=== PATIENT | male | born 1925 | race Caucasian/White ===

== ENCOUNTER 2016-10-24 14:55 | Inpatient (IN) ==
--- NOTE | 2016-10-24 15:30 | Pulmonology History & Physical ---
Assessment and Plan (1) COPD (chronic obstructive pulmonary disease) Status: Acute Assessment and plan: He is having a bit of an exacerbation with increased sputum. He is placed on intravenous Levaquin and Solu-Medrol as well as nebulized bronchodilators. (2) Chronic atrial fibrillation Status: Chronic Assessment and plan: He is chronically on anticoagulants with Eliquis. Rate is controlled with digoxin and diltiazem. He is also on flecainide. (3) Esophageal carcinoma Status: Chronic Assessment and plan: With his nausea and vomiting and weight loss we may need to get this evaluated. For now we just need to rehydrate him. (4) Posttraumatic stress disorder Status: Chronic Assessment and plan: He gets quite anxious during exacerbations. This came on following service. (5) Nausea vomiting and diarrhea Status: Resolved Assessment and plan: Need to be sure he does not have theophylline or digoxin toxicity. Plan to rehydrate. May just be viral gastroenteritis. 12 point system: reviewed and no additional remarkable complaints except as stated - Constitutional Constitutional: Present: weakness, weight loss - Cardiovascular Cardiovascular: Present: dyspnea, dyspnea on exertion - Respiratory Respiratory: Present: cough, dyspnea, dyspnea on exertion, change in phlegm color - Gastrointestinal Gastrointestinal: Present: diarrhea, nausea, vomiting - Neurological Neurological: Present: dizziness - Psychiatric Psychiatric: Present: anxiety, other (He has a history of posttraumatic stress disorder) History of Present Illness Chief complaint: Nausea vomiting weight loss History of present illness: Mr. Ambrosio is a 89 year old male who has severe COPD. For the past 2 weeks he has had some nausea and vomiting poor appetite also has had some diarrhea. He has had nightmares and insomnia. He has lost about 10 pounds. He gets dizzy when he raises his head. He is on theophylline and digoxin. On a long list of other medications. Not on any recent antibiotics or steroids. He is also coughing up some very thick sputum. He has vomiting usually after he eats. Needs a 3 or 4 episodes of diarrhea a day. He has not had chills or fever. He has not coughed up any blood. It is pertinent that he has a history of esophageal cancer and has been treated with radiation and chemotherapy and felt to be in remission. Home Medications Medication Instructions Recorded Confirmed Type Digoxin 125 mcg PO DAILY 09/08/14 05/15/16 History Docusate Sodium [Colace] 100 mg PO BEDTIME 09/08/14 05/15/16 History Flecainide [Tambocor] 100 mg PO BID 09/08/14 05/15/16 History Multivitamin [Multivitamins] 1 each PO DAILY 09/08/14 05/15/16 History Omeprazole [Prilosec] 20 mg PO DAILY 09/08/14 05/15/16 History Budesonide/Formoterol 160-4.5 2 puff INH BID 10/21/14 05/15/16 History [Symbicort 160-4.5] Furosemide Tab [Lasix Tab] 20 mg PO DAILY 10/21/14 05/15/16 History Tiotropium Inhalation [Spiriva] 18 mcg INH DAILY 10/21/14 05/15/16 History Albuterol Neb [Proventil Neb] 0.63 mg RESP TX Q6HR 02/18/15 05/15/16 History Apixaban [Eliquis] 2.5 mg PO BID tablet 03/15/15 05/15/16 Rx Cetirizine Tab [ZyrTEC Tab] 10 mg PO DAILY 01/31/16 05/15/16 History HydrOXYzine PAMOATE CAP [Vistaril 25 mg PO BEDTIME PRN 01/31/16 05/15/16 History Cap] Potassium Chloride 10 meq PO DAILY 01/31/16 05/15/16 History dilTIAZem HCl [Tiazac] 120 mg PO DAILY 01/31/16 05/15/16 History Aspirin [Ecotrin] 81 mg PO DAILY 02/01/16 05/15/16 History Simvastatin [Zocor] 10 mg PO DAILY 03/25/16 05/15/16 History Donepezil HCl 10 mg PO DAILY 05/15/16 05/15/16 History HYDROcodone/ACETAMIN 5-325 [[place] 1 tablet PO Q6H 05/15/16 05/15/16 History 5-325] LORazepam TAB [Ativan Tab] 1 mg PO DAILY 05/15/16 05/15/16 History Levofloxacin Tab [Levaquin Tab] 500 mg PO DAILY #5 tablet 05/26/16 Rx predniSONE TAB [PredniSONE] 40 mg PO DAILY #5 tablet 05/26/16 Rx Allergies Allergy/AdvReac Type Severity Reaction Status Date / Time Cephalosporins Allergy Severe SHORTNESS Verified 09/08/14 06:18 OF BREATH meperidine [From Demerol] Allergy Severe SHORTNESS Verified 09/08/14 06:18 OF BREATH latex Allergy Intermediate ITCHING Verified 10/22/14 23:27 Medical,Surgical,& Family Hx - Medical History Cardio: History of: Cardiac Dysrhythmia (a fib), Hypertension No history of: Aneurysm, Cerebrovascular Disease, Congenital Heart Disease, CHF, CAD, CA, Pacemaker, PVD, Valvular Heart Disease, Cardiovascular Problems Psychological: History of: Anxiety Disorders (post traumatic stress disorder) No history of: ADHD, Behavior Problems, Bipolar Disorder, Depression, Previous Suicide Attempt, Psychiatric/Substance Abuse Tx, Schizophrenia, Violent Behavior, Psychiatric Problems Neurology: No history of: Brain Aneurysm, Cerebral Hemorrhage, Cerebrovascular Accident , Cerebral Palsy, Dementia, Migraine, Multiple Sclerosis, Parkinson's Disease, Peripheral Neuropathy, Seizures, TIA, Vertigo, Neurologocal Cancer HEENT: History of: Eye Problem (cataract) No history of: Ear Problem, Dental Problems, Glaucoma, Oral Cancer, HEENT Problems Endocrine: History of: Dyslipidemia No history of: Adrenal Disease, Diabetes Mellitus (IDDM), Diabetes Mellitus ( NIDDM), Thyroid Disorder, Endocrine Cancer, Endocrine Problems Rheumatology: History of;: Rheumatological Problems No history of;: Fibromyalgia, Gout, Myasthenia Gravis, Psoriasis, Rheumatoid Arthritis, Sjogrens, Systemic Lupus Erythematosus Respiratory: History of: Bronchitis (chronic), COPD, Intubation, Pneumonia No history of: Asthma, Obstructive Sleep Apnea, Pulmonary Embolism, Pulmonary Hypertension, Lung Cancer, Respiratory Problems Renal: No history of: Renal (Kidney) Cancer, Dialysis, Renal Failure, Renal Problems Genitourinary: No history of: Bladder Problem, Kidney Stones, Prostate Problems, Recurring Urinary Tract Infections, Genitourinary Cancer, Problems Gastrointestinal: History of: GERD, Polyps, Gastrointestinal Cancer (esophageal) No history of: Bowel Obstruction, Clostridium Difficile, Crohn's Disease, Diverticulitis/ Diverticulosis, Esophageal Varices, Gastrointestinal Bleed, Hemorrhoids, Hematochezia, Hepatitis, Liver Problems, Pancreatitis, Ulcerative Colitis, GI Problems Musculoskeletal: History of: Musculoskeletal Problems (right knee injury in [place] 1950) No history of: Amputation, Back/Neck Problems, Degenerative Disk Disease, Herniated Disk, Osteoporosis, Musculoskeletal Cancer Hematology: No history of: Anemia, Blood Transfusion Reaction, Bleeding Problems, Clotting Problems, Sickle Cell Disease, Hematologic Cancer, Blood Disorders Reproductive: No histroy: Penile Disorder, Sexually Transmitted Disease, Reproductive Cancer, Reproductive Problems Other: History of: Cancer (ESOPHAGEAL) No history of: Anesthesia Reactions, Anaphylaxis, Eczema, HIV, Malignant Hyperthermia, MRSA, Vancomycin-Resistant Enterococci, Skin Problems, Miscellaneous Medical Problems - Surgical History Cardiac Surgeries: Sugical HX of: Femoral-Popliteal Bypass Graft, Vascular Access Devices (mediport) Patient Denies: Cardiac Catheterization, Cardiac Surgery, Carotid Endarterectomy, Internal Defibrillator Thoracic Surgeries: Patient denies;: Kidney (Renal Surgery), Lithotripsy, Nephrectomy, Organ Transplant, Lobectomy Neurologic Surgeries: Patient denies: Brain Aneurysm, Cerebral Hemorrhage, Neurologic Surgery HEENT Surgeries: Surgical HX of: Eye Surgery (cataract), Tonsilectomy & Adenoidectomy Patient denies: Carotid Endarterectomy, Thyroid Surgery Abdominal Surgeries: Surgical HX of: Abdominal Surgery, Appendectomy, Cholecystectomy, Colonoscopy, EGD Patient denies: Gastric Bypass Surgery, Hernia Repair, Splenectomy Reproductive Surgeries: Patient denies;: Breast Surgery, Cystoscopy, Genitourinary Surgery, Prostate Surgery, Vasectomy Orthopedic Surgeries: Surgical HX of;: Implanted Devices (MEDIPORT) Patient denies;: Orthopedic Surgery, Spinal Surgery, Total Hip Replacement, Total Knee Replacement - Family History Family History: Reports;: Family Cancer (SISTER), Family Heart Disease (dad), Family Stroke (mom) Denies;: Family Anesthesia Reaction, Family Diabetes, Family Hypertension, Family Psychiatric Problems - Social History Smoking Status: Never smoker Exam ([place]) H&P - Constitutional Vitals: Oxygen saturation 94% on room air. Temperature 98.1. Pulse 78. Respirations 16. Blood pressure 96/42. Weight is 158.6. BMI 22.12. Exam: Pupils react to light. Skin turgor is poor. Throat clear. Neck is supple no bruits. Chest reveals prolonged expiratory phase but I do not hear any active wheezing and no rales. Heart normal rate rhythm no murmurs. Abdomen soft nontender no masses. Extremities no clubbing cyanosis or edema. Calves nontender.
[2016-10-24] MEDS ORDERED: MAGNESIUM HYDROXIDE SUSP 30 ML UDCUP PO PRN (16:15)
[2016-10-24] MEDS ORDERED: ONDANSETRON 4 MG/2 ML VIAL IV PRN (16:15)
[2016-10-24] MEDS ORDERED: LOPERAMIDE 2 MG CAPSULE PO PRN (16:16)
[2016-10-24] MEDS ORDERED: ALUMINUM/MAGNES/SIMETH MAX STR 30 ML UDCUP PO PRN (16:17)
[2016-10-24] MEDS ORDERED: guaiFENesin 200 MG/10 ML UDCUP PO PRN (16:17)
[2016-10-24] MEDS ORDERED: ALBUTEROL 2.5 MG/3 ML NEB RESP TX PRN (16:23)
[2016-10-24 16:42] LABS: Basophils # 0.1 10*3/uL (0.0-0.2); Basophils % 0.7 % (0.0-0.8); Eosinophils # 0.3 10*3/uL (0.0-0.87); Eosinophils % 2.3 % (0.00-10.9); Hemoglobin 11.7 GM/DL (14.0-18.0); Immature Granulocytes % 0.6 %; Immature Granulocytes Absolute 0.07 #; Lymphocytes # 1.1 10*3/uL (1.4-4.0); Lymphocytes % 9.3 % (21.2-54.2); Mean Corpuscular HGB Conc 33.4 GM/DL (32-36); Mean Corpuscular Hemoglobin 28 PG (27-34); Mean Corpuscular Volume 83.7 FL (87-102); Mean Platelet Volume 8.8 FL (9.6-12.0); Monocytes # 1.2 10*3/uL (0.11-0.8); Monocytes % 9.9 % (1.7-12.7); Neutrophils # 9.1 10*3/uL (1.4-7.4); Neutrophils % 77.2 % (38.7-73.9); Platelet Count 293 T/CUMM (130-400); Red Blood Count 4.18 MC/CUMM (3.8-5.5); Red Cell Distribution Width 15.1 % (9.3-17.3); White Blood Count 11.8 T/CUMM (4-12)
--- NOTE | 2016-10-24 16:53 | XRay Report ---
XR chest 2V Date: 10/24/2016 4:15 PM History: COPD exacerbation Comparison: 05/24/2016 Technique: PA and lateral chest Findings: The heart is small and compressed by the overexpanded lungs. Calcification in the aortic knob. Stable right subclavian venous access catheter. Progressive parenchymal findings at the lung bases. Stable mediastinum with degenerative changes. Impression: Bullous emphysema with chronic scarring. Progressive parenchymal findings especially at the lung bases which can be seen with minimal atelectasis/infiltration. PROCEDURE INTERPRETED AT [facility] DEPARTMENT OF RADIOLOGY Final Report Signed by: Dr. Erin Cronin
[2016-10-24 17:06] LABS: Calcium 8.6 MG/DL (8.5-10.1); Osmolality,Calculated 277.8 MOS/KG (273-304); Potassium 3.9 MMOL/L (3.5-5.1)
[2016-10-24] MEDS: DEXT 5% NACL 0.45% KCL 10 MEQ 10 MEQ/1,000 ML BAG IV SCH (17:50)
[2016-10-24] MEDS: LEVOFLOXACIN INJ 500 MG in PREMIX 1 EACH IV SCH (17:50)
[2016-10-24] MEDS ORDERED: methylPREDNISolone SOD SUC 40 MG/1 ML VIAL IV SCH (21:00)
[2016-10-24] MEDS: ACETAMINOPHEN 325 MG TABLET PO PRN (21:12)
[2016-10-24] MEDS: FLECAINIDE 100 MG TABLET PO SCH (21:13)
[2016-10-24] MEDS: APIXABAN 2.5 MG TABLET PO SCH (21:13)
[2016-10-24] MEDS: DONEPEZIL 10 MG TABLET PO SCH (21:13)
[2016-10-24] MEDS: BUDESONIDE/FORMOTEROL 160-4.5 INHALER 6 GM INH SCH (21:14)
[2016-10-24] MEDS: QUEtiapine 25 MG TABLET PO SCH (21:14)
[2016-10-24] MEDS: SIMVASTATIN 10 MG TABLET PO SCH (21:14)
[2016-10-24] MEDS: IPRATROPIUM 500 MCG/2.5 ML NEB RESP TX SCH (22:34)
[2016-10-24] MEDS: ALBUTEROL/IPRATROPIUM 3 ML NEB RESP TX SCH (22:35)
[2016-10-25] MEDS: ALBUTEROL/IPRATROPIUM 3 ML NEB RESP TX SCH ×4 (00:07→20:55)
[2016-10-25] MEDS: DEXT 5% NACL 0.45% KCL 10 MEQ 10 MEQ/1,000 ML BAG IV SCH ×3 (03:43→18:26)
[2016-10-25] MEDS: IPRATROPIUM 500 MCG/2.5 ML NEB RESP TX SCH ×4 (07:38→20:55)
[2016-10-25 07:42] LABS: Calcium 8.4 MG/DL (8.5-10.1); Potassium 4.2 MMOL/L (3.5-5.1)
--- NOTE | 2016-10-25 08:00 | Pulmonology Progress Note ---
Pulmonary - PN: Subj Interval history: This 89-year-old white male has severe COPD and previous history of pulmonary thromboembolic disease. Also esophageal cancer that in remission. He came in with a one-week history of nausea vomiting diarrhea and about a 10 pound weight loss. He was hypotensive. We admitted him held his Lanoxin and theophylline. The digoxin level was 1.1 which is normal. Theophylline level was ordered but not done. Theophylline was held. This morning his nausea and vomiting is better. He is tolerating clear liquids. We will progress his diet as tolerated. I am concerned that he may have been theophylline toxic. It will be difficult to determine at this point. We will get a theophylline level this morning and see if it is elevated now. His COPD is showing a mild exacerbation. He is on Solu-Medrol antibiotics and bronchodilators. Exam (Progress Note) - Constitutional Vitals: Period Temp Pulse Resp BP Sys/Finney Pulse Ox Last 24 Hr 97.7 F-99.2 F 58-84 18-20 105-141/51-63 92-100 Exam: Patient's alert oriented. Systolic blood pressure 110. Pupils react to light. Throat clear. Neck supple no bruits. Chest reveals some mild expiratory wheezes more on the left side than the right. Heart normal rate rhythm no murmurs. Abdomen soft nontender no masses. Bowel sounds present. Extremities no clubbing cyanosis edema. Calves nontender. Results - Labs CBC & BMP: 10/24/16 16:34 10/25/16 06:36 Lab Results: I have reviewed the past 24 hour labs - Diagnostic Findings Procedure: Chest x-ray: image reviewed by me (Hyperinflation, old vascular scars , no acute infiltrates.) Assessment and Plan (1) COPD (chronic obstructive pulmonary disease) Status: Acute Assessment and plan: He is having a bit of an exacerbation with increased sputum. He is placed on intravenous Levaquin and Solu-Medrol as well as nebulized bronchodilators. 10/25/2016 he has a relatively mild exacerbation of COPD. Will decrease medicines and change to oral as his appetite improved. Current Visit: No (2) Chronic atrial fibrillation Status: Chronic Assessment and plan: He is chronically on anticoagulants with Eliquis. Rate is controlled with digoxin and diltiazem. He is also on flecainide. 10/25/2016 rate is controlled. Current Visit: No (3) Esophageal carcinoma Status: Chronic Assessment and plan: With his nausea and vomiting and weight loss we may need to get this evaluated. For now we just need to rehydrate him. 10/25/2016 if he tolerates solid food we will not evaluate further. If not we will need GI to see him. Current Visit: No (4) Posttraumatic stress disorder Status: Chronic Assessment and plan: He gets quite anxious during exacerbations. This came on following service. 10/25/16 does not appear anxious this morning. Current Visit: No (5) Nausea vomiting and diarrhea Status: Resolved Assessment and plan: Need to be sure he does not have theophylline or digoxin toxicity. Plan to rehydrate. May just be viral gastroenteritis. 10/25/2016 his nausea has subsided. I am concerned still that it may have been theophylline toxicity. Theophylline level was not drawn as ordered yesterday. Hopefully we can get one this morning and it can guide us. We will leave theophylline off. Current Visit: No
[2016-10-25] MEDS: FLECAINIDE 100 MG TABLET PO SCH ×2 (09:50→20:57)
[2016-10-25] MEDS: ASPIRIN CHEW 81 MG TABLET PO SCH (09:51)
[2016-10-25] MEDS: PANTOPRAZOLE 40 MG TABLET PO SCH (09:51)
[2016-10-25] MEDS: APIXABAN 2.5 MG TABLET PO SCH ×2 (09:51→20:54)
[2016-10-25] MEDS: methylPREDNISolone SOD SUC 40 MG/1 ML VIAL IV SCH ×2 (09:52→20:52)
[2016-10-25] MEDS: BUDESONIDE/FORMOTEROL 160-4.5 INHALER 6 GM INH SCH ×2 (09:56→20:51)
[2016-10-25] MEDS: DILTIAZEM CD 120 MG CAPSULE PO SCH (09:56)
[2016-10-25] MEDS: ACETAMINOPHEN 325 MG TABLET PO PRN ×2 (11:00→18:26)
[2016-10-25] MEDS: DIGOXIN 0.125 MG TABLET PO SCH (13:59)
[2016-10-25] MEDS: LEVOFLOXACIN INJ 500 MG in PREMIX 1 EACH IV SCH (20:51)
[2016-10-25] MEDS: QUEtiapine 25 MG TABLET PO SCH (20:54)
[2016-10-25] MEDS: SIMVASTATIN 10 MG TABLET PO SCH (20:57)
[2016-10-25] MEDS: DONEPEZIL 10 MG TABLET PO SCH (20:58)
[2016-10-26] MEDS: DEXT 5% NACL 0.45% KCL 10 MEQ 10 MEQ/1,000 ML BAG IV SCH ×2 (01:08→06:41)
[2016-10-26] MEDS: ALBUTEROL/IPRATROPIUM 3 ML NEB RESP TX SCH ×4 (01:18→19:16)
[2016-10-26] MEDS ORDERED: ZALEPLON 5 MG CAPSULE PO PRN (07:19)
--- NOTE | 2016-10-26 07:23 | Pulmonology Progress Note ---
Pulmonary - PN: Subj Interval history: This 89-year-old white male has severe COPD and previous history of pulmonary thromboembolic disease. Also esophageal cancer that in remission. He came in with a one-week history of nausea vomiting diarrhea and about a 10 pound weight loss. He was hypotensive. We admitted him held his Lanoxin and theophylline. The digoxin level was 1.1 which is normal. Theophylline level was ordered but not done. Theophylline was held. This morning his nausea and vomiting is better. He is tolerating clear liquids. We will progress his diet as tolerated. I am concerned that he may have been theophylline toxic. It will be difficult to determine at this point. We will get a theophylline level this morning and see if it is elevated now. His COPD is showing a mild exacerbation. He is on Solu-Medrol antibiotics and bronchodilators. 10/26/16 patient had difficult time sleeping last night. He is wheezing a little more. We will stop his IV fluids. Hold Sonata for him to sleep tonight. He gets quite anxious. He has both traumatic stress disorder and when he gets anxious at times. Exam (Progress Note) - Constitutional Vitals: Period Temp Pulse Resp BP Sys/Finney Pulse Ox Last 24 Hr 97.4 F-98.5 F 71-90 18-20 107-135/43-59 92-99 Exam: Patient's alert oriented. Systolic blood pressure normal. Pupils react to light. Throat clear. Neck supple no bruits. Chest reveals some mild expiratory wheezes more on the left side than the right. Heart normal rate rhythm no murmurs. Abdomen soft nontender no masses. Bowel sounds present. Extremities no clubbing cyanosis edema. Calves nontender. Results - Labs CBC & BMP: 10/24/16 16:34 10/25/16 06:36 Lab Results: I have reviewed the past 24 hour labs Assessment and Plan (1) COPD (chronic obstructive pulmonary disease) Status: Acute Assessment and plan: He is having a bit of an exacerbation with increased sputum. He is placed on intravenous Levaquin and Solu-Medrol as well as nebulized bronchodilators. 10/25/2016 he has a relatively mild exacerbation of COPD. Will decrease medicines and change to oral as his appetite improved. 10/26/2016 he is having an exacerbation. 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 Current Visit: No (2) Chronic atrial fibrillation Status: Chronic Assessment and plan: He is chronically on anticoagulants with Eliquis. Rate is controlled with digoxin and diltiazem. He is also on flecainide. 10/25/2016 rate is controlled. 10/26/2016 right is controlled. Current Visit: No (3) Esophageal carcinoma Status: Chronic Assessment and plan: With his nausea and vomiting and weight loss we may need to get this evaluated. For now we just need to rehydrate him. 10/25/2016 if he tolerates solid food we will not evaluate further. If not we will need GI to see him. 10/27/2016 no problems with swallowing. Current Visit: No (4) Posttraumatic stress disorder Status: Chronic Assessment and plan: He gets quite anxious during exacerbations. This came on following service. 10/25/16 does not appear anxious this morning. 10/26/2016 more anxious after not sleeping last night. Current Visit: No (5) Nausea vomiting and diarrhea Status: Resolved Assessment and plan: Need to be sure he does not have theophylline or digoxin toxicity. Plan to rehydrate. May just be viral gastroenteritis. 10/25/2016 his nausea has subsided. I am concerned still that it may have been theophylline toxicity. Theophylline level was not drawn as ordered yesterday. Hopefully we can get one this morning and it can guide us. We will leave theophylline off. 09/26/2016 this has resolved and was probably gastroenteritis. Theophylline level was acceptable. Current Visit: No
[2016-10-26] MEDS: IPRATROPIUM 500 MCG/2.5 ML NEB RESP TX SCH (07:58)
[2016-10-26] MEDS: DILTIAZEM CD 120 MG CAPSULE PO SCH (09:45)
[2016-10-26] MEDS: FLECAINIDE 100 MG TABLET PO SCH ×2 (09:45→21:06)
[2016-10-26] MEDS: PANTOPRAZOLE 40 MG TABLET PO SCH (09:45)
[2016-10-26] MEDS: APIXABAN 2.5 MG TABLET PO SCH ×2 (09:46→21:08)
[2016-10-26] MEDS: BUDESONIDE/FORMOTEROL 160-4.5 INHALER 6 GM INH SCH ×2 (09:46→21:10)
[2016-10-26] MEDS: ASPIRIN CHEW 81 MG TABLET PO SCH (09:46)
[2016-10-26] MEDS: DIGOXIN 0.125 MG TABLET PO SCH (13:48)
[2016-10-26] MEDS ORDERED: methylPREDNISolone SOD SUC 40 MG/1 ML VIAL IV SCH (21:00)
[2016-10-26] MEDS: QUEtiapine 25 MG TABLET PO SCH (21:03)
[2016-10-26] MEDS: DONEPEZIL 10 MG TABLET PO SCH (21:06)
[2016-10-26] MEDS: SIMVASTATIN 10 MG TABLET PO SCH (21:06)
[2016-10-26] MEDS: LEVOFLOXACIN INJ 500 MG in PREMIX 1 EACH IV SCH (21:08)
[2016-10-27] MEDS: ALBUTEROL/IPRATROPIUM 3 ML NEB RESP TX SCH ×2 (00:27→08:20)
[2016-10-27] MEDS ORDERED: ALBUTEROL 0.63 MG/3 ML NEB RESP TX SCH (07:00)
[2016-10-27 07:30] VITALS: BP 128/62
--- NOTE | 2016-10-27 08:03 | XRay Report ---
XR chest 2V Date: 10/27/2016 4:00 AM History: COPD exacerbation Comparison: 10/24/2016 Technique: PA and lateral chest Findings: The heart is compressed by the over expanded lungs. Calcification in the wall of the aorta with coronary artery calcifications. Stable right subclavian venous access catheter. Persistent diffuse parenchymal findings especially at the lung bases with stable mediastinum and osseous structures. Impression: Bullous emphysema with chronic scarring. Residual atelectasis/infiltration in the lower lobes with ill-defined densities. Follow-up chest x-ray recommended. Diffuse arterial calcifications including coronary artery calcifications. PROCEDURE INTERPRETED AT [facility] DEPARTMENT OF RADIOLOGY Final Report Signed by: Dr. Erin Cronin
--- NOTE | 2016-10-27 08:15 | Discharge Summary ---
Hospital Course - Hospital Course Hospital Course: This 89-year-old white male has severe COPD and a history of esophageal cancer. Follow-up week prior to admission he had nausea vomiting and diarrhea and had lost about 10 pounds. He was hypotensive with a blood pressure in the 90s systolic. He was having some difficulty swallowing. He was admitted placed on IV fluids and we gave him Levaquin and Solu-Medrol for exacerbation of his COPD. After about a day and a half he started swallowing better. We advanced his diet to a regular diet the last 24 hours and is doing well with it. He had trouble sleeping as she gets quite anxious he has post traumatic stress disorder. He was given a sleeping medicine last night, Sonata. He slept well. This morning he is alert lungs are clear and he should be ready for discharge. I think he had an acute viral gastroenteritis complicated by dehydration as the principal cause of his admission. Patient relates that he had stopped taking Eliquis at home because he also takes baby aspirin. He was advised to resume the Eliquis. He has atrial fibrillation and is at risk for stroke. Diagnosis - Discharge Diagnosis (1) COPD (chronic obstructive pulmonary disease) Status: Acute (2) Chronic atrial fibrillation Status: Chronic (3) Esophageal carcinoma Status: Chronic (4) Posttraumatic stress disorder Status: Chronic (5) Nausea vomiting and diarrhea Status: Resolved Discharge Plan - Discharge Data Disposition: Disch To Home/Self Care Condition at Discharge: Stable Discharge Diet: advance to your usual diet Activity: resume usual activities as tolerated Hygiene: no restrictions Weight Bearing at Discharge: full weight bearing Driving: no restrictions Contact your physician if you experience:: fever over 101, Shortness of breath - Discharge Medications No Action Flecainide [Tambocor] 100 mg PO BID Omeprazole [Prilosec] 20 mg PO DAILY Digoxin 125 mcg PO DAILY Docusate Sodium [Colace] 100 mg PO BEDTIME Multivitamin [Multivitamins] 1 each PO DAILY Tiotropium Inhalation [Spiriva] 18 mcg INH DAILY Budesonide/Formoterol 160-4.5 [Symbicort 160-4.5] 2 puff INH BID Furosemide Tab [Lasix Tab] 20 mg PO DAILY Albuterol Neb [Proventil Neb] 0.63 mg RESP TX Q6HR Apixaban [Eliquis] 2.5 mg PO BID tablet Cetirizine Tab [ZyrTEC Tab] 10 mg PO DAILY dilTIAZem HCl [Tiazac] 120 mg PO DAILY HydrOXYzine PAMOATE CAP [Vistaril Cap] 25 mg PO BEDTIME PRN PRN Reason: Anxiety Potassium Chloride 10 meq PO DAILY Aspirin [Ecotrin] 81 mg PO DAILY Simvastatin [Zocor] 10 mg PO DAILY Donepezil HCl 10 mg PO DAILY HYDROcodone/ACETAMIN 5-325 [[place] 5-325] 1 tablet PO Q6H LORazepam TAB [Ativan Tab] 1 mg PO DAILY Levofloxacin Tab [Levaquin Tab] 500 mg PO DAILY #5 tablet predniSONE TAB [PredniSONE] 40 mg PO DAILY #5 tablet - Follow Up or Referral Follow Up: Rogelio Boudreaux MD [Primary Care Provider] - 2 Weeks (With BMP and chest x-ray) - Forms/Instructions Exam - Constitutional Vitals: Period Temp Pulse Resp BP Sys/Finney Pulse Ox Last 24 Hr 97.4 F-98.9 F 70-100 16-22 109-128/46-63 92-99 Exam: Patient's alert oriented. Systolic blood pressure normal. Pupils react to light. Throat clear. Neck supple no bruits. Chest is clear bilaterally, with prolonged expiratory phase. Heart normal rate rhythm no murmurs. Abdomen soft nontender no masses. Bowel sounds present. Extremities no clubbing cyanosis edema. Calves nontender. Discharge Results Procedures and tests throughout hospitalization: Pending Orders 10/24/16 21:24 Stool Culture Stat Labs on day of discharge: Labs from last 24 hours 10/27/16 07:11 POC Glucose 159 H - Impressions #1 acute gastroenteritis with dehydration and hypotension 2. Severe COPD with mild exacerbation 3. History of atrial fibrillation 4. Esophageal carcinoma in remission 5. History of pulmonary thromboembolic disease - Imaging and Cardiology Procedure: Chest x-ray: image reviewed by me (X-ray this morning show some old atelectatic scarring in both bases. Hyperinflation is noted. He has a Mediport over the right upper chest. No acute infiltrates.) DS: Provider Date of admission: 10/24/16 15:29 Primary care physician: Rogelio Boudreaux MD Attending physician on admission: Rogelio Boudreaux MD Consults: 10/24/16 16:09 Consult to Dietitian [CONS] Routine Reason for Dietitian: Dietary Consult Discharging clinician: Rogelio Boudreaux MD Expected date of discharge: 10/27/16
[2016-10-27] MEDS ORDERED: HydrOXYzine PAMOATE 25 MG CAPSULE PO PRN (08:22)
[2016-10-27] MEDS ORDERED: predniSONE 20 MG TABLET PO SCH ×2 (09:00)
[2016-10-27] MEDS ORDERED: DIGOXIN 0.125 MG TABLET PO SCH (09:00)
[2016-10-27] MEDS ORDERED: LEVOFLOXACIN 500 MG TABLET PO SCH (09:00)
[2016-10-27] MEDS ORDERED: FLECAINIDE 100 MG TABLET PO SCH (09:00)
[2016-10-27] MEDS ORDERED: APIXABAN 2.5 MG TABLET PO SCH (09:00)
[2016-10-27] MEDS ORDERED: NON-FORMULARY MEDICATION (Tiotropium Inhalation 18 MCG) INH SCH (09:00)
[2016-10-27] MEDS ORDERED: POTASSIUM CHLORIDE 10 MEQ TABLET PO SCH (09:00)
[2016-10-27] MEDS ORDERED: SIMVASTATIN 20 MG TABLET PO SCH (09:00)
[2016-10-27] MEDS ORDERED: DONEPEZIL 10 MG TABLET PO SCH (09:00)
[2016-10-27] MEDS ORDERED: CETIRIZINE 10 MG TABLET PO SCH (09:00)
[2016-10-27] MEDS ORDERED: ASPIRIN EC 81 MG TABLET PO SCH (09:00)
[2016-10-27] MEDS ORDERED: OMEPRAZOLE 20 MG CAPSULE PO SCH (09:00)
[2016-10-27] MEDS ORDERED: FUROSEMIDE 20 MG TABLET PO SCH (09:00)
[2016-10-27] MEDS ORDERED: LEVOFLOXACIN 250 MG TABLET PO SCH (09:00)
[2016-10-27] MEDS ORDERED: DILTIAZEM HCL 120 MG PO SCH (09:00)
[2016-10-27] MEDS ORDERED: BUDESONIDE/FORMOTEROL 160-4.5 INHALER 6 GM INH SCH (09:00)
[2016-10-27] MEDS ORDERED: LORazepam 1 MG TABLET PO SCH (09:00)
[2016-10-27] MEDS: PANTOPRAZOLE 40 MG TABLET PO SCH (09:43)
[2016-10-27] MEDS: FLECAINIDE 100 MG TABLET PO SCH (09:44)
[2016-10-27] MEDS: APIXABAN 2.5 MG TABLET PO SCH (09:44)
[2016-10-27] MEDS: DILTIAZEM CD 120 MG CAPSULE PO SCH (09:46)
[2016-10-27] MEDS: ASPIRIN CHEW 81 MG TABLET PO SCH (09:47)
[2016-10-27] MEDS: BUDESONIDE/FORMOTEROL 160-4.5 INHALER 6 GM INH SCH (09:47)
[2016-10-27] MEDS ORDERED: HEPARIN LOCK FLUSH 500 UNIT/5 ML SYRINGE IV PRN (10:52)
[2016-10-27] MEDS ORDERED: DOCUSATE SODIUM 100 MG CAPSULE PO SCH (21:00)
== END 2016-10-27 11:35 | disposition home or self-care (01) | DRG 192 ==
LOC: MERGE 15:29 → N.2E 15:29
PROVIDERS: ADMIT Internal Medicine Pulmonary Disease; ATTEND Internal Medicine Pulmonary Disease

== ENCOUNTER 2017-02-06 14:27 | Inpatient (IN) ==
--- NOTE | 2017-02-06 16:00 | Pulmonology History & Physical ---
Assessment and Plan (1) Diarrhea Status: Acute Assessment and plan: Patient has had diarrhea for a week and has had a poor appetite. He was hypotensive in the office and lethargic and dehydrated. Current Visit: Yes (2) Dehydration Status: Acute Assessment and plan: Patient is dehydrated his poor skin turgor. Little to eat in a week and having diarrhea. Admitted for IV fluids. Current Visit: Yes (3) Hypotension Status: Acute Assessment and plan: Likely due to dehydration. Hold his blood pressure medicines and hydrate. Current Visit: Yes (4) COPD (chronic obstructive pulmonary disease) Status: Acute Assessment and plan: Hypoxemia is probably due to his severe COPD plus the dehydration. Placed on nasal oxygen and sats have come up into the 90s. Continue nebulizer treatments. I am holding his theophylline because of the GI symptoms Current Visit: Yes (5) History of esophageal cancer Status: Acute Assessment and plan: [place] to be in remission. Not having any trouble swallowing at present. Current Visit: Yes 12 point system: reviewed and no additional remarkable complaints except as stated - Constitutional Constitutional: Present: anorexia, lethargy, malaise, weight loss - Cardiovascular Cardiovascular: Present: dyspnea, dyspnea on exertion - Respiratory Respiratory: Present: cough, dyspnea, dyspnea on exertion - Gastrointestinal Gastrointestinal: Present: diarrhea, odynophagia History of Present Illness Chief complaint: Diarrhea, dehydration History of present illness: Mr. Ambrosio is a 89 year old male who I follow for severe COPD. He is on a long list of medications and also has a history of esophageal cancer. He comes in now with diarrhea that has gone on for about a week. He has gotten where he can sit up without getting dizzy. He has not been eating much of anything. He is somewhat lethargic. He has not had a cough congestion or fever. He has not passed any blood. There has been no vomiting. Allergies Allergy/AdvReac Type Severity Reaction Status Date / Time meperidine [From Demerol] Allergy Verified 02/06/17 15:53 Medical,Surgical,& Family Hx - Medical History Gastrointestinal: History of: GI Problems (Esophageal cancer treated with radiation and chemotherapy and in remission) - Surgical History Abdominal Surgeries: Surgical HX of: Cholecystectomy, EGD Additional Surgical History: Had surgery for esophageal cancer - Social History Smoking Status: Former smoker Frequency of Alcohol Use: None Type of Drug Use: None Exam (Pulmonay) H&P - Constitutional Vitals: Period Temp Pulse Resp BP Sys/Finney Pulse Ox Last 24 Hr 97.6 F 79 20 113/57 99 Exam: Blood pressure 80/48 O2 sat 82% on room air came up to 96% with 2 L nasal biprong. Heart rate 76 temperature 98.0. Respiratory rate 16. Patient is responsive but drowsy. Pupils react to light. Throat is clear. Neck supple no bruits. Chest reveals prolonged expiratory phase no active wheezing. Heart normal rate rhythm no murmurs no rubs no gallops. Abdomen soft nontender there is some tenderness in the lower abdomen bowel sounds are present. Extremities no clubbing cyanosis or edema. Calves nontender.
[2017-02-06] MEDS ORDERED: ALBUTEROL 2.5 MG/3 ML NEB RESP TX PRN (16:58)
[2017-02-06] MEDS ORDERED: SODIUM CHLORIDE 0.9% 500 ML IV ONE (17:03)
[2017-02-06] MEDS ORDERED: LEVOFLOXACIN INJ 250 MG in PREMIX 1 EACH IV SCH (18:00)
--- NOTE | 2017-02-06 18:02 | XRay Report ---
XR chest 2V Indication: Shortness of breath. Comparison: Chest x-ray 10/27/2016 Technique: PA and lateral chest x-ray was performed. Findings: Heart size appears within normal limits. Atherosclerotic calcification of the aortic knob is present. Venous access device is stable. There has been interval increase in prominence of the hilar structures. Hilar adenopathy is not excluded. Nodular density is suggested in the mid left lung. This may represent a confluence of shadows emphysematous changes noted on the lateral image appears stable. Stranding in the retrocardiac space may reflect scarring and/or atelectasis.. Impression: 1. Interval increase in prominence of hilar structures may reflect enlargement of pulmonary arteries. Hilar adenopathy is not entirely excluded. 2. 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 Pulmonary nodule mid left lung is not excluded. 02/06/2017 5:58 PM PROCEDURE INTERPRETED AT [facility] DEPARTMENT OF RADIOLOGY Final Report Signed by: Dr. Haresh Sanchez
[2017-02-06 18:29] LABS: Bilirubin,Total 0.4 MG/DL (0.2-1.0); Calcium 8.7 MG/DL (8.5-10.1); Osmolality,Calculated 276.8 MOS/KG (273-304); Potassium 4.3 MMOL/L (3.5-5.1); Thyroid Stimulating Hormone 7.42 uIU/ml (0.358-3.74)
[2017-02-06] MEDS: methylPREDNISolone SOD SUC 40 MG/1 ML VIAL IV SCH (18:34)
[2017-02-06] MEDS: SODIUM CHLORIDE 0.9% 1,000 ML IV SCH (18:35)
[2017-02-06] MEDS ORDERED: ACETAMINOPHEN 325 MG TABLET PO PRN (18:48)
[2017-02-06] MEDS ORDERED: ONDANSETRON 4 MG/2 ML VIAL IV PRN (18:49)
[2017-02-06] MEDS ORDERED: guaiFENesin 200 MG/10 ML UDCUP PO PRN (18:52)
[2017-02-06] MEDS ORDERED: LOPERAMIDE 2 MG CAPSULE PO PRN (18:57)
[2017-02-06] MEDS ORDERED: MAGNESIUM HYDROXIDE SUSP 30 ML UDCUP PO PRN (18:58)
[2017-02-06] MEDS ORDERED: MAGNESIUM HYDROXIDE PO PRN (19:01)
[2017-02-06] MEDS ORDERED: [UNRECOGNIZED DRUG - OTHER] PO PRN (19:01)
[2017-02-06] MEDS ORDERED: SIMETHICONE PO PRN (19:01)
[2017-02-06] MEDS: APIXABAN 2.5 MG TABLET PO SCH (20:33)
[2017-02-06] MEDS: HydrOXYzine PAMOATE 25 MG CAPSULE PO PRN (20:34)
[2017-02-06] MEDS: SIMVASTATIN 10 MG TABLET PO SCH (20:34)
[2017-02-06] MEDS: DIGOXIN 0.125 MG TABLET PO SCH (20:34)
[2017-02-06] MEDS: FLECAINIDE 100 MG TABLET PO SCH (20:34)
[2017-02-06] MEDS: PROCHLORPERAZINE 10 MG TABLET PO SCH (20:34)
[2017-02-06] MEDS: IPRATROPIUM 500 MCG/2.5 ML NEB RESP TX SCH (20:34)
[2017-02-06] MEDS: DONEPEZIL 10 MG TABLET PO SCH (20:34)
[2017-02-06] MEDS: BUDESONIDE/FORMOTEROL 160-4.5 INHALER 6 GM INH SCH (22:19)
[2017-02-07] MEDS: IPRATROPIUM 500 MCG/2.5 ML NEB RESP TX SCH ×4 (02:28→19:42)
[2017-02-07] MEDS: SODIUM CHLORIDE 0.9% 1,000 ML IV SCH ×3 (03:20→18:45)
[2017-02-07] MEDS: methylPREDNISolone SOD SUC 40 MG/1 ML VIAL IV SCH (05:14)
[2017-02-07 07:09] LABS: Albumin 2.6 G/DL (3.4-5.0); Bilirubin,Total 0.7 MG/DL (0.2-1.0); Calcium 8.3 MG/DL (8.5-10.1); Osmolality,Calculated 285.4 MOS/KG (273-304); Total Protein 5.4 G/DL (6.4-8.3)
[2017-02-07] MEDS ORDERED: HEPARIN LOCK FLUSH 500 UNIT/5 ML SYRINGE IV PRN (07:45)
--- NOTE | 2017-02-07 07:45 | EKG Report ---
Stationary ECG Study [facility] Test Date: 02/07/2017 7:21:25 AM Pat Name: JANE ALFARO Department: Room: 236 Gender: M Mag[employer] Developer: MINI : [id number] Requested by: Rogelio Boudreaux Order Number: [id number] Reading MD: RODERICK GASCA Intervals [place] Rate: 85 P: 999 LA: 0 QRS: 55 QRSD: 165 T: 73 QT: 458 QTc: 500 Interpretive Statements NORMAL SINUS RHYTHM RIGHT BUNDLE BRANCH BLOCK Electronically Signed On 02-07-17 16:51:23 CDT by RODERICK GASCA [email or web address]
--- NOTE | 2017-02-07 08:12 | Pulmonology Progress Note ---
Pulmonary - PN: Subj Interval history: This 89-year-old white male whom I follow for severe COPD, came into the office yesterday hypotensive and dehydrated. He been having severe diarrhea for a week and was not eating. He is been in the hospital overnight on IV fluids and he feels better. Still having loose stools. We need to check his stool for C. difficile or any infectious agents. We will give him Imodium. His COPD is quiet at present. Exam (Progress Note) - Constitutional Vitals: Period Temp Pulse Resp BP Sys/Finney Pulse Ox Last 24 Hr 96.8 F-98.0 F 79-103 18-22 75-121/42-60 94-99 Exam: Patient's alert oriented vital signs normal. Pupils react to light. Throat is clear. Neck supple no bruits. Chest is clear equal breath sounds. He has prolonged expiratory phase. Heart normal rate rhythm no murmurs. Abdomen soft nontender no masses. Extremities no clubbing cyanosis or edema. Poor skin turgor. Results - Labs CBC & BMP: 02/07/17 05:35 Lab Results: I have reviewed the past 24 hour labs - Diagnostic Findings Procedure: Chest x-ray: image reviewed by me (Hyperinflation. No acute infiltrate.) Assessment and Plan (1) Diarrhea Status: Acute Assessment and plan: Patient has had diarrhea for a week and has had a poor appetite. He was hypotensive in the office and lethargic and dehydrated. 02/07/2017 still having diarrhea. Check for Clostridium difficile and pathologic bacteria. Current Visit: Yes (2) Dehydration Status: Acute Assessment and plan: Patient is dehydrated his poor skin turgor. Little to eat in a week and having diarrhea. Admitted for IV fluids. 02/07/2017 this appears to be better. Will reduce IV fluids. Progress diet. Current Visit: Yes (3) Hypotension Status: Acute Assessment and plan: Likely due to dehydration. Hold his blood pressure medicines and hydrate. 02/07/2017 blood pressure is better with hydration. Current Visit: Yes (4) COPD (chronic obstructive pulmonary disease) Status: Acute Assessment and plan: Hypoxemia is probably due to his severe COPD plus the dehydration. Placed on nasal oxygen and sats have come up into the 90s. Continue nebulizer treatments. I am holding his theophylline because of the GI symptoms 02/07/2017 continuing nasal oxygen. Theophylline has been held. He is getting some steroids because of possible adrenal suppression. Current Visit: Yes (5) History of esophageal cancer Status: Acute Assessment and plan: [place] to be in remission. Not having any trouble swallowing at present. Current Visit: Yes
[2017-02-07] MEDS: HEPARIN LOCK FLUSH 500 UNIT/5 ML SYRINGE IV SCH ×2 (09:00→21:56)
[2017-02-07] MEDS ORDERED: POTASSIUM CHLORIDE 10 MEQ TABLET PO SCH (09:00)
[2017-02-07] MEDS: MULTIVITAMIN (CENTRUM) TABLET PO SCH (09:15)
[2017-02-07] MEDS: ASPIRIN EC 81 MG TABLET PO SCH (09:15)
[2017-02-07] MEDS: FLECAINIDE 100 MG TABLET PO SCH ×2 (09:16→20:33)
[2017-02-07] MEDS: DIGOXIN 0.125 MG TABLET PO SCH (09:16)
[2017-02-07] MEDS: APIXABAN 2.5 MG TABLET PO SCH ×2 (09:17→20:33)
[2017-02-07] MEDS: PROCHLORPERAZINE 10 MG TABLET PO SCH ×2 (09:17→20:33)
[2017-02-07] MEDS: PANTOPRAZOLE 40 MG TABLET PO SCH (09:18)
[2017-02-07] MEDS: CETIRIZINE 10 MG TABLET PO SCH (09:19)
[2017-02-07] MEDS: BUDESONIDE/FORMOTEROL 160-4.5 INHALER 6 GM INH SCH ×2 (09:24→20:33)
[2017-02-07 09:58] LABS: Apearance,Urine Clear (Clear); Bacteria,Urine Occasional /HPF (Few); Bilirubin,Urine Negative (Negative); Blood, Urine NEGATIVE (Negative); Glucose,Urine (UA) Negative (Negative); Hyaline Casts,Urine 17 /LPF (0-3); Ketones,Urine 25 mg/dL (Negative); Mucus,Urine Many /LPF (Occasional); Nitrite,Urine Negative (Negative); Protein,Urine Negative; RBC,Urine 3 /HPF (0-4); Urine Color Yellow (Yellow); Urine Specific Gravity 1.025 (1.001-1.035); WBC,Urine 1 /HPF (0-6)
[2017-02-07 09:59] LABS: Urine Urobilinogen 0.2 EU/DL (0.2-1.0)
[2017-02-07] MEDS: SIMVASTATIN 10 MG TABLET PO SCH (20:33)
[2017-02-07] MEDS: DONEPEZIL 10 MG TABLET PO SCH (20:33)
[2017-02-07] MEDS: HydrOXYzine PAMOATE 25 MG CAPSULE PO PRN (20:37)
[2017-02-08] MEDS: IPRATROPIUM 500 MCG/2.5 ML NEB RESP TX SCH ×4 (00:17→21:12)
[2017-02-08] MEDS: SODIUM CHLORIDE 0.9% 1,000 ML IV SCH ×3 (02:45→18:12)
[2017-02-08] MEDS: MULTIVITAMIN (CENTRUM) TABLET PO SCH (08:49)
[2017-02-08] MEDS: APIXABAN 2.5 MG TABLET PO SCH ×2 (08:49→21:44)
[2017-02-08] MEDS: DIGOXIN 0.125 MG TABLET PO SCH (08:49)
[2017-02-08] MEDS: PROCHLORPERAZINE 10 MG TABLET PO SCH ×2 (08:49→21:45)
[2017-02-08] MEDS: ASPIRIN EC 81 MG TABLET PO SCH (08:49)
[2017-02-08] MEDS: PANTOPRAZOLE 40 MG TABLET PO SCH (08:50)
[2017-02-08] MEDS: CETIRIZINE 10 MG TABLET PO SCH (08:51)
[2017-02-08] MEDS: BUDESONIDE/FORMOTEROL 160-4.5 INHALER 6 GM INH SCH ×2 (08:53→21:48)
[2017-02-08] MEDS: FLECAINIDE 100 MG TABLET PO SCH ×2 (08:53→21:45)
[2017-02-08] MEDS: HEPARIN LOCK FLUSH 500 UNIT/5 ML SYRINGE IV SCH ×2 (08:54→21:46)
[2017-02-08] MEDS ORDERED: methylPREDNISolone SOD SUC 40 MG/1 ML VIAL IV SCH (09:00)
[2017-02-08] MEDS ORDERED: LEVOFLOXACIN 250 MG TABLET PO SCH (09:00)
[2017-02-08] MEDS: DONEPEZIL 10 MG TABLET PO SCH (21:45)
[2017-02-08] MEDS: SIMVASTATIN 10 MG TABLET PO SCH (21:45)
[2017-02-08] MEDS: HydrOXYzine PAMOATE 25 MG CAPSULE PO PRN (21:45)
[2017-02-09] MEDS: IPRATROPIUM 500 MCG/2.5 ML NEB RESP TX SCH ×3 (00:28→12:04)
[2017-02-09] MEDS: SODIUM CHLORIDE 0.9% 1,000 ML IV SCH (03:05)
--- NOTE | 2017-02-09 08:08 | Pulmonology Progress Note ---
Pulmonary - PN: Subj Interval history: This 89-year-old white male whom I follow for severe COPD, came into the office yesterday hypotensive and dehydrated. He been having severe diarrhea for a week and was not eating. He is been in the hospital overnight on IV fluids and he feels better. Still having loose stools. We need to check his stool for C. difficile or any infectious agents. We will give him Imodium. His COPD is quiet at present. 02/08/2017 patient feeling better. Reduce IV fluids. Eating fairly well. Diarrhea resolved. Exam (Progress Note) - Constitutional Vitals: Period Temp Pulse Resp BP Sys/Fniney Pulse Ox Last 24 Hr 96.2 F-97.9 F 64-84 18-20 107-148/55-73 86-99 Exam: Patient's alert oriented vital signs normal. Pupils react to light. Throat is clear. Neck supple no bruits. Chest is clear equal breath sounds. He has prolonged expiratory phase. Heart normal rate rhythm no murmurs. Abdomen soft nontender no masses. Extremities no clubbing cyanosis or edema. Skin turgor back to normal. Results - Labs CBC & BMP: 02/07/17 05:35 Lab Results: I have reviewed the past 24 hour labs Assessment and Plan (1) Diarrhea Status: Acute Assessment and plan: Patient has had diarrhea for a week and has had a poor appetite. He was hypotensive in the office and lethargic and dehydrated. 02/07/2017 still having diarrhea. Check for Clostridium difficile and pathologic bacteria. 02/08/2017 diarrhea improved. C. difficile pending. Stool for occult blood negative. Current Visit: Yes (2) Dehydration Status: Acute Assessment and plan: Patient is dehydrated his poor skin turgor. Little to eat in a week and having diarrhea. Admitted for IV fluids. 02/07/2017 this appears to be better. Will reduce IV fluids. Progress diet. 02/08/2017 hydration better. Continue IV fluids 1 more day. Current Visit: Yes (3) Hypotension Status: Acute Assessment and plan: Likely due to dehydration. Hold his blood pressure medicines and hydrate. 02/07/2017 blood pressure is better with hydration. 02/08/2017 hypotension resolved with rehydration. Current Visit: Yes (4) COPD (chronic obstructive pulmonary disease) Status: Acute Assessment and plan: Hypoxemia is probably due to his severe COPD plus the dehydration. Placed on nasal oxygen and sats have come up into the 90s. Continue nebulizer treatments. I am holding his theophylline because of the GI symptoms 02/07/2017 continuing nasal oxygen. Theophylline has been held. He is getting some steroids because of possible adrenal suppression. 02/08/2017 COPD stable. Patient on Levaquin for what we thought was a urinary tract infection but cultures have been negative. Current Visit: Yes (5) History of esophageal cancer Status: Acute Assessment and plan: [place] to be in remission. Not having any trouble swallowing at present. Current Visit: Yes
--- NOTE | 2017-02-09 08:12 | Discharge Summary ---
Hospital Course - Hospital Course Hospital Course: This 89-year-old white male came to my clinic on 02/06/2017. He was brought in by his sitter. The patient was lethargic and had a blood pressure of 80/48. He had poor skin turgor. He been having diarrhea for a week and not eating anything. His chemistries did not show any acute kidney injury but he was admitted and placed on IV fluids. We held his diuretics. His diarrhea has resolved. He did have a stool check for occult blood and it was negative. Clostridium difficile was ordered but has not been done because he has not had any more stools. He is eating very well. His blood pressure is up to normal. He has been rehydrated with IV fluids for 2-1/2 days. He is ready for discharge. He was given Solu-Medrol for possible adrenal insufficiency as he has had frequent rounds of prednisone for exacerbations of his COPD. We will stop that at discharge. He was started on Levaquin for having dysuria. However his urine culture is negative and we stopped that as well. Diagnosis - Discharge Diagnosis (1) Diarrhea Status: Resolved (2) Dehydration Status: Resolved (3) Hypotension Status: Resolved (4) COPD (chronic obstructive pulmonary disease) Status: Chronic (5) History of esophageal cancer Status: Chronic Discharge Plan - Discharge Data Disposition: Disch To Home/Self Care Condition at Discharge: Stable Discharge Diet: advance to your usual diet Activity: resume usual activities as tolerated Hygiene: no restrictions Weight Bearing at Discharge: full weight bearing Driving: not until seen by doctor Contact your physician if you experience:: fever over 101, Nausea/Vomiting - Discharge Medications No Action Flecainide [Tambocor] 100 mg PO BID Omeprazole [Prilosec] 20 mg PO DAILY Digoxin 125 mcg PO DAILY Docusate Sodium [Colace] 100 mg PO BEDTIME Multivitamin [Multivitamins] 1 each PO DAILY Tiotropium Inhalation [Spiriva] 18 mcg INH DAILY Budesonide/Formoterol 160-4.5 [Symbicort 160-4.5] 2 puff INH BID Furosemide Tab [Lasix Tab] 20 mg PO DAILY Albuterol Neb [Proventil Neb] 0.63 mg RESP TX Q6HR Apixaban [Eliquis] 2.5 mg PO BID tablet Cetirizine Tab [ZyrTEC Tab] 10 mg PO DAILY dilTIAZem HCl [Tiazac] 120 mg PO DAILY HydrOXYzine PAMOATE CAP [Vistaril Cap] 25 mg PO BEDTIME PRN PRN Reason: Anxiety Potassium Chloride 10 meq PO DAILY Aspirin [Ecotrin] 81 mg PO DAILY Simvastatin [Zocor] 10 mg PO DAILY Donepezil HCl 10 mg PO DAILY HYDROcodone/ACETAMIN 5-325 [[place] 5-325] 1 tablet PO Q6H LORazepam TAB [Ativan Tab] 1 mg PO DAILY Tiotropium Inhalation [Spiriva Handihaler] 18 mcg INH DAILY Simvastatin [Zocor] 10 mg PO DAILY predniSONE TAB [PredniSONE] 40 mg PO DAILY Potassium Chloride 10 meq PO DAILY Omeprazole [Prilosec] 20 mg PO DAILY Multivitamin [One Daily Multivitamin] 1 tablet PO DAILY levoFLOXacin [Levofloxacin] 500 mg PO DAILY HydrOXYzine PAMOATE CAP [Vistaril Cap] 25 mg PO QPM Furosemide 20 mg PO DAILY Flecainide [Tambocor] 100 mg PO BID Donepezil HCl 10 mg PO DAILY Docusate Sodium [Colace] 100 mg PO QPM Digoxin 125 mcg PO DAILY Cetirizine Tab [ZyrTEC Tab] 10 mg PO DAILY Budesonide/Formoterol 160-4.5 [Symbicort 160-4.5] 2 puff INH BID Aspirin [Ecotrin] 81 mg PO DAILY Albuterol Neb [Proventil Neb] 0.63 mg INH Q6HR Levofloxacin Tab [Levaquin Tab] 500 mg PO DAILY #5 tablet predniSONE TAB [PredniSONE] 40 mg PO DAILY #5 tablet Theophylline ER Cap (24 Hr) [Tor-24] 300 mg PO DAILY LORazepam TAB [Ativan Tab] 1 mg PO DAILY HYDROcodone/ACETAMIN 5-325 [[place] 5-325] 1 tablet PO Q6HR PRN PRN Reason: Pain dilTIAZem HCl [Diltiazem HCl] 120 mg PO DAILY Apixaban [Eliquis] 2.5 mg PO BID - Follow Up or Referral Follow Up: Rogelio Boudreaux MD [Primary Care Provider] - 1 Week ([facility] CBC chest x-ray) - Forms/Instructions Exam - Constitutional Vitals: Period Temp Pulse Resp BP Sys/Finney Pulse Ox Last 24 Hr 96.2 F-97.9 F 64-84 18-20 107-148/55-73 86-99 Exam: Patient's alert oriented vital signs normal. Pupils react to light. Throat is clear. Neck supple no bruits. Chest is clear equal breath sounds. He has prolonged expiratory phase. Heart normal rate rhythm no murmurs. Abdomen soft nontender no masses. Extremities no clubbing cyanosis or edema. Skin turgor back to normal. Discharge Results Procedures and tests throughout hospitalization: Pending Orders 02/06/17 Occult Blood, Stool Routine 02/07/17 08:08 C. Diff Toxins A & B Routine Stool Culture Routine 02/07/17 09:10 Urine Culture Routine Labs on day of discharge: Preliminary micro results at discharge 02/07/17 09:10 Urine Culture - Preliminary Urine,Clean Catch No Growth at 24 hours. - Imaging and Cardiology Procedure: Chest x-ray: image reviewed by me (Lungs are hyperinflated but clear) DS: Provider Date of admission: 02/06/17 16:10 Primary care physician: Rogelio Boudreaux MD Attending physician on admission: Rogelio Boudreaux MD Discharging clinician: Rogelio Boudreaux MD Expected date of discharge: 02/09/17
[2017-02-09] MEDS: FLECAINIDE 100 MG TABLET PO SCH (10:04)
[2017-02-09] MEDS: MULTIVITAMIN (CENTRUM) TABLET PO SCH (10:04)
[2017-02-09] MEDS: DIGOXIN 0.125 MG TABLET PO SCH (10:04)
[2017-02-09] MEDS: ASPIRIN EC 81 MG TABLET PO SCH (10:07)
[2017-02-09] MEDS: APIXABAN 2.5 MG TABLET PO SCH (10:08)
[2017-02-09] MEDS: CETIRIZINE 10 MG TABLET PO SCH (10:08)
[2017-02-09] MEDS: PROCHLORPERAZINE 10 MG TABLET PO SCH (10:08)
[2017-02-09] MEDS: PANTOPRAZOLE 40 MG TABLET PO SCH (10:08)
[2017-02-09] MEDS: BUDESONIDE/FORMOTEROL 160-4.5 INHALER 6 GM INH SCH (10:13)
[2017-02-09 12:00] VITALS: BP 137/70
[2017-02-09] MEDS: HEPARIN LOCK FLUSH 500 UNIT/5 ML SYRINGE IV SCH (13:15)
== END 2017-02-09 13:45 | disposition home or self-care (01) | DRG 641 ==
LOC: N.2E 15:29
PROVIDERS: ADMIT Internal Medicine Pulmonary Disease; ATTEND Internal Medicine Pulmonary Disease

== ENCOUNTER 2017-02-10 09:58 | Inpatient (IN) ==
[2017-02-10] MEDS ORDERED: DICYCLOMINE 20 MG/2 ML AMP IM ONE ×2 (10:21→11:54)
[2017-02-10] MEDS ORDERED: METOCLOPRAMIDE 10 MG/2 ML VIAL IV STA (10:21)
[2017-02-10] MEDS ORDERED: PANTOPRAZOLE 40 MG VIAL IV STA (10:21)
[2017-02-10] MEDS ORDERED: ONDANSETRON 4 MG/2 ML VIAL IV STA (10:21)
[2017-02-10] MEDS ORDERED: SODIUM CHLORIDE 0.9% 2,000 ML IV STA (10:21)
[2017-02-10] MEDS ORDERED: ALBUTEROL/IPRATROPIUM 3 ML NEB RESP TX STA (10:21)
[2017-02-10] MEDS ORDERED: LEVOFLOXACIN INJ 750 MG in PREMIX 1 EACH IV STA (10:21)
[2017-02-10] MEDS ORDERED: LOPERAMIDE 2 MG CAPSULE PO STA (10:21)
[2017-02-10] MEDS ORDERED: metroNIDAZOLE INJ 500 MG in PREMIX 1 EACH IV STA (10:21)
--- NOTE | 2017-02-10 10:29 | Emergency Department Note ---
Arrival - Arrival Chief Complaint: Nausea/Vomiting/Diarrhea Stated Complaint: DIARRHEA/VOMITING/CHILLS ED Nursing Triage Note: C/o N/V/D-onset one week ago, was discharged from here yesterday for same c/o, but caregiver states he is no better. Mode of Arrival: Wheelchair Limitations: No Limitations Source: Patient Time Seen by Provider: 02/10/17 10:21 - History of Present Illness HPI Narrative: This 89-year-old white male presents 24 hours after discharge with complaints of nausea, vomiting, diarrhea, and profound weakness. The patient was originally admitted 5 days ago to the hospital for the same symptoms. During the course of his hospitalization he improved with supportive treatment and was discharged yesterday with all symptoms allegedly resolved. However upon entering his house he immediately began to have symptoms again of extreme nausea , vomiting, and diarrhea to the point of fecal incontinence. He denies chills, fever, heartburn, water brash, melena, or bright red blood per rectum. By this morning he felt profoundly weak and presents the emergency room hypotensive. In this regard he denies chest pain or shortness of breath although he has a chronic COPD patient. Currently he has a howard pallor. Onset (ago): week(s) (Patient presents 1 week post onset of symptoms) Allergies/Adverse Reactions: Allergies Allergy/AdvReac Type Severity Reaction Status Date / Time latex Allergy Intermediate ITCHING Verified 10/22/14 23:27 Cephalosporins Allergy Verified 02/06/17 16:22 meperidine [From Demerol] Allergy Verified 02/06/17 15:53 Home Medications: Home Medications Medication Instructions Recorded Confirmed Type Albuterol Neb [Proventil Neb] 0.63 mg INH Q6HR 02/06/17 02/10/17 History Apixaban [Eliquis] 2.5 mg PO BID 02/06/17 02/10/17 History Aspirin [Ecotrin] 81 mg PO DAILY 02/06/17 02/10/17 History Budesonide/Formoterol 160-4.5 2 puff INH BID 02/06/17 02/10/17 History [Symbicort 160-4.5] Cetirizine Tab [ZyrTEC Tab] 10 mg PO DAILY 02/06/17 02/10/17 History Digoxin 125 mcg PO DAILY 02/06/17 02/10/17 History Docusate Sodium [Colace] 100 mg PO QPM 02/06/17 02/10/17 History Donepezil HCl 10 mg PO DAILY 02/06/17 02/10/17 History Flecainide [Tambocor] 100 mg PO BID 02/06/17 02/10/17 History Furosemide 20 mg PO DAILY 02/06/17 02/10/17 History HYDROcodone/ACETAMIN 5-325 [[place] 1 tablet PO Q6HR PRN 02/06/17 02/10/17 History 5-325] HydrOXYzine PAMOATE CAP [Vistaril 25 mg PO QPM 02/06/17 02/10/17 History Cap] LORazepam TAB [Ativan Tab] 1 mg PO DAILY 02/06/17 02/10/17 History Multivitamin [One Daily 1 tablet PO DAILY 02/06/17 02/10/17 History Multivitamin] Omeprazole [Prilosec] 20 mg PO DAILY 02/06/17 02/10/17 History Potassium Chloride 10 meq PO DAILY 02/06/17 02/10/17 History Simvastatin [Zocor] 10 mg PO DAILY 02/06/17 02/10/17 History Theophylline ER Cap (24 Hr) 300 mg PO DAILY 02/06/17 02/10/17 History [Tor-24] Tiotropium Inhalation [Spiriva 18 mcg INH DAILY 02/06/17 02/10/17 History Handihaler] dilTIAZem HCl [Diltiazem HCl] 120 mg PO DAILY 02/06/17 02/10/17 History Prochlorperazine Tab [Compazine 10 mg PO BID PRN tablet 02/09/17 02/10/17 Rx Tab] Review of System - Review of System Constitutional: Present: as per HPI Respiratory: Present: as per HPI Cardiovascular: Present: as per HPI Gastrointestinal: Present: as per HPI Medical,Surgical,& Family Hx - Medical History Cardio: History of: Cardiac Dysrhythmia (a fib), Hypertension No history of: Aneurysm, Cerebrovascular Disease, Congenital Heart Disease, CHF, CAD, VT, Pacemaker, PVD, Valvular Heart Disease, Cardiovascular Problems Psychological: History of: Anxiety Disorders (post traumatic stress disorder) No history of: ADHD, Behavior Problems, Bipolar Disorder, Depression, Previous Suicide Attempt, Psychiatric/Substance Abuse Tx, Schizophrenia, Violent Behavior, Psychiatric Problems Neurology: No history of: Brain Aneurysm, Cerebral Hemorrhage, Cerebrovascular Accident , Cerebral Palsy, Dementia, Migraine, Multiple Sclerosis, Parkinson's Disease, Peripheral Neuropathy, Seizures, TIA, Vertigo, Neurologocal Cancer HEENT: History of: Eye Problem (cataract) No history of: Ear Problem, Dental Problems, Glaucoma, Oral Cancer, HEENT Problems Endocrine: History of: Dyslipidemia No history of: Adrenal Disease, Diabetes Mellitus (IDDM), Diabetes Mellitus ( NIDDM), Thyroid Disorder, Endocrine Cancer, Endocrine Problems Rheumatology: History of;: Rheumatological Problems No history of;: Fibromyalgia, Gout, Myasthenia Gravis, Psoriasis, Rheumatoid Arthritis, Sjogrens, Systemic Lupus Erythematosus Respiratory: History of: Bronchitis (chronic), COPD, Intubation, Pneumonia No history of: Asthma, Obstructive Sleep Apnea, Pulmonary Embolism, Pulmonary Hypertension, Lung Cancer, Respiratory Problems Renal: No history of: Renal (Kidney) Cancer, Dialysis, Renal Failure, Renal Problems Genitourinary: No history of: Bladder Problem, Kidney Stones, Prostate Problems, Recurring Urinary Tract Infections, Genitourinary Cancer, Problems Gastrointestinal: History of: GERD, Polyps, Gastrointestinal Cancer (esophageal) No history of: Bowel Obstruction, Clostridium Difficile, Crohn's Disease, Diverticulitis/ Diverticulosis, Esophageal Varices, Gastrointestinal Bleed, Hemorrhoids, Hematochezia, Hepatitis, Liver Problems, Pancreatitis, Ulcerative Colitis, GI Problems Musculoskeletal: History of: Musculoskeletal Problems (right knee injury in [place] 1950) No history of: Amputation, Back/Neck Problems, Degenerative Disk Disease, Herniated Disk, Osteoporosis, Musculoskeletal Cancer Hematology: No history of: Anemia, Blood Transfusion Reaction, Bleeding Problems, Clotting Problems, Sickle Cell Disease, Hematologic Cancer, Blood Disorders Reproductive: No histroy: Penile Disorder, Sexually Transmitted Disease, Reproductive Cancer, Reproductive Problems Other: History of: Cancer (ESOPHAGEAL) No history of: Anesthesia Reactions, Anaphylaxis, Eczema, HIV, Malignant Hyperthermia, MRSA, Vancomycin-Resistant Enterococci, Skin Problems, Miscellaneous Medical Problems - Surgical History Cardiac Surgeries: Sugical HX of: Femoral-Popliteal Bypass Graft, Vascular Access Devices (mediport) Patient Denies: Cardiac Catheterization, Cardiac Surgery, Carotid Endarterectomy, Internal Defibrillator Thoracic Surgeries: Patient denies;: Kidney (Renal Surgery), Lithotripsy, Nephrectomy, Organ Transplant, Lobectomy Neurologic Surgeries: Patient denies: Brain Aneurysm, Cerebral Hemorrhage, Neurologic Surgery HEENT Surgeries: Surgical HX of: Eye Surgery (cataract), Tonsilectomy & Adenoidectomy Patient denies: Carotid Endarterectomy, Thyroid Surgery Abdominal Surgeries: Surgical HX of: Abdominal Surgery, Appendectomy, Cholecystectomy, Colonoscopy, EGD Patient denies: Gastric Bypass Surgery, Hernia Repair, Splenectomy Reproductive Surgeries: Patient denies;: Breast Surgery, Cystoscopy, Genitourinary Surgery, Prostate Surgery, Vasectomy Orthopedic Surgeries: Surgical HX of;: Implanted Devices (MEDIPORT) Patient denies;: Orthopedic Surgery, Spinal Surgery, Total Hip Replacement, Total Knee Replacement - Family History Family History: Reports;: Family Cancer (SISTER), Family Heart Disease (dad), Family Stroke (mom) Denies;: Family Anesthesia Reaction, Family Diabetes, Family Hypertension, Family Psychiatric Problems - Social History Smoking Status: Former smoker Frequency of Alcohol Use: None Type of Drug Use: None Exam Physical Examination: GENERAL: Chronically ill-appearing white male with howard pallor and mild distress. HEENT: Normocephalic. No trauma. Moist mucous membranes. EOMI. PERRLA. ENT NML NECK: Supple. No adenopathy. CARDIAC: Regular. No murmurs. Heart rate 95 CHEST: Clear to auscultation. No respiratory distress. O2 sat 94% ABDOMEN: Soft. Diffusely tender, hyperactive bowel sounds. EXTREMITIES: No trauma. Normal ROM. No pedal edema. SKIN: No diaphoresis. No rash. Howard pallor NEURO: Alert. Neuro intact no focal deficits. Vital Signs: Vital Signs Temperature 98.2 F 02/10/17 10:10 Pulse Rate 85 02/10/17 10:57 Respiratory Rate 18 02/10/17 10:57 Blood Pressure 74/39 02/10/17 10:10 O2 Sat by Pulse Oximetry 95 02/10/17 10:57 Course - Reevaluation(s) Reevaluation #1: Discussed with patient and perioperative assistant the need for hospitalization to resolve the situation. - Consultations Consultation #1: Discussed with hospitalist service who will admit for further evaluation treatment. Results - Labs CBC & BMP: 02/10/17 11:18 02/10/17 11:18 Labs: I have reviewed the laboratory noted the bump in white blood cell count. - Impressions EKG: Atrial fibrillation with left axis deviation and right bundle branch block diffuse nonspecific ST changes with no acute injury pattern noted. - Diagnostic Findings Procedure: CT Abdomen and Pelvis: image reviewed by me, report reviewed by me ( Scattered diverticula, evidence of prior intervention and ongoing athero- sclerotic disease of the lower extremity arterial tree but no acute pathology) Disposition Clinical Impression: Chronic diarrhea, Hypotension Case discussed with: patient Condition: Guarded Time of Disposition: 13:54
[2017-02-10] MEDS ORDERED: methylPREDNISolone SOD SUC 125 MG/2 ML VIAL IV STA (10:31)
[2017-02-10 11:37] LABS: Basophils # 0.1 10*3/uL (0.0-0.2); Basophils % 0.4 % (0.0-0.8); Eosinophils # 0.2 10*3/uL (0.0-0.87); Eosinophils % 1.4 % (0.00-10.9); Hematocrit 30.1 VOL% (42.0-52.0); Hemoglobin 10.1 GM/DL (14.0-18.0); Immature Granulocytes % 0.6 %; Lymphocytes # 1.7 10*3/uL (1.4-4.0); Lymphocytes % 10.5 % (21.2-54.2); Mean Corpuscular HGB Conc 33.6 GM/DL (32-36); Mean Corpuscular Hemoglobin 28 PG (27-34); Mean Corpuscular Volume 82.9 FL (87-102); Mean Platelet Volume 8.5 FL (9.6-12.0); Monocytes # 1.1 10*3/uL (0.11-0.8); Monocytes % 6.7 % (1.7-12.7); Neutrophils # 12.9 10*3/uL (1.4-7.4); Neutrophils % 80.4 % (38.7-73.9); Platelet Count 320 T/CUMM (130-400); Red Blood Count 3.63 MC/CUMM (3.8-5.5); Red Cell Distribution Width 15.1 % (9.3-17.3)
[2017-02-10] MEDS ORDERED: LOPERAMIDE 2 MG CAPSULE ONE (11:53)
[2017-02-10] MEDS ORDERED: PANTOPRAZOLE 40 MG VIAL IV ONE (11:53)
[2017-02-10] MEDS ORDERED: METOCLOPRAMIDE 10 MG/2 ML VIAL ONE (11:53)
[2017-02-10] MEDS ORDERED: LEVOFLOXACIN INJ 150 ML IV ONE (11:53)
[2017-02-10] MEDS ORDERED: ONDANSETRON 4 MG/2 ML VIAL ONE (11:54)
[2017-02-10] MEDS ORDERED: metroNIDAZOLE 500 MG/100 ML PREMIX IV ONE (11:54)
[2017-02-10] MEDS ORDERED: methylPREDNISolone SOD SUC 125 MG/2 ML VIAL ONE (11:54)
[2017-02-10 12:10] LABS: Alanine Aminotransferase 22 U/L (16-61); Albumin 2.8 G/DL (3.4-5.0); Alkaline Phosphatase 76 U/L (45-117); Amylase 32 U/L (25-115); Aspartate Amino Transferase 27 U/L (0-37); Blood Urea Nitrogen 23 MG/DL (7-18); Calcium 7.8 MG/DL (8.5-10.1); Glucose 99 MG/DL (74-106); Osmolality,Calculated 276.8 MOS/KG (273-304); Potassium 3.7 MMOL/L (3.5-5.1); Sodium 137 MMOL/L (136-145); Total Protein 5.4 G/DL (6.4-8.3); Troponin I Only 0.024 NG/ML (0.00-0.045)
--- NOTE | 2017-02-10 12:53 | CT Report ---
Exam: CT abdomen and pelvis with intravenous contrast Exam date: 02/10/2017 at 1216 hours Clinical History: 89 year old male, pain, with chronic diarrhea Technique: Axial computed tomography images of the abdomen and pelvis with intravenous contrast. All CT scans at this facility use one or more dose reduction techniques. Automated exposure control, MA/KV adjustment per patient size (including targeted exam Square dose is matched to indication) or iterative reconstruction technique Contrast: 100 mL of Omnipaque 350 administered intravenously Comparison: No relevant prior studies Findings: Lower thorax: Small right and trace left pleural effusions Abdomen: Liver: Scattered subcentimeter hypodensities throughout the liver parenchyma likely representing benign cyst, too small to characterize. Gallbladder and bile ducts: Gallbladder is surgically absent. No ductal dilatation. Pancreas: Pancreas is normal. Spleen: Spleen is normal. Adrenals: No adrenal mass. Kidneys and ureters: Punctate left and small right renal cyst.. Kidneys are otherwise normal in morphology, size and enhancement. No hydronephrosis. No ureteral calculus. Stomach and bowel: Mid to distal colonic bowel loops are unopacified with enteric contrast limiting evaluation. Multiple scattered diverticula along the distal transverse, descending and sigmoid colon. No associated wall thickening or inflammatory changes. No evidence of acute gastritis, colitis or enteritis. No bowel obstruction. Appendix: Non visualized. No secondary signs to suggest appendicitis. Pelvis: Bladder: Unremarkable Reproductive: Prostate gland is unremarkable. Abdomen and pelvis: Intraperitoneal space: No pneumoperitoneum. Small amount of free fluid within the upper quadrants and layering within the pelvis Bones/joints: No acute osseous abnormality right hip arthrosis with degenerative changes throughout the pelvis and visualized thoracolumbar spine. Soft tissues: No mass Vasculature: No aortic aneurysm. Iliofemoral bypass appears patent. Extensive plaquing along the aorta and branch vessels with prior occlusion of the proximal left common iliac artery at the bifurcation. Lymph nodes: Nonspecific shotty mesenteric, inguinal and retroperitoneal lymph nodes Impression: 1. Diverticulosis coli 2. Bilateral pleural effusions with small volume ascites 3. 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 Other findings as discussed above PROCEDURE INTERPRETED AT [facility] DEPARTMENT OF RADIOLOGY Final Report Signed by: Haresh Howard
--- NOTE | 2017-02-10 13:12 | EKG Report ---
Stationary ECG Study [facility] ER Test Date: 02/10/2017 1:10:22 PM Pat Name: JANE ALFARO Department: Room: Gender: M Bus Mechanic: : [id number] Requested by: Javad Acosta Order Number: [id number] Reading MD: RODERICK GASCA Intervals [place] Rate: 83 P: 999 SC: 0 QRS: -73 QRSD: 162 T: 64 QT: 426 QTc: 466 Interpretive Statements NORMAL SINUS RHYTHM MARKED LEFT AXIS DEVIATION RIGHT BUNDLE BRANCH BLOCK Electronically Signed On 02-10-17 14:08:56 CDT by RODERICK GASCA [email or web address]
--- NOTE | 2017-02-10 13:28 | XRay Report ---
Portable chest February 10, 2017 Indication: Shortness of breath Comparison images dated February 06, 2017 Findings: Cardiomediastinal contours are within normal limits. Chemotherapy port is unchanged in position. Lungs are clear bilaterally. Plaquing again noted along the arch. No acute osseous abnormalities. Impression: No acute cardiopulmonary findings PROCEDURE INTERPRETED AT [facility] DEPARTMENT OF RADIOLOGY Final Report Signed by: Haresh Howard
--- NOTE | 2017-02-10 15:40 | Hospitalist History & Physical ---
Assessment and Plan - Time spent with patient Time spent with patient: Greater than 30 minutes (1) Nausea vomiting and diarrhea Status: Resolved Assessment and plan: 89-year-old white female who was recently discharged 24 hours ago after hospitalization for similar complaints. Presented to the ED today with persistent nausea, vomiting diarrhea. Patient was found to be hypotensive on admission with generalized weakness. Patient will be admitted for further evaluation and treatment of the hospital medicine services. Will continue IV fluids and empiric antibiotics obtain blood cultures 2. Stool cultures. Current Visit: No (2) COPD (chronic obstructive pulmonary disease) Status: Chronic Current Visit: No (3) History of esophageal cancer Status: Chronic Current Visit: No (4) Chronic atrial fibrillation Status: Chronic Assessment and plan: Patient is under chronic anticoagulation for atrial fibrillation with Eliquis. Current Visit: No History of Present Illness Chief complaint: Nausea/vomiting/diarrhea History of present illness: Mr. Ambrosio is a 89 year old white male with a past medical history significant for hypertension, COPD, chronic bronchitis, atrial fibrillation who presents to the ED today 24 hours after discharge with complaints of nausea, vomiting, diarrhea and profound weakness. The patient was recently admitted to Dr. Boudreaux for similar complaints earlier this week. He was treated with supportive care and thought to have the symptoms resolved at the time of discharge. Patient reports that he almost immediately began having recurrent bouts of nausea, vomiting and diarrhea overnight. Patient denies any abrupt change in diet. At this time, he feels he is simply too weak to be at home and feels ill. Patient was hypotensive with blood pressure of 74/39 on admission however after IV fluid bolus his pressure has normalized and is now 125/51. On exam, the patient is chronically ill-appearing however he is in no acute medical distress. Patient confirms generalized weakness he otherwise denies headache, chills, fever, chest pain, shortness of breath, palpitations, syncope , lower extremity edema. Lab work reveals WBC 16.0, hemoglobin 10.1, hematocrit 30.1, platelets 320, sodium 137, potassium 3.7, BUN 23, creatinine 1.00, serum glucose 99. CT of the abdomen and pelvis is significant for diverticulosis coli, bilateral pleural effusions with small volume ascites. This case has been discussed with Dr. Briceno, ER physician, and Dr. Garcia, admitting physician, and the patient will be admitted to the hospital medicine service for further evaluation and treatment. CODE STATUS was discussed; patient is a full code. Home medications have been reviewed and reconciled. Of note, the patient feels he is to be at home alone and is not opposed to the idea of temporary residential/swing bed facility placement for rehabilitation and assistance with ADLs. Home Medications Medication Instructions Recorded Confirmed Type Albuterol Neb [Proventil Neb] 0.63 mg INH Q6HR 02/06/17 02/10/17 History Apixaban [Eliquis] 2.5 mg PO BID 02/06/17 02/10/17 History Aspirin [Ecotrin] 81 mg PO DAILY 02/06/17 02/10/17 History Budesonide/Formoterol 160-4.5 2 puff INH BID 02/06/17 02/10/17 History [Symbicort 160-4.5] Cetirizine Tab [ZyrTEC Tab] 10 mg PO DAILY 02/06/17 02/10/17 History Digoxin 125 mcg PO DAILY 02/06/17 02/10/17 History Docusate Sodium [Colace] 100 mg PO QPM 02/06/17 02/10/17 History Donepezil HCl 10 mg PO DAILY 02/06/17 02/10/17 History Flecainide [Tambocor] 100 mg PO BID 02/06/17 02/10/17 History Furosemide 20 mg PO DAILY 02/06/17 02/10/17 History HYDROcodone/ACETAMIN 5-325 [[place] 1 tablet PO Q6HR PRN 02/06/17 02/10/17 History 5-325] HydrOXYzine PAMOATE CAP [Vistaril 25 mg PO QPM 02/06/17 02/10/17 History Cap] LORazepam TAB [Ativan Tab] 1 mg PO DAILY 02/06/17 02/10/17 History Multivitamin [One Daily 1 tablet PO DAILY 02/06/17 02/10/17 History Multivitamin] Omeprazole [Prilosec] 20 mg PO DAILY 02/06/17 02/10/17 History Potassium Chloride 10 meq PO DAILY 02/06/17 02/10/17 History Simvastatin [Zocor] 10 mg PO DAILY 02/06/17 02/10/17 History Theophylline ER Cap (24 Hr) 300 mg PO DAILY 02/06/17 02/10/17 History [Tor-24] Tiotropium Inhalation [Spiriva 18 mcg INH DAILY 02/06/17 02/10/17 History Handihaler] dilTIAZem HCl [Diltiazem HCl] 120 mg PO DAILY 02/06/17 02/10/17 History Prochlorperazine Tab [Compazine 10 mg PO BID PRN tablet 02/09/17 02/10/17 Rx Tab] Allergies Allergy/AdvReac Type Severity Reaction Status Date / Time latex Allergy Intermediate ITCHING Verified 10/22/14 23:27 Cephalosporins Allergy Verified 02/06/17 16:22 meperidine [From Demerol] Allergy Verified 02/06/17 15:53 Medical,Surgical,& Family Hx - Medical History Cardio: History of: Cardiac Dysrhythmia (a fib), Hypertension No history of: Aneurysm, Cerebrovascular Disease, Congenital Heart Disease, CHF, CAD, ID, Pacemaker, PVD, Valvular Heart Disease, Cardiovascular Problems Psychological: History of: Anxiety Disorders (post traumatic stress disorder) No history of: ADHD, Behavior Problems, Bipolar Disorder, Depression, Previous Suicide Attempt, Psychiatric/Substance Abuse Tx, Schizophrenia, Violent Behavior, Psychiatric Problems Neurology: No history of: Brain Aneurysm, Cerebral Hemorrhage, Cerebrovascular Accident , Cerebral Palsy, Dementia, Migraine, Multiple Sclerosis, Parkinson's Disease, Peripheral Neuropathy, Seizures, TIA, Vertigo, Neurologocal Cancer HEENT: History of: Eye Problem (cataract) No history of: Ear Problem, Dental Problems, Glaucoma, Oral Cancer, HEENT Problems Endocrine: History of: Dyslipidemia No history of: Adrenal Disease, Diabetes Mellitus (IDDM), Diabetes Mellitus ( NIDDM), Thyroid Disorder, Endocrine Cancer, Endocrine Problems Rheumatology: History of;: Rheumatological Problems No history of;: Fibromyalgia, Gout, Myasthenia Gravis, Psoriasis, Rheumatoid Arthritis, Sjogrens, Systemic Lupus Erythematosus Respiratory: History of: Bronchitis (chronic), COPD, Intubation, Pneumonia No history of: Asthma, Obstructive Sleep Apnea, Pulmonary Embolism, Pulmonary Hypertension, Lung Cancer, Respiratory Problems Renal: No history of: Renal (Kidney) Cancer, Dialysis, Renal Failure, Renal Problems Genitourinary: No history of: Bladder Problem, Kidney Stones, Prostate Problems, Recurring Urinary Tract Infections, Genitourinary Cancer, Problems Gastrointestinal: History of: GERD, Polyps, Gastrointestinal Cancer (esophageal) No history of: Bowel Obstruction, Clostridium Difficile, Crohn's Disease, Diverticulitis/ Diverticulosis, Esophageal Varices, Gastrointestinal Bleed, Hemorrhoids, Hematochezia, Hepatitis, Liver Problems, Pancreatitis, Ulcerative Colitis, GI Problems Musculoskeletal: History of: Musculoskeletal Problems (right knee injury in [place] 1950) No history of: Amputation, Back/Neck Problems, Degenerative Disk Disease, Herniated Disk, Osteoporosis, Musculoskeletal Cancer Hematology: No history of: Anemia, Blood Transfusion Reaction, Bleeding Problems, Clotting Problems, Sickle Cell Disease, Hematologic Cancer, Blood Disorders Reproductive: No histroy: Penile Disorder, Sexually Transmitted Disease, Reproductive Cancer, Reproductive Problems Other: History of: Cancer (ESOPHAGEAL) No history of: Anesthesia Reactions, Anaphylaxis, Eczema, HIV, Malignant Hyperthermia, MRSA, Vancomycin-Resistant Enterococci, Skin Problems, Miscellaneous Medical Problems - Surgical History Cardiac Surgeries: Sugical HX of: Femoral-Popliteal Bypass Graft, Vascular Access Devices (mediport) Patient Denies: Cardiac Catheterization, Cardiac Surgery, Carotid Endarterectomy, Internal Defibrillator Thoracic Surgeries: Patient denies;: Kidney (Renal Surgery), Lithotripsy, Nephrectomy, Organ Transplant, Lobectomy Neurologic Surgeries: Patient denies: Brain Aneurysm, Cerebral Hemorrhage, Neurologic Surgery HEENT Surgeries: Surgical HX of: Eye Surgery (cataract), Tonsilectomy & Adenoidectomy Patient denies: Carotid Endarterectomy, Thyroid Surgery Abdominal Surgeries: Surgical HX of: Abdominal Surgery, Appendectomy, Cholecystectomy, Colonoscopy, EGD Patient denies: Gastric Bypass Surgery, Hernia Repair, Splenectomy Reproductive Surgeries: Patient denies;: Breast Surgery, Cystoscopy, Genitourinary Surgery, Prostate Surgery, Vasectomy Orthopedic Surgeries: Surgical HX of;: Implanted Devices (MEDIPORT) Patient denies;: Orthopedic Surgery, Spinal Surgery, Total Hip Replacement, Total Knee Replacement - Family History Family History: Reports;: Family Cancer (SISTER), Family Heart Disease (dad), Family Stroke (mom) Denies;: Family Anesthesia Reaction, Family Diabetes, Family Hypertension, Family Psychiatric Problems - Social History Smoking Status: Former smoker Frequency of Alcohol Use: None Type of Drug Use: None Marital Status: Lives With:: Alone Functional capacity: uses cane/walker 12 point system: reviewed and no additional remarkable complaints except as stated Exam - Constitutional Vitals: Period Temp Pulse Resp BP Sys/Finney Pulse Ox Last 24 Hr 98.2 F 72-95 17-18 74-180/39-94 94-97 Exam: General appearance: Pale, chronically ill-appearing, normal weight, no acute distress - Head Head exam: Present: normocephalic, atraumatic - Eye Eye exam: Present: EOMI. Absent: conjunctival injection, nystagmus Pupils: Present: AMOR, normal accommodation - ENT ENT exam: Present: normal exam, normal external ear exam - Neck Neck exam: Present: normal inspection. Absent: lymphadenopathy, tenderness, thyromegaly - Respiratory Respiratory exam: Present: clear to auscultation bilaterally. Absent: rales, rhonchi, wheezes - Cardiovascular Cardiovascular exam: Present: regular rate and rhythm. Absent: carotid bruit, gallop, rubs - GI/Abdominal GI/Abdominal exam: Present: normal bowel sounds. Absent: ascites, distended, mass - Extremities Exam Extremities exam: Present: normal inspection, normal capillary refill. Absent: edema - Back Exam Back exam: Absent: CVA tenderness (L), CVA tenderness (R) - Neurological Exam Neurological exam: Present: alert, oriented X3, CN II-XII intact, reflexes normal - Psychiatric Psychiatric exam: Present: normal affect, normal mood - Skin Skin exam: Present: normal color, warm, dry Results - Labs CBC & BMP: 02/10/17 11:18 02/10/17 11:18 Lab Results: I have reviewed the past 24 hour labs - Diagnostic Findings Procedure: Chest x-ray: image reviewed by me, report reviewed by me ( Unremarkable), CT Abdomen and Pelvis: image reviewed by me, report reviewed by me (Diverticulosis)
[2017-02-10] MEDS ORDERED: LEVOFLOXACIN INJ 750 MG in PREMIX 1 EACH IV SCH (16:30)
[2017-02-10] MEDS: SODIUM CHLORIDE 0.9% 1,000 ML IV SCH (17:27)
[2017-02-10] MEDS: metroNIDAZOLE INJ 500 MG in PREMIX 1 EACH IV SCH ×2 (18:50→23:41)
[2017-02-10] MEDS: APIXABAN 2.5 MG TABLET PO SCH (21:24)
[2017-02-11 03:31] LABS: Basophils % 0.1 % (0.0-0.8); Hematocrit 24.9 VOL% (42.0-52.0); Hemoglobin 8.3 GM/DL (14.0-18.0); Immature Granulocytes % 0.3 %; Immature Granulocytes Absolute 0.03 #; Lymphocytes # 0.9 10*3/uL (1.4-4.0); Lymphocytes % 9.8 % (21.2-54.2); Mean Corpuscular HGB Conc 33.3 GM/DL (32-36); Mean Corpuscular Hemoglobin 28 PG (27-34); Mean Corpuscular Volume 84.1 FL (87-102); Mean Platelet Volume 9.2 FL (9.6-12.0); Monocytes # 0.7 10*3/uL (0.11-0.8); Monocytes % 7.9 % (1.7-12.7); Neutrophils # 7.2 10*3/uL (1.4-7.4); Neutrophils % 81.9 % (38.7-73.9); Platelet Count 295 T/CUMM (130-400); Red Blood Count 2.96 MC/CUMM (3.8-5.5); Red Cell Distribution Width 15.5 % (9.3-17.3); White Blood Count 8.9 T/CUMM (4-12)
[2017-02-11 03:58] LABS: Calcium 7.2 MG/DL (8.5-10.1); Osmolality,Calculated 285.1 MOS/KG (273-304); Potassium 4.3 MMOL/L (3.5-5.1)
[2017-02-11] MEDS: metroNIDAZOLE INJ 500 MG in PREMIX 1 EACH IV SCH ×3 (06:10→17:37)
[2017-02-11] MEDS: PANTOPRAZOLE 40 MG TABLET PO SCH (10:13)
--- NOTE | 2017-02-11 13:27 | Hospitalist Progress Note ---
Hospitalist: Subjective Interval history: Pt states no further diarrhea. Tolerating full liquid diet. No cp or SOB. No fever. No abd pain. Exam - Constitutional Vitals: Period Temp Pulse Resp BP Sys/Finney Pulse Ox Last 24 Hr 96.4 F-98.6 F 64-84 18-20 89-125/39-74 93-99 Exam: GEN: Awake, alert and oriented x 3, sitting on bed in NAD. HEENT: No thrush. Clear sclera CV: RRR nl S1/ S2. No M/R/G LUNGS: CTAB nonlabored, diminished ABD: Soft, NT, ND, +BS EXT: Warm. No clubbing, cyanosis or edema. SARAVIA. Results - Labs CBC & BMP: 02/11/17 02:49 02/11/17 02:49 - Impressions 89-year-old white female who was recently discharged 24 hours ago prior to representing to the hospital with similar complaints with hypotension and generalized weakness. (1) Nausea, vomiting, and diarrhea in a patient with known diverticulosis Status: active Assessment and plan: - C diff stool negative - FOBT positive. GI to see. - Nguyen stain is negative - Stool culture pending - Norovirus pending - Monitor output - F/U Blood cultures 2. - On empiric Flagyl. Probably could consider discontinuing based on CT scan - Holding Colace - Cont liquid diet today per pt request. Consider soft diet in am if tolerates diet today. Current Visit: Yes (2) COPD (chronic obstructive pulmonary disease) Status: Chronic Current Visit: No - resume home meds (3) History of esophageal cancer Status: Chronic Current Visit: No - F/U with oncology outpt (4) Chronic atrial fibrillation Status: Chronic Assessment and plan: cont Eliquis. Holding diltiazem, digoxin, Flecainide. Resume when clinically appropriate. Current Visit: No (5) HTN - BP low at this time. DVT prophylaxis- Eliquis I will be away several days. One of my associates will follow in my absence.
[2017-02-11] MEDS: APIXABAN 2.5 MG TABLET PO SCH ×2 (13:31→21:12)
[2017-02-11] MEDS: SODIUM CHLORIDE 0.9% 1,000 ML IV SCH ×2 (14:31→17:36)
[2017-02-11] MEDS ORDERED: IPRATROPIUM 500 MCG/2.5 ML NEB RESP TX SCH (15:00)
[2017-02-11] MEDS ORDERED: ALBUTEROL 0.63 MG/3 ML NEB RESP TX SCH (19:00)
[2017-02-11] MEDS: ALBUTEROL/IPRATROPIUM 3 ML NEB RESP TX SCH (19:35)
[2017-02-11] MEDS: BUDESONIDE/FORMOTEROL 160-4.5 INHALER 6 GM INH SCH (21:12)
[2017-02-12] MEDS: ALBUTEROL/IPRATROPIUM 3 ML NEB RESP TX SCH ×4 (00:10→19:49)
[2017-02-12] MEDS: metroNIDAZOLE INJ 500 MG in PREMIX 1 EACH IV SCH ×4 (00:23→23:24)
[2017-02-12] MEDS: SODIUM CHLORIDE 0.9% 1,000 ML IV SCH ×2 (03:20→17:02)
[2017-02-12 04:31] LABS: Basophils % 0.4 % (0.0-0.8); Eosinophils # 0.3 10*3/uL (0.0-0.87); Eosinophils % 3.8 % (0.00-10.9); Hematocrit 23.3 VOL% (42.0-52.0); Hemoglobin 7.7 GM/DL (14.0-18.0); Immature Granulocytes % 0.3 %; Immature Granulocytes Absolute 0.03 #; Lymphocytes # 1.9 10*3/uL (1.4-4.0); Lymphocytes % 21.7 % (21.2-54.2); Mean Corpuscular Hemoglobin 28 PG (27-34); Mean Corpuscular Volume 84.4 FL (87-102); Mean Platelet Volume 8.8 FL (9.6-12.0); Monocytes # 0.8 10*3/uL (0.11-0.8); Neutrophils # 5.8 10*3/uL (1.4-7.4); Neutrophils % 64.8 % (38.7-73.9); Platelet Count 270 T/CUMM (130-400); Red Blood Count 2.76 MC/CUMM (3.8-5.5); Red Cell Distribution Width 15.4 % (9.3-17.3); White Blood Count 8.9 T/CUMM (4-12)
[2017-02-12 04:58] LABS: Calcium 6.9 MG/DL (8.5-10.1); Osmolality,Calculated 285.8 MOS/KG (273-304); Potassium 3.2 MMOL/L (3.5-5.1)
[2017-02-12] MEDS: APIXABAN 2.5 MG TABLET PO SCH ×2 (08:28→20:39)
[2017-02-12] MEDS: BUDESONIDE/FORMOTEROL 160-4.5 INHALER 6 GM INH SCH (08:28)
[2017-02-12] MEDS: CETIRIZINE 10 MG TABLET PO SCH (08:28)
[2017-02-12] MEDS: ASPIRIN EC 81 MG TABLET PO SCH (08:28)
[2017-02-12] MEDS: PANTOPRAZOLE 40 MG TABLET PO SCH (08:28)
[2017-02-12] MEDS: DONEPEZIL 10 MG TABLET PO SCH (08:28)
[2017-02-12] MEDS ORDERED: NON-FORMULARY MEDICATION (Omeprazole [Prilosec] 20 MG) PO SCH (09:00)
--- NOTE | 2017-02-12 11:16 | Hospitalist Progress Note ---
Assessment and Plan (1) Diarrhea Status: Resolved Assessment and plan: The patient was moved the hospital with watery stools weakness and dehydration. The patient is improving with supportive care. Will recheck electrolytes and CBC tomorrow. The patient is nearing maximum medical benefit from hospitalization. Current Visit: No (2) Hypotension Status: Resolved Current Visit: No (3) COPD (chronic obstructive pulmonary disease) Status: Chronic Current Visit: No (4) Esophageal carcinoma Status: Chronic Current Visit: No Hospitalist: Subjective Interval history: The patient was admitted to hospital with generalized weakness and recurrence of diarrhea. The patient is improving on hydration and supportive care. The patient still feels too weak to care for himself at home. The patient does not complain of shortness of breath or angina today. The patient states that he has had one watery stool since admission to the hospital. He still has colicky abdominal pain but is better than at the time of admission. Exam - Constitutional Vitals: Period Temp Pulse Resp BP Sys/Finney Pulse Ox Last 24 Hr 97.0 F-98.7 F 59-78 16-20 111-129/55-74 94-99 General appearance: no acute distress - Eye Pupils: Present: AMOR - Respiratory Respiratory exam: Present: prolonged expiratory phase - Cardiovascular Cardiovascular exam: Present: regular rate and rhythm - GI/Abdominal GI/Abdominal exam: Present: normal bowel sounds Results - Labs CBC & BMP: 02/12/17 04:00 02/12/17 04:00 Lab Results: I have reviewed the past 24 hour labs
--- NOTE | 2017-02-12 15:27 | Gastrointestinal Consult Note ---
Assessment and Plan - Time spent with patient Time spent with patient: Greater than 30 minutes (1) Anemia Status: Acute Current Visit: Yes (2) Diarrhea Status: Resolved Current Visit: No (3) Dehydration Status: Resolved Current Visit: No (4) Hypotension Status: Resolved Current Visit: No (5) History of esophageal cancer Status: Chronic Assessment and plan: PLEASE NOTE -- automatic citation of patient information is unavoidable in this electronic note. I have made a reasonable effort to review the information cited , but it is not a part of my evaluation, impression, or recommendation unless specifically discussed in the dictated text that follows. As well, voice recognition software was used in the creation of this clinical note. Reasonable effort was made to identify and correct gross errors. Despite proofreading, errors in monument mason may be present, including nonsense verbiage at times. If you encounter such an error, please contact me at [phone] for discussion and correction. -- Dr. Ramírez Chief complaint/Consult Question: acute, severe diarrhea with nausea and vomiting Consult requested by: Radha History of present illness: This is a new patient, Smith Ambrosio, 89-year-old man who lives by himself who has had recurrent admission for non-resolving acute onset nausea vomiting and diarrhea for 11 days. Notes report he was previously treated with supportive care and thought to have had symptom resolution at time of discharge. Patient reports that the morning after returning home, he developed recurrence of severe midepigastric abdominal pain, followed by emesis of gastric fluid, followed by severe bilious, nonbloody, emesis, followed nearly immediately by recurrent onset of diarrhea, associated with stool incontinence. Denies melena, hematochezia, but states 6-7 months ago he was in the hospital and put on Eliquis, which he states he was not taking at home, and had significant black tarry stool until he stopped the Eliquis. He was convinced "that he was bleeding". Diarrhea associated with stool incontinence, extreme weakness, lightheadedness, fatigue. Denies fevers. Nothing has made this better or worse, but symptoms improved with hydration during last hospitalization. Patient was hypotensive with blood pressure 74/39 on admission, with normalization after IV fluid bolus. Flagyl was initiated. Patient was diagnosed with esophageal cancer approximately 4 years ago per report, with symptoms of dysphagia. Underwent significant chemo and radiation for curative treatment, but has not had an EGD in the last 2 years he states. States during his workup at [facility], they also told him he had "a small colon cancer, that they did not need to remove, and would not likely cause him any problems due to his old age." Records are being requested. Patient lives alone, has a house helper who comes in every day to cook his meals. Never eats leftovers. Otherwise does not get out of the house. No pets. Drinks city water at home. Onset of abdominal pain happened before emesis and diarrhea. Prior abdominal surgeries include PEG tube placement and removal, as well as lower abdominal vascular femoral bypass. States he is only on baby aspirin at home, not on Eliquis, although they restarted again during his hospitalization. Otherwise does not take any NSAIDs at home. States he has not had a repeat colonoscopy since his diagnosis of "colon cancer" about 4 years ago. States overall he is feeling better today, complete resolution of abdominal pain , no nausea or emesis,, only 2 small bowel movements in the last 24 hours, but still feels very weak. Stool was overtly Hemoccult positive on testing, but otherwise brown. GI review of systems included: heartburn, regurgitation, early satiety, dysphagia, odynophagia, abdominal pain, nausea, vomiting, hematemesis, weight loss, weight gain, fever, chills, fatigue, decreased appetite, diarrhea, constipation, hematochezia, melena, bloating, malodorous flatus, anal pain, or NSAID use, and was negative except as noted above. REVIEW OF SYSTEMS: Complete other review of systems negative except as noted in the HPI. Outpatient medications: Personally reviewed Colace 100 mg p.o. every afternoon-did not take upon returning home Aspirin 81 mg daily Eliquis 2.5 mg p.o. twice daily-NOT TAKING AT HOME, REPORTS NOT BEEN TAKING THIS FOR 5-6 MO Digoxin 125 mcg p.o. daily Zyrtec 10 mg p.o. daily Symbicort twice daily Albuterol as needed Diltiazem 120 mg p.o. daily Spiriva daily Theophylline 300 mg p.o. daily Zocor 10 mg p.o. daily next line Compazine 10 mg p.o. twice daily as needed Potassium 10 mEq daily Prilosec 20 mg p.o. daily Multivitamin daily Ativan 1 mg p.o. daily Vistaril 25 mg p.o. every afternoon [place] 5/325 every 6 hours as needed Lasix 20 mg p.o. daily Flecainide 100 mg p.o. daily Donepezil 10 mg p.o. daily Inpatient medications: Personally reviewed Metronidazole 500 mg every 6 hours Eliquis 2.5 mg p.o. twice daily Aspirin 81 mg p.o. daily Protonix 40 mg p.o. daily Normal saline at 100 mls/ hour Symbicort, Zyrtec, Aricept, [place], Zofran Past Medical History: Reviewed with patient Esophageal cancer, patient unclear of stage, s/p chemo and radiation, patient states for curative intent, and told he was cured. Last EGD at least 2 years ago per patient report. Question of colon canceruntreated, unresected? From approximately 2012, or same time esophageal cancer was found. COPD PE? PTSD Chronic A. fib Hypertension Social history: neg tobacco. neg Alcohol Family history: Mother with stroke age 97 Father with CHF and at 75 Sister with eye cancer No known GI related disease or malignancies Ins and outs: 4 documented urinations yesterday, one bowel movement. Vital signs: T-max 97.5, blood pressure 120s over 60s-70s, heart rate 59-60, satting 97% on room air on 2 L oxygen last night and this morning. PHYSICAL EXAMINATION: CONSTITUTIONAL: Vital signs reviewed as documented above. In no acute distress. Nontoxic-appearing. EYES: Anicteric conjunctiva. Extra-ocular movements are intact and symmetric. EARS: Able to hear speech at conversational volume level, no external trauma/ masses. MOUTH: No oral/mouth lesions or ulcers. NECK: No masses or crepitus. Thyroid is of normal size and symmetric. HEART: Regular rate, regular rhythm LUNGS: No increased work of breathing or accessory muscle use. GI/ABDOMEN: Nonobese abdomen, soft, nontender to palpation, no rebound tenderness, nondistended, no rigidity. No palpable mass. No appreciable hepatosplenomegaly. SKIN: No rash on face, arms, or hands. No palpable lesions MUSCULOSKELETAL: Normal gait. Muscle tone appears normal without any abnormal movements. PSYCH: Normal affect. Alert and oriented to person, place, and time. Laboratory: Personally reviewed White blood cell count 16 at admission, 8.9 today, hemoglobin 10.1 at admission , 7.7 today, platelets 320 at admission, 270 today. Most consistent with hemoconcentration upon admission which be consistent with hypotension. MCV 84 ESR elevated at 30 Chemistrysodium 144, potassium 3.2, chloride 112, carbon dioxide 26, BUN 15, creatinine 0.9, anion gap 9.2, glucose 88 Osmolality 285.8 Calcium 6.9, albumin 2.8, corrected calcium still 7.9 Lipase 110 Liver associated enzymesAST 27, ALT 22, alk phos 76, total bilirubin 0.5 Stool studiesno WBCs, 3+ for occult blood, negative C. difficile, negative stool culture at 48 hours Blood cultures from 02/10/17no growth to date at 24 hours Radiology: Personally reviewed reports and images CT abdomen and pelvis with IV contrast 02/10/17 wall thickening or inflammatory changes noted throughout the intestinal tract. No evidence of acute gastritis, colitis or enteritis. No bowel obstruction. Diverticulosis without associated inflammatory changes in the distal transverse, descending and sigmoid colon.. Mid to distal colonic loops are on opacified with enteric contrast limiting evaluation. Normal pancreas. Liver with multiple subcentimeter lesions consistent with simple cysts. Gallbladder is surgically absent, no duct dilation. Nonspecific shotty mesenteric, inguinal and retroperitoneal lymph nodes. Bilateral pleural effusions with small volume ascites. CXR 02/10/17-report without acute cardiopulmonary findings. No noting of pleural effusions. Chemotherapy port is unchanged in position. Assessments: #Acute nausea, bilious emesis, diarrhea. Most consistent with acute gastroenteritis versus ischemic enteritis. CT scan without any significant findings outside of significant vascular disease. However, patient does not seem to have had an inciting event to lead to significant ischemia, no evidence of complete obstruction or embolus in the setting of lack of Eliquis use, or complete vascular obstruction. Has maintained low-dose daily aspirin. Significantly improved clinical condition as well as vital signs with persistent hydration and clear liquid diet. Stool studies negative for C. difficile, stool culture negative, ESR is elevated, which can be elevated in any acute condition. Differential diagnosis may have to be broadened if symptoms persist greater than 2 weeks. Patient not on NSAIDs other than low- dose aspirin, which are otherwise commonly associated with microscopic colitis as well as ulcerative disease. Patient is not on a PPI at home. #Normocytic anemia, MCV 84: In the setting of a patient with known esophageal cancer possible colon cancer that may never have been treated, from 4 years ago , with patient's report of significant tarry stools when he was put on his Eliquis 6 or 7 months ago while an inpatient, is very concerning for occult GI bleeding. This would also be consistent with positive Hemoccult stool studies. #Other specified counseling -- The patient was seen for greater than 30 minutes. The patient was counseled for greater than 50% of this time regarding differential diagnosis, likely diagnosis, diagnostic and therapeutic alternatives, risks/benefits/alternatives of medications and procedures, and plan of care generally. The patient expressed understanding and wishes to proceed. Recommendations: - Primary team to replace calcium, replace potassium - Check magnesium (ordered) and replace to goal of 2 - With negative stool culture is reasonable to institute antidiarrheal treatment if needed - Change dosing interval of Flagyl to every 8 hours in the setting of negative C. difficile. - Check iron studies, B12, folate (ordered) -Nursing agrees to request outside records from [facility] today as urgent, to assess prior records, and existence of colon cancer -EGD and Colonoscopy minimum as an outpatient, both for cancer assessment, melena assessment, positive Hemoccult card, and possible iron deficiency test pending. No current indication for acute endoscopy, but may be considered if symptoms do not completely resolve. -continue fluid resuscitation, clear liquid diet, and advance as tolerated Farnaz Ramírez MD, M[facility] STAFF N[employer]ITION AND [employer]ETETICS INSTRUCTOR Current Visit: No History of Present Illness History of present illness: Mr. Ambrosio is a 89 year old male Home Medications Medication Instructions Recorded Confirmed Type Albuterol Neb [Proventil Neb] 0.63 mg INH Q6HR 02/06/17 02/10/17 History Apixaban [Eliquis] 2.5 mg PO BID 02/06/17 02/10/17 History Aspirin [Ecotrin] 81 mg PO DAILY 02/06/17 02/10/17 History Budesonide/Formoterol 160-4.5 2 puff INH BID 02/06/17 02/10/17 History [Symbicort 160-4.5] Cetirizine Tab [ZyrTEC Tab] 10 mg PO DAILY 02/06/17 02/10/17 History Digoxin 125 mcg PO DAILY 02/06/17 02/10/17 History Docusate Sodium [Colace] 100 mg PO QPM 02/06/17 02/10/17 History Donepezil HCl 10 mg PO DAILY 02/06/17 02/10/17 History Flecainide [Tambocor] 100 mg PO BID 02/06/17 02/10/17 History Furosemide 20 mg PO DAILY 02/06/17 02/10/17 History HYDROcodone/ACETAMIN 5-325 [[place] 1 tablet PO Q6HR PRN 02/06/17 02/10/17 History 5-325] HydrOXYzine PAMOATE CAP [Vistaril 25 mg PO QPM 02/06/17 02/10/17 History Cap] LORazepam TAB [Ativan Tab] 1 mg PO DAILY 02/06/17 02/10/17 History Multivitamin [One Daily 1 tablet PO DAILY 02/06/17 02/10/17 History Multivitamin] Omeprazole [Prilosec] 20 mg PO DAILY 02/06/17 02/10/17 History Potassium Chloride 10 meq PO DAILY 02/06/17 02/10/17 History Simvastatin [Zocor] 10 mg PO DAILY 02/06/17 02/10/17 History Theophylline ER Cap (24 Hr) 300 mg PO DAILY 02/06/17 02/10/17 History [Tor-24] Tiotropium Inhalation [Spiriva 18 mcg INH DAILY 02/06/17 02/10/17 History Handihaler] dilTIAZem HCl [Diltiazem HCl] 120 mg PO DAILY 02/06/17 02/10/17 History Prochlorperazine Tab [Compazine 10 mg PO BID PRN tablet 02/09/17 02/10/17 Rx Tab] Allergies Allergy/AdvReac Type Severity Reaction Status Date / Time latex Allergy Intermediate ITCHING Verified 10/22/14 23:27 Cephalosporins Allergy Verified 02/06/17 16:22 meperidine [From Demerol] Allergy Verified 02/06/17 15:53 Medical,Surgical,& Family Hx - Medical History Cardio: History of: Cardiac Dysrhythmia (a fib), Hypertension No history of: Aneurysm, Cerebrovascular Disease, Congenital Heart Disease, CHF, CAD, [place], Pacemaker, PVD, Valvular Heart Disease, Cardiovascular Problems Psychological: History of: Anxiety Disorders (post traumatic stress disorder) No history of: ADHD, Behavior Problems, Bipolar Disorder, Depression, Previous Suicide Attempt, Psychiatric/Substance Abuse Tx, Schizophrenia, Violent Behavior, Psychiatric Problems Neurology: No history of: Brain Aneurysm, Cerebral Hemorrhage, Cerebrovascular Accident , Cerebral Palsy, Dementia, Migraine, Multiple Sclerosis, Parkinson's Disease, Peripheral Neuropathy, Seizures, TIA, Vertigo, Neurologocal Cancer HEENT: History of: Eye Problem (cataract) No history of: Ear Problem, Dental Problems, Glaucoma, Oral Cancer, HEENT Problems Endocrine: History of: Dyslipidemia No history of: Adrenal Disease, Diabetes Mellitus (IDDM), Diabetes Mellitus ( NIDDM), Thyroid Disorder, Endocrine Cancer, Endocrine Problems Rheumatology: History of;: Rheumatological Problems No history of;: Fibromyalgia, Gout, Myasthenia Gravis, Psoriasis, Rheumatoid Arthritis, Sjogrens, Systemic Lupus Erythematosus Respiratory: History of: Bronchitis (chronic), COPD, Intubation, Pneumonia No history of: Asthma, Obstructive Sleep Apnea, Pulmonary Embolism, Pulmonary Hypertension, Lung Cancer, Respiratory Problems Renal: No history of: Renal (Kidney) Cancer, Dialysis, Renal Failure, Renal Problems Genitourinary: No history of: Bladder Problem, Kidney Stones, Prostate Problems, Recurring Urinary Tract Infections, Genitourinary Cancer, Problems Gastrointestinal: History of: GERD, Polyps, Gastrointestinal Cancer (esophageal) No history of: Bowel Obstruction, Clostridium Difficile, Crohn's Disease, Diverticulitis/ Diverticulosis, Esophageal Varices, Gastrointestinal Bleed, Hemorrhoids, Hematochezia, Hepatitis, Liver Problems, Pancreatitis, Ulcerative Colitis, GI Problems Musculoskeletal: History of: Musculoskeletal Problems (right knee injury in [place] 1950) No history of: Amputation, Back/Neck Problems, Degenerative Disk Disease, Herniated Disk, Osteoporosis, Musculoskeletal Cancer Hematology: No history of: Anemia, Blood Transfusion Reaction, Bleeding Problems, Clotting Problems, Sickle Cell Disease, Hematologic Cancer, Blood Disorders Reproductive: No histroy: Penile Disorder, Sexually Transmitted Disease, Reproductive Cancer, Reproductive Problems Other: History of: Cancer (ESOPHAGEAL) No history of: Anesthesia Reactions, Anaphylaxis, Eczema, HIV, Malignant Hyperthermia, MRSA, Vancomycin-Resistant Enterococci, Skin Problems, Miscellaneous Medical Problems - Surgical History Cardiac Surgeries: Sugical HX of: Femoral-Popliteal Bypass Graft, Vascular Access Devices (mediport) Patient Denies: Cardiac Catheterization, Cardiac Surgery, Carotid Endarterectomy, Internal Defibrillator Thoracic Surgeries: Patient denies;: Kidney (Renal Surgery), Lithotripsy, Nephrectomy, Organ Transplant, Lobectomy Neurologic Surgeries: Patient denies: Brain Aneurysm, Cerebral Hemorrhage, Neurologic Surgery HEENT Surgeries: Surgical HX of: Eye Surgery (cataract), Tonsilectomy & Adenoidectomy Patient denies: Carotid Endarterectomy, Thyroid Surgery Abdominal Surgeries: Surgical HX of: Abdominal Surgery, Appendectomy, Cholecystectomy, Colonoscopy, EGD Patient denies: Gastric Bypass Surgery, Hernia Repair, Splenectomy Reproductive Surgeries: Patient denies;: Breast Surgery, Cystoscopy, Genitourinary Surgery, Prostate Surgery, Vasectomy Orthopedic Surgeries: Surgical HX of;: Implanted Devices (MEDIPORT) Patient denies;: Orthopedic Surgery, Spinal Surgery, Total Hip Replacement, Total Knee Replacement - Family History Family History: Reports;: Family Cancer (SISTER), Family Heart Disease (dad), Family Stroke (mom) Denies;: Family Anesthesia Reaction, Family Diabetes, Family Hypertension, Family Psychiatric Problems - Social History Smoking Status: Former smoker Frequency of Alcohol Use: None Type of Drug Use: None Exam - Constitutional Vitals: Period Temp Pulse Resp BP Sys/Finney Pulse Ox Last 24 Hr 97.0 F-98.7 F 59-78 16-20 111-129/55-74 94-98 Results - Labs CBC & BMP: 02/12/17 04:00 02/12/17 04:00
[2017-02-12 15:45] LABS: Ferritin 27.3 ng/ml (26-388); Magnesium 1.6 MG/DL (1.8-2.4)
[2017-02-12 15:59] LABS: Folate 22.2 NG/ML (5.4-24.0)
[2017-02-12] MEDS: POTASSIUM CHLORIDE 20 MEQ TABLET PO SCH ×3 (16:23→23:18)
[2017-02-12] MEDS ORDERED: PROCHLORPERAZINE 10 MG TABLET PO PRN (16:32)
[2017-02-12] MEDS: FUROSEMIDE 20 MG TABLET PO SCH (17:00)
[2017-02-12] MEDS: DOCUSATE SODIUM 100 MG CAPSULE PO SCH (20:39)
[2017-02-12] MEDS: FLECAINIDE 100 MG TABLET PO SCH (20:39)
[2017-02-12] MEDS: SIMVASTATIN 10 MG TABLET PO SCH (20:39)
[2017-02-12] MEDS: HydrOXYzine PAMOATE 25 MG CAPSULE PO SCH (20:39)
[2017-02-13] MEDS: ALBUTEROL/IPRATROPIUM 3 ML NEB RESP TX SCH ×4 (01:00→18:56)
[2017-02-13 03:19] LABS: Basophils # 0.1 10*3/uL (0.0-0.2); Basophils % 0.5 % (0.0-0.8); Eosinophils # 0.6 10*3/uL (0.0-0.87); Eosinophils % 6.4 % (0.00-10.9); Hematocrit 24.9 VOL% (42.0-52.0); Hemoglobin 8.3 GM/DL (14.0-18.0); Immature Granulocytes % 0.5 %; Immature Granulocytes Absolute 0.05 #; Lymphocytes # 1.6 10*3/uL (1.4-4.0); Lymphocytes % 16.5 % (21.2-54.2); Mean Corpuscular HGB Conc 33.3 GM/DL (32-36); Mean Corpuscular Hemoglobin 28 PG (27-34); Mean Platelet Volume 8.8 FL (9.6-12.0); Monocytes # 0.8 10*3/uL (0.11-0.8); Monocytes % 8.6 % (1.7-12.7); Neutrophils # 6.5 10*3/uL (1.4-7.4); Neutrophils % 67.5 % (38.7-73.9); Platelet Count 309 T/CUMM (130-400); Red Cell Distribution Width 15.7 % (9.3-17.3); White Blood Count 9.7 T/CUMM (4-12)
[2017-02-13 03:52] LABS: Calcium 7.2 MG/DL (8.5-10.1); Osmolality,Calculated 284.8 MOS/KG (273-304); Potassium 3.4 MMOL/L (3.5-5.1)
[2017-02-13] MEDS: SODIUM CHLORIDE 0.9% 1,000 ML IV SCH ×2 (04:00→16:44)
[2017-02-13] MEDS: MULTIVITAMIN (CENTRUM) TABLET PO SCH (08:18)
[2017-02-13] MEDS: DONEPEZIL 10 MG TABLET PO SCH (08:18)
[2017-02-13] MEDS: FLECAINIDE 100 MG TABLET PO SCH ×2 (08:18→21:12)
[2017-02-13] MEDS: BUDESONIDE/FORMOTEROL 160-4.5 INHALER 6 GM INH SCH ×3 (08:18→21:22)
[2017-02-13] MEDS: THEOPHYLLINE ER (24 HR) 300 MG CAPSULE PO SCH (08:18)
[2017-02-13] MEDS: LORazepam 1 MG TABLET PO SCH (08:18)
[2017-02-13] MEDS: APIXABAN 2.5 MG TABLET PO SCH (08:18)
[2017-02-13] MEDS: FUROSEMIDE 20 MG TABLET PO SCH (08:18)
[2017-02-13] MEDS: ASPIRIN EC 81 MG TABLET PO SCH (08:18)
[2017-02-13] MEDS: CETIRIZINE 10 MG TABLET PO SCH (08:19)
[2017-02-13] MEDS: PANTOPRAZOLE 40 MG TABLET PO SCH (08:19)
[2017-02-13] MEDS: metroNIDAZOLE INJ 500 MG in PREMIX 1 EACH IV SCH ×2 (08:19→21:13)
[2017-02-13] MEDS: DILTIAZEM CD 120 MG CAPSULE PO SCH (08:27)
[2017-02-13] MEDS ORDERED: POTASSIUM CHLORIDE 10 MEQ TABLET PO SCH (09:00)
[2017-02-13] MEDS ORDERED: CALCIUM CHLORIDE 1,000 MG/10 ML SYRINGE IV ONE (09:12)
--- NOTE | 2017-02-13 09:26 | Hospitalist Progress Note ---
Assessment and Plan (1) Hypokalemia Status: Acute Assessment and plan: His potassium is 3.4 today. I have begun him on potassium chloride 40 mEq p.o. daily. Current Visit: Yes (2) Dehydration Status: Resolved Assessment and plan: His BUN and creatinine were 23 and 1.0 respectively on admission. They are 9 and 0.8 respectively today. Current Visit: No (3) History of esophageal cancer Status: Chronic Current Visit: No (4) COPD (chronic obstructive pulmonary disease) Status: Acute Assessment and plan: He appears stable. He is not experiencing any respiratory difficulties. Current Visit: No (5) Nausea vomiting and diarrhea Status: Resolved Assessment and plan: He is significantly better today. He is not experiencing nausea, vomiting, or diarrhea. He is requesting solid food. It was the impression of gastroenterology that he was most probably experiencing acute gastroenteritis, which appears to be resolving. Current Visit: No (6) Hypocalcemia Status: Acute Assessment and plan: His calcium today is 7.8. He will receive calcium gluconate 1000 mg intravenous today. Current Visit: Yes Hospitalist: Subjective Interval history: Patient feels somewhat better today. He has not had any diarrhea today. His appetite has improved and he is requesting solid food. He was seen in consultation yesterday by gastroenterology. I will follow their recommendations. Exam - Constitutional Vitals: Period Temp Pulse Resp BP Sys/Finney Pulse Ox Last 24 Hr 97.1 F-98.0 F 60-88 16-20 116-144/52-67 90-97 General appearance: no acute distress - Head Head exam: Present: normal inspection - Neck Neck exam: Present: normal inspection - Respiratory Respiratory exam: Present: clear to auscultation bilaterally - Cardiovascular Cardiovascular exam: Present: regular rate and rhythm - GI/Abdominal GI/Abdominal exam: Present: normal bowel sounds, soft, other (Nontender with no palpable masses or hepatosplenomegaly.) - Extremities Exam Extremities exam: Present: normal inspection - Neurological Exam Neurological exam: Present: alert, oriented X3 - Skin Skin exam: Present: normal color, warm, intact Results - Labs CBC & BMP: 02/13/17 02:58 02/13/17 02:58
[2017-02-13] MEDS ORDERED: CALCIUM GLUCONATE 1,000 MG in SODIUM CHLORIDE 0.9% 100 ML IV ONE (10:00)
[2017-02-13] MEDS: POTASSIUM CHLORIDE 20 MEQ TABLET PO SCH (10:36)
--- NOTE | 2017-02-13 11:25 | Gastrointestinal Progress Note ---
Assessment and Plan (1) Nausea vomiting and diarrhea Status: Resolved Assessment and plan: 02/13-nausea, vomiting and diarrhea now resolved. Epigastric pain resolved at present. Prior history of esophageal cancer as well as "colon cancer" seen on colonoscopy 4 years ago. Negative stool studies with 3+ positive occult blood stools. Consider EGD to further evaluate with history of esophageal cancer. Plan an addendum to followed by Dr. Mitchell. Current Visit: No Gastroenterology - PN: Subj Interval history: CC: Nausea, vomiting, diarrhea Pt is awake and alert, lying in bed with sitter at bedside. Patient states that he is feeling much better today with no complaints at this time of nausea, vomiting or diarrhea. He also states his epigastric pain is currently resolved at this time. Patient has been tolerating his clear liquid diet and this is being advanced today. We are still awaiting records from [facility] to verify findings of his last endoscopy including a history of his esophageal cancer. His stool studies have been negative however he is 3+ positive for occult blood. Verified with patient that he is not taking his Eliquis and has not been taking this. Also CT findings were reviewed. Abdomen is soft, nontender. Patient does state that his biggest concern at this time is regarding that questionable colon cancer that he was told he had on and endoscopy 4 years ago. Patient has not had repeat endoscopy since that time. His H&H is stable at 8.3/24.9. ROS: Denies shortness of breath or chest pain Exam (Progress Note) - Constitutional Vitals: Period Temp Pulse Resp BP Sys/Finney Pulse Ox Last 24 Hr 97.1 F-98.0 F 60-88 16-20 116-144/52-67 90-97 General appearance: normal weight, no acute distress - Head Head exam: Present: normal inspection, normocephalic - Eye Eye exam: Present: other (Lids and conjunctivae are unremarkable). Absent: scleral icterus - ENT ENT exam: Present: normal exam, normal oropharynx - Neck Neck exam: Present: normal inspection - Respiratory Respiratory exam: Present: clear to auscultation bilaterally. Absent: rales, rhonchi, wheezes - Cardiovascular Cardiovascular exam: Present: regular rate and rhythm. Absent: diastolic murmur , JVD, systolic murmur - GI/Abdominal GI/Abdominal exam: Present: normal bowel sounds, soft. Absent: ascites, distended, mass, organomegaly, tenderness - Extremities Exam Extremities exam: Present: normal inspection, full ROM - Back Exam Back exam: Present: normal inspection - Neurological Exam Neurological exam: Present: alert, oriented X3 - Psychiatric Psychiatric exam: Present: normal affect, normal mood - Skin Skin exam: Present: normal color, warm, dry Results - Labs CBC & BMP: 02/13/17 02:58 02/13/17 02:58 Lab Results: I have reviewed the past 24 hour labs
[2017-02-13] MEDS: DIGOXIN 0.125 MG TABLET PO SCH (13:27)
[2017-02-13] MEDS: DOCUSATE SODIUM 100 MG CAPSULE PO SCH (21:12)
[2017-02-13] MEDS: HydrOXYzine PAMOATE 25 MG CAPSULE PO SCH (21:12)
[2017-02-13] MEDS: SIMVASTATIN 10 MG TABLET PO SCH (21:14)
[2017-02-14 04:21] LABS: Basophils % 0.5 % (0.0-0.8); Eosinophils # 0.9 10*3/uL (0.0-0.87); Eosinophils % 9.7 % (0.00-10.9); Hemoglobin 8.1 GM/DL (14.0-18.0); Immature Granulocytes % 0.2 %; Immature Granulocytes Absolute 0.02 #; Lymphocytes # 1.4 10*3/uL (1.4-4.0); Lymphocytes % 15.8 % (21.2-54.2); Mean Corpuscular HGB Conc 33.8 GM/DL (32-36); Mean Corpuscular Hemoglobin 28 PG (27-34); Mean Corpuscular Volume 82.8 FL (87-102); Mean Platelet Volume 9.1 FL (9.6-12.0); Monocytes # 0.8 10*3/uL (0.11-0.8); Monocytes % 9.6 % (1.7-12.7); Neutrophils # 5.6 10*3/uL (1.4-7.4); Neutrophils % 64.2 % (38.7-73.9); Platelet Count 314 T/CUMM (130-400); Red Cell Distribution Width 15.7 % (9.3-17.3); White Blood Count 8.7 T/CUMM (4-12)
[2017-02-14 04:49] LABS: Albumin 2.2 G/DL (3.4-5.0); Bilirubin,Total 0.6 MG/DL (0.2-1.0); Calcium 7.2 MG/DL (8.5-10.1); Potassium 3.1 MMOL/L (3.5-5.1); Total Protein 4.2 G/DL (6.4-8.3)
[2017-02-14] MEDS: ALBUTEROL/IPRATROPIUM 3 ML NEB RESP TX SCH ×4 (07:35→19:05)
[2017-02-14] MEDS: SODIUM CHLORIDE 0.9% 1,000 ML IV SCH ×2 (08:50→19:45)
[2017-02-14] MEDS: POTASSIUM CHLORIDE RIDER 10 MEQ in PREMIX 1 EACH IV SCH ×3 (08:50→10:59)
[2017-02-14] MEDS: DONEPEZIL 10 MG TABLET PO SCH (09:57)
[2017-02-14] MEDS: FUROSEMIDE 20 MG TABLET PO SCH (09:58)
[2017-02-14] MEDS: LORazepam 1 MG TABLET PO SCH ×2 (09:58→14:15)
[2017-02-14] MEDS: PANTOPRAZOLE 40 MG TABLET PO SCH ×2 (09:58→14:14)
[2017-02-14] MEDS: CETIRIZINE 10 MG TABLET PO SCH ×2 (09:58→14:14)
[2017-02-14] MEDS: POTASSIUM CHLORIDE 20 MEQ TABLET PO SCH ×2 (09:58→14:14)
[2017-02-14] MEDS: FLECAINIDE 100 MG TABLET PO SCH (09:58)
[2017-02-14] MEDS: THEOPHYLLINE ER (24 HR) 300 MG CAPSULE PO SCH ×2 (09:58→14:14)
[2017-02-14] MEDS: MULTIVITAMIN (CENTRUM) TABLET PO SCH ×2 (09:58→14:14)
[2017-02-14] MEDS: ASPIRIN EC 81 MG TABLET PO SCH ×2 (09:58→14:15)
[2017-02-14] MEDS: DILTIAZEM CD 120 MG CAPSULE PO SCH ×2 (09:58→14:14)
[2017-02-14] MEDS: BUDESONIDE/FORMOTEROL 160-4.5 INHALER 6 GM INH SCH ×2 (11:00→21:27)
--- NOTE | 2017-02-14 11:13 | Hospitalist Progress Note ---
Assessment and Plan (1) Hypokalemia Status: Acute Assessment and plan: His potassium is 3.1 today. He is receiving IV KCl replacement. Current Visit: Yes (2) History of esophageal cancer Status: Chronic Assessment and plan: He is to undergo EGD today. Current Visit: No (3) COPD (chronic obstructive pulmonary disease) Status: Acute Assessment and plan: He appears stable. He is not experiencing any respiratory difficulties. Current Visit: No (4) Hypocalcemia Status: Acute Assessment and plan: His calcium today is 7.2. He will receive calcium gluconate 1000 mg intravenous today. Current Visit: Yes Hospitalist: Subjective Interval history: Patient has no new complaints. He is to undergo EGD today. Exam - Constitutional Vitals: Period Temp Pulse Resp BP Sys/Finney Pulse Ox Last 24 Hr 96.5 F-97.9 F 61-94 18-61 111-146/49-66 90-99 General appearance: no acute distress - Head Head exam: Present: normal inspection - Neck Neck exam: Present: normal inspection - Respiratory Respiratory exam: Present: clear to auscultation bilaterally - Cardiovascular Cardiovascular exam: Present: regular rate and rhythm - GI/Abdominal GI/Abdominal exam: Present: normal bowel sounds, soft, other (Nontender.) - Extremities Exam Extremities exam: Present: normal inspection - Skin Skin exam: Present: normal color, warm, intact Results - Labs CBC & BMP: 02/14/17 02:58 02/14/17 02:58
[2017-02-14] MEDS ORDERED: CALCIUM GLUCONATE 1,000 MG in SODIUM CHLORIDE 0.9% 100 ML IV ONE (12:00)
[2017-02-14] MEDS ORDERED: PROPOFOL 200 MG/20 ML VIAL IV ONE (12:58)
[2017-02-14] MEDS ORDERED: LIDOCAINE 1% 5 ML VIAL ONE (12:58)
--- NOTE | 2017-02-14 12:58 | History and Physical Update ---
History and Physical Update - History and Physical H&P was reviewed, the patient examined and there: are no changes in the patients condition since last H&P was completed. - Physical Exam Mental Status: alert and oriented Heart: regular rate and rhythm Lung: clear to auscultation Abdomen: within normal limits Vitals: within normal limits
--- NOTE | 2017-02-14 13:12 | Operative Note ---
Date of procedure: 02/14/17 Pre-op diagnosis: Blood in stool, history of esophageal cancer Procedure: Procedure: Esophagogastroduodenoscopy with heater probe coagulation bleeding esophageal AVMs Brief clinical abstract: Patient is an 89-year-old male with history of esophageal cancer treated with chemotherapy and radiation and no residual disease a couple of years ago. He is admitted with weakness and found to have blood in stool. Indication for procedure: Blood in stool, history of esophageal cancer Endoscopic findings:[After informed consent was obtained, the patient was placed in the left lateral decubitus position. The gastroscope was inserted in the upper esophagus under direct vision with no resistance encountered. Esophageal mucosa appeared normal down the level just above the squamocolumnar junction. There were several areas which appeared to be vascular malformations noted with a couple of these oozing a small amount of bright red blood. These areas were coagulated with heater probe on a setting of 15 W. No mass or ulceration was seen. Patient had a small hiatal hernia. The endoscope was advanced in the stomach which was carefully examined including retroflexed view of the cardia and fundus with no other abnormalities noted. The pyloric channel , duodenal bulb, second and third portion of the duodenum appeared normal. The endoscope was removed and patient appeared to tolerate the procedure well. 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 given location #2 hiatal hernia Recommendations: Colonoscopy tomorrow if stable Anesthesia: MAC Surgeon / Physician: Jamal Mitchell Estimated blood loss: minimal Specimens: none sent Condition: stable Disposition: post procedure unit Results - Labs CBC & BMP: 02/14/17 02:58 02/14/17 11:07 Discharge Plan - Discharge Medications No Action Tiotropium Inhalation [Spiriva Handihaler] 18 mcg INH DAILY Simvastatin [Zocor] 10 mg PO DAILY Potassium Chloride 10 meq PO DAILY Omeprazole [Prilosec] 20 mg PO DAILY Multivitamin [One Daily Multivitamin] 1 tablet PO DAILY HydrOXYzine PAMOATE CAP [Vistaril Cap] 25 mg PO QPM Furosemide 20 mg PO DAILY Flecainide [Tambocor] 100 mg PO BID Donepezil HCl 10 mg PO DAILY Docusate Sodium [Colace] 100 mg PO QPM Digoxin 125 mcg PO DAILY Cetirizine Tab [ZyrTEC Tab] 10 mg PO DAILY Budesonide/Formoterol 160-4.5 [Symbicort 160-4.5] 2 puff INH BID Aspirin [Ecotrin] 81 mg PO DAILY Albuterol Neb [Proventil Neb] 0.63 mg INH Q6HR Theophylline ER Cap (24 Hr) [Tor-24] 300 mg PO DAILY LORazepam TAB [Ativan Tab] 1 mg PO DAILY HYDROcodone/ACETAMIN 5-325 [[place] 5-325] 1 tablet PO Q6HR PRN PRN Reason: Pain dilTIAZem HCl [Diltiazem HCl] 120 mg PO DAILY Apixaban [Eliquis] 2.5 mg PO BID Prochlorperazine Tab [Compazine Tab] 10 mg PO BID PRN tablet PRN Reason: Nausea/Vomiting - Follow Up or Referral - Forms/Instructions
--- NOTE | 2017-02-14 13:35 | Anesthesia Post-Op ---
Anesthesia Post OP - Post Ansesthetic Evaluation Patient seen in post op: Yes Resp: within normal limits CV: within normal limits Mental: within normal limits Temp: within normal limits Qidc-[id number]: within normal limits Nausea and Vomiting: within normal limits Pain: within normal limits
[2017-02-14] MEDS: DIGOXIN 0.125 MG TABLET PO SCH (14:13)
[2017-02-14] MEDS: metroNIDAZOLE INJ 500 MG in PREMIX 1 EACH IV SCH ×2 (14:13→21:26)
[2017-02-14] MEDS: FLUCONAZOLE 100 MG TABLET PO SCH (15:12)
[2017-02-14] MEDS ORDERED: POLYETHYLENE GLYCOL POWDER 255 GM BOTTLE PO ONE (18:00)
[2017-02-14] MEDS: DOCUSATE SODIUM 100 MG CAPSULE PO SCH (21:26)
[2017-02-14] MEDS: SIMVASTATIN 10 MG TABLET PO SCH (21:27)
[2017-02-15] MEDS: SODIUM CHLORIDE 0.9% 1,000 ML IV SCH ×4 (02:24→23:37)
[2017-02-15] MEDS: ALBUTEROL/IPRATROPIUM 3 ML NEB RESP TX SCH ×4 (05:17→19:56)
[2017-02-15 05:50] LABS: Basophils # 0.1 10*3/uL (0.0-0.2); Basophils % 0.5 % (0.0-0.8); Eosinophils # 0.6 10*3/uL (0.0-0.87); Eosinophils % 6.7 % (0.00-10.9); Hematocrit 24.5 VOL% (42.0-52.0); Hemoglobin 8.4 GM/DL (14.0-18.0); Immature Granulocytes % 0.4 %; Immature Granulocytes Absolute 0.04 #; Lymphocytes # 1.3 10*3/uL (1.4-4.0); Mean Corpuscular HGB Conc 34.3 GM/DL (32-36); Mean Corpuscular Hemoglobin 28 PG (27-34); Mean Corpuscular Volume 82.2 FL (87-102); Mean Platelet Volume 9.3 FL (9.6-12.0); Neutrophils # 6.2 10*3/uL (1.4-7.4); Neutrophils % 67.4 % (38.7-73.9); Platelet Count 308 T/CUMM (130-400); Red Blood Count 2.98 MC/CUMM (3.8-5.5); Red Cell Distribution Width 15.7 % (9.3-17.3); White Blood Count 9.2 T/CUMM (4-12)
[2017-02-15] MEDS ORDERED: MAGNESIUM CITRATE 300 ML BOTTLE PO ONE (06:00)
[2017-02-15 06:21] LABS: Alanine Aminotransferase 10 U/L (16-61); Alkaline Phosphatase 55 U/L (45-117); Aspartate Amino Transferase 13 U/L (0-37); Calcium 7.5 MG/DL (8.5-10.1)
[2017-02-15 06:22] LABS: Albumin 2.3 G/DL (3.4-5.0); Bilirubin,Total < 0.39 MG/DL (0.2-1.0); Blood Urea Nitrogen 4 MG/DL (7-18); Glucose 91 MG/DL (74-106); Potassium 3.5 MMOL/L (3.5-5.1); Sodium 143 MMOL/L (136-145); Total Protein 4.4 G/DL (6.4-8.3)
[2017-02-15] MEDS: ASPIRIN EC 81 MG TABLET PO SCH ×2 (09:36→14:13)
[2017-02-15] MEDS: POTASSIUM CHLORIDE 20 MEQ TABLET PO SCH ×2 (09:37→14:14)
[2017-02-15] MEDS: LORazepam 1 MG TABLET PO SCH ×2 (09:37→14:13)
[2017-02-15] MEDS: MULTIVITAMIN (CENTRUM) TABLET PO SCH ×2 (09:37→14:13)
[2017-02-15] MEDS: THEOPHYLLINE ER (24 HR) 300 MG CAPSULE PO SCH ×2 (09:37→14:12)
[2017-02-15] MEDS: DILTIAZEM CD 120 MG CAPSULE PO SCH ×2 (09:37→14:13)
[2017-02-15] MEDS: PANTOPRAZOLE 40 MG TABLET PO SCH ×2 (09:37→14:12)
[2017-02-15] MEDS: FLUCONAZOLE 100 MG TABLET PO SCH (09:37)
[2017-02-15] MEDS: FUROSEMIDE 20 MG TABLET PO SCH (09:37)
[2017-02-15] MEDS: BUDESONIDE/FORMOTEROL 160-4.5 INHALER 6 GM INH SCH ×2 (09:37→20:44)
[2017-02-15] MEDS: CETIRIZINE 10 MG TABLET PO SCH ×2 (09:37→14:12)
--- NOTE | 2017-02-15 11:28 | Hospitalist Progress Note ---
Assessment and Plan (1) Hypokalemia Status: Acute Assessment and plan: His potassium is 3.5 today. Current Visit: Yes (2) History of esophageal cancer Status: Chronic Assessment and plan: There was no evidence of recurrent esophageal cancer by EGD. Current Visit: No (3) COPD (chronic obstructive pulmonary disease) Status: Acute Assessment and plan: He appears stable. He is not experiencing any respiratory difficulties. Current Visit: No (4) Hypocalcemia Status: Acute Assessment and plan: His calcium today is 7.5. Current Visit: Yes (5) AVM (arteriovenous malformation) Status: Acute Assessment and plan: Patient underwent successful heater probe coagulation of bleeding esophageal AVMs. Current Visit: Yes (6) GI bleed Status: Acute Assessment and plan: Patient is status post GI bleed due to bleeding AVMs of the esophagus. He underwent successful heater probe coagulation yesterday. Current Visit: Yes (7) Anemia Status: Acute Assessment and plan: His hematocrit and hemoglobin today are 24.5 and 8.4 respectively. They were 23.3 and 7.7 respectively at the time of admission on February 12, 2017. Current Visit: Yes Qualifiers: Iron deficiency anemia type: chronic blood loss Hospitalist: Subjective Interval history: Patient underwent a heater probe coagulation of bleeding esophageal AVM's yesterday. He is to undergo a colonoscopy today. He is comfortable with no specific complaints. Exam - Constitutional Vitals: Period Temp Pulse Resp BP Sys/Finney Pulse Ox Last 24 Hr 97.2 F-99.5 F 68-107 11-22 98-155/47-86 92-99 General appearance: no acute distress - Head Head exam: Present: normal inspection - Neck Neck exam: Present: normal inspection - Respiratory Respiratory exam: Present: clear to auscultation bilaterally - Cardiovascular Cardiovascular exam: Present: regular rate and rhythm - GI/Abdominal GI/Abdominal exam: Present: normal bowel sounds, soft, other (Nontender with no palpable masses or hepatosplenomegaly.) - Extremities Exam Extremities exam: Present: normal inspection - Neurological Exam Neurological exam: Present: alert, oriented X3 - Skin Skin exam: Present: normal color, warm, intact Results - Labs CBC & BMP: 02/15/17 05:23 02/15/17 05:23
[2017-02-15] MEDS ORDERED: PROPOFOL 200 MG/20 ML VIAL IV ONE (12:30)
[2017-02-15] MEDS ORDERED: LIDOCAINE 1% 5 ML VIAL ONE (12:30)
--- NOTE | 2017-02-15 12:59 | Operative Note ---
Date of procedure: 02/15/17 Pre-op diagnosis: Iron deficiency anemia, blood in stool Procedure: Procedure note: Colonoscopy with snare polypectomy and biopsies Physician: Dr. Marcus Mitchell Brief clinical abstract: Patient is an 89-year-old male admitted with nausea/ vomiting and diarrhea which have improved. He was noted to have iron deficiency anemia with occult blood in stool. Patient had colon polyp noted colonoscopy around [address] Deal with carcinoma in situ noted then with patient not electing to have any surgical intervention. Endoscopic findings: After informed consent was obtained, the patient was placed in the left lateral decubitus position. Digital rectal exam was performed with no palpable abnormalities felt. Pediatric videocolonoscope was inserted into the rectum and advanced to the cecum with some difficulty due to suboptimal bowel prep and redundant colon. At the ileocecal valve there was a large friable exophytic mass consistent with carcinoma. Photos were taken and multiple biopsies obtained for pathologic examination. Withdrawal time was over 6 minutes duration. Bowel prep was of poor quality with scattered solid stool in the colon. 2 polyps were noted in the proximal transverse colon, each around 8 mm diameter, and removed with snare using coagulation current. Distal to this no other polyps are seen. A large number of diverticuli were noted in the left colon. The endoscope was withdrawn in the rectum with retroflex view showing no abnormalities. The endoscope was removed and patient appeared to tolerate the procedure well. 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 He may be having obstructive symptoms with location of this at ileocecal valve. Would probably do CT abdomen/pelvis to evaluate for metastatic disease. Anesthesia: MAC Surgeon / Physician: Jamal Mitchell Estimated blood loss: minimal Specimens: other (Ascending colon mass, transverse colon polyps) Condition: stable Disposition: post procedure unit Results - Labs CBC & BMP: 02/15/17 05:23 02/15/17 05:23 Discharge Plan - Discharge Medications No Action Tiotropium Inhalation [Spiriva Handihaler] 18 mcg INH DAILY Simvastatin [Zocor] 10 mg PO DAILY Potassium Chloride 10 meq PO DAILY Omeprazole [Prilosec] 20 mg PO DAILY Multivitamin [One Daily Multivitamin] 1 tablet PO DAILY HydrOXYzine PAMOATE CAP [Vistaril Cap] 25 mg PO QPM Furosemide 20 mg PO DAILY Flecainide [Tambocor] 100 mg PO BID Donepezil HCl 10 mg PO DAILY Docusate Sodium [Colace] 100 mg PO QPM Digoxin 125 mcg PO DAILY Cetirizine Tab [ZyrTEC Tab] 10 mg PO DAILY Budesonide/Formoterol 160-4.5 [Symbicort 160-4.5] 2 puff INH BID Aspirin [Ecotrin] 81 mg PO DAILY Albuterol Neb [Proventil Neb] 0.63 mg INH Q6HR Theophylline ER Cap (24 Hr) [Tor-24] 300 mg PO DAILY LORazepam TAB [Ativan Tab] 1 mg PO DAILY HYDROcodone/ACETAMIN 5-325 [[place] 5-325] 1 tablet PO Q6HR PRN PRN Reason: Pain dilTIAZem HCl [Diltiazem HCl] 120 mg PO DAILY Apixaban [Eliquis] 2.5 mg PO BID Prochlorperazine Tab [Compazine Tab] 10 mg PO BID PRN tablet PRN Reason: Nausea/Vomiting - Follow Up or Referral - Forms/Instructions
--- NOTE | 2017-02-15 13:08 | Anesthesia Post-Op ---
Anesthesia Post OP - Post Ansesthetic Evaluation Patient seen in post op: Yes Resp: within normal limits CV: within normal limits Mental: within normal limits Temp: within normal limits Eecx-Rk-Konqzlyhx: within normal limits Nausea and Vomiting: within normal limits Pain: within normal limits
[2017-02-15] MEDS: DIGOXIN 0.125 MG TABLET PO SCH (14:12)
[2017-02-15] MEDS: metroNIDAZOLE INJ 500 MG in PREMIX 1 EACH IV SCH ×2 (14:18→20:41)
[2017-02-15] MEDS: SIMVASTATIN 10 MG TABLET PO SCH (20:42)
[2017-02-15] MEDS: DOCUSATE SODIUM 100 MG CAPSULE PO SCH (20:42)
[2017-02-16] MEDS: ALBUTEROL/IPRATROPIUM 3 ML NEB RESP TX SCH ×4 (01:34→19:37)
[2017-02-16 06:32] LABS: Basophils # 0.1 10*3/uL (0.0-0.2); Basophils % 0.6 % (0.0-0.8); Eosinophils # 0.7 10*3/uL (0.0-0.87); Eosinophils % 6.1 % (0.00-10.9); Hemoglobin 8.1 GM/DL (14.0-18.0); Immature Granulocytes % 0.4 %; Immature Granulocytes Absolute 0.04 #; Lymphocytes # 1.2 10*3/uL (1.4-4.0); Lymphocytes % 11.4 % (21.2-54.2); Mean Corpuscular HGB Conc 33.8 GM/DL (32-36); Mean Corpuscular Hemoglobin 28 PG (27-34); Mean Platelet Volume 9.5 FL (9.6-12.0); Monocytes # 1.1 10*3/uL (0.11-0.8); Monocytes % 10.3 % (1.7-12.7); Neutrophils # 7.7 10*3/uL (1.4-7.4); Neutrophils % 71.2 % (38.7-73.9); Platelet Count 288 T/CUMM (130-400); Red Blood Count 2.89 MC/CUMM (3.8-5.5); Red Cell Distribution Width 15.9 % (9.3-17.3); White Blood Count 10.7 T/CUMM (4-12)
[2017-02-16 06:55] LABS: Calcium 7.1 MG/DL (8.5-10.1); Osmolality,Calculated 276.3 MOS/KG (273-304); Potassium 3.6 MMOL/L (3.5-5.1)
--- NOTE | 2017-02-16 07:48 | CT Report ---
Exam: CT abdomen pelvis w con Date: 02/16/2017 716 AM Comparison: 02/10/2017 Indication: Colon mass Total DLP: 849.2 mGy*cm Technical: Oral contrast was administered. Images were obtained from the lung bases to the iliac crest continuation through the pelvis with 100 cc of Omnipaque 350 with axial sagittal coronal imaging available for review. Dose reduction was performed with decreasing kv and mA and automated exposure Findings: Lung bases: Low volume effusions and bibasilar atelectatic changes are present. Component of underlying mild COPD some pleural thickening is also present particularly on the left base. Liver and Spleen: Multiple low densities are present within the liver. These appear to represent cyst. Hepatic and portal veins are patent. The spleen is unremarkable. Gallbladder and Pancreas: Gallbladder is surgically absent. Minimal fatty infiltration of the pancreas present. Adrenals: Unremarkable Kidneys: Cystic change present in the right kidney measuring up to 2.3 cm. Normal excretion otherwise noted. The ureters are demonstrated to the bladder. Stomach: Incompletely distended with air fluid contrast and debris Retroperitoneum: No enlarged lymph nodes. Aorta and IVC: Vascular plaque in aorta iliac vessels. 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 The external iliac artery reconstituted from the internal iliac artery on the left. The right common external and internal iliac arteries are patent. There is a femoral-femoral crossover graft present along the pelvis. The IVC is patent. Bowel and Mesentery: There is a lesion in the right colon at just above the cecum area. Some diverticular changes are present extensively within the rectosigmoid and descending colon. Small bowel is otherwise unremarkable. Pelvis: Bladder: Incompletely distended with fluid Fluid: No free fluid identified. Lymph nodes: No enlarged lymph nodes. Pelvic organs: Unremarkable Osseous structures: Degenerative changes of the lumbosacral spine and facet arthropathy present. Impression: 1. Bilateral basal pleural effusions atelectatic change and infiltrates right greater than left with pleural thickening in the left base. 2. Multiple hypodensities within the liver that suggest small cyst 3. Findings suspicious for possible apple core type lesion in the right colon just above the cecum cerebellum measures approximately 3.6 x 4.2 cm with soft tissue density present. Some thickening of the bowel wall extends to the hepatic flexure as well.. This area was nonopacified with contrast on the previous examination and this area was not otherwise delineated on the most recent study. 4. Extensive diverticular changes in the rectosigmoid colon and descending colonic segment. 5. 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 PROCEDURE INTERPRETED AT [facility] Final Report Signed by: Dr. Jamal Varela
[2017-02-16] MEDS: ASPIRIN EC 81 MG TABLET PO SCH (08:52)
[2017-02-16] MEDS: LORazepam 1 MG TABLET PO SCH (08:52)
[2017-02-16] MEDS: FLUCONAZOLE 100 MG TABLET PO SCH (08:53)
[2017-02-16] MEDS: DILTIAZEM CD 120 MG CAPSULE PO SCH (08:53)
[2017-02-16] MEDS: MULTIVITAMIN (CENTRUM) TABLET PO SCH (08:53)
[2017-02-16] MEDS: FUROSEMIDE 20 MG TABLET PO SCH (08:54)
[2017-02-16] MEDS: POTASSIUM CHLORIDE 20 MEQ TABLET PO SCH (08:54)
[2017-02-16] MEDS: THEOPHYLLINE ER (24 HR) 300 MG CAPSULE PO SCH (08:55)
[2017-02-16] MEDS: PANTOPRAZOLE 40 MG TABLET PO SCH (08:55)
[2017-02-16] MEDS: CETIRIZINE 10 MG TABLET PO SCH (08:55)
[2017-02-16] MEDS: BUDESONIDE/FORMOTEROL 160-4.5 INHALER 6 GM INH SCH ×2 (08:56→20:34)
[2017-02-16] MEDS: SODIUM CHLORIDE 0.9% 1,000 ML IV SCH ×2 (09:38→19:38)
--- NOTE | 2017-02-16 09:40 | Gastrointestinal Progress Note ---
Assessment and Plan (1) Anemia Status: Acute Assessment and plan: 02/16-H&H is stable without overt bleeding. Findings of colonoscopy on yesterday of right colon lesion as well as CT findings noted as below. CEA level noted. Plan an addendum to followed by Dr. Mitchell. Current Visit: Yes Gastroenterology - PN: Subj Interval history: CC: Anemia Patient is seen awake and alert lying in bed. States he is not feeling well today however nonspecific with his complaints other than just generally not feeling well. C scope on yesterday noted to find the proximal ascending colon mass consistent with carcinoma. He had a CT scan of the abdomen this morning with contrast which showed possible apple core type lesion in the right colon above the cecum measuring 3.6 x 4.2 cm with soft tissue density present as well as thickening of bowel wall extending into the hepatic flexure. Abdomen is soft , nontender. His CEA level is noted at 4.2. H&H is at 8.1/24 today without overt bleeding reported. ROS: Denies shortness breath or chest pain Exam (Progress Note) - Constitutional Vitals: Period Temp Pulse Resp BP Sys/Finney Pulse Ox Last 24 Hr 97.0 F-98.8 F 67-114 13-20 95-156/40-86 18-99 - Other Additional findings: General appearance: normal weight, no acute distress - Head Head exam: Present: normal inspection, normocephalic - Eye Eye exam: Present: other (Lids and conjunctivae are unremarkable). Absent: scleral icterus - ENT ENT exam: Present: normal exam, normal oropharynx - Neck Neck exam: Present: normal inspection - Respiratory Respiratory exam: Present: clear to auscultation bilaterally. Absent: rales, rhonchi, wheezes - Cardiovascular Cardiovascular exam: Present: regular rate and rhythm. Absent: diastolic murmur , JVD, systolic murmur - GI/Abdominal GI/Abdominal exam: Present: normal bowel sounds, soft. Absent: ascites, distended, mass, organomegaly, tenderness - Extremities Exam Extremities exam: Present: normal inspection, full ROM - Back Exam Back exam: Present: normal inspection - Neurological Exam Neurological exam: Present: alert, oriented X3 - Psychiatric Psychiatric exam: Present: normal affect, normal mood - Skin Skin exam: Present: normal color, warm, dry Results - Labs CBC & BMP: 02/16/17 06:06 02/16/17 06:06 Lab Results: I have reviewed the past 24 hour labs - Diagnostic Findings Procedure: CT Abdomen and Pelvis: report reviewed by me
--- NOTE | 2017-02-16 10:27 | Hospitalist Progress Note ---
Assessment and Plan (1) Hypokalemia Status: Acute Assessment and plan: His potassium is 3.6 today. Current Visit: Yes (2) History of esophageal cancer Status: Chronic Assessment and plan: There was no evidence of recurrent esophageal cancer by EGD. Current Visit: No (3) COPD (chronic obstructive pulmonary disease) Status: Acute Assessment and plan: He appears stable. He is not experiencing any respiratory difficulties. Current Visit: No (4) Hypocalcemia Status: Acute Assessment and plan: His calcium today is 7.1. Current Visit: Yes (5) AVM (arteriovenous malformation) Status: Acute Assessment and plan: Patient underwent successful heater probe coagulation of bleeding esophageal AVMs. Current Visit: Yes (6) GI bleed Status: Acute Assessment and plan: Patient is status post GI bleed due to bleeding AVMs of the esophagus. He underwent successful heater probe coagulation. Colonoscopy demonstrated a right -sided colon cancer with no evidence of active bleeding. He does not report any evidence of overt bleeding at the present time. His hematocrit and hemoglobin are stable at 24.0 and 8.1 respectively. Current Visit: Yes (7) Anemia Status: Acute Assessment and plan: His hematocrit and hemoglobin today are 24.0 and 8.1 respectively. They were 24.5 and 8.4 respectively yesterday. 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 He is presently still being evaluated by gastroenterology. I will consult oncology. 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 Colonoscopy and a CT scan of the abdomen demonstrated a possible apple core type lesion in the right colon above the cecum measuring 3.6 x 4.2 cm with soft tissue density present and thickening of the bowel wall extending into the hepatic flexure. His CEA A level is elevated to 4.2. His hematocrit and hemoglobin today are 24.0 and 8.1 respectively without evidence of overt bleeding. I await further recommendations from gastroenterology. I will consult oncology. Exam - Constitutional Vitals: Period Temp Pulse Resp BP Sys/Finney Pulse Ox Last 24 Hr 97.0 F-98.8 F 67-114 13-20 95-156/40-86 18-99 General appearance: no acute distress - Head Head exam: Present: normal inspection - Neck Neck exam: Present: normal inspection - Respiratory Respiratory exam: Present: clear to auscultation bilaterally - Cardiovascular Cardiovascular exam: Present: regular rate and rhythm - GI/Abdominal GI/Abdominal exam: Present: normal bowel sounds, soft, other (Nontender with no palpable masses or hepatosplenomegaly.) - Extremities Exam Extremities exam: Present: normal inspection - Neurological Exam Neurological exam: Present: alert, oriented X3 - Psychiatric Psychiatric exam: Present: normal affect - Skin Skin exam: Present: normal color, warm, intact Results - Labs CBC & BMP: 02/16/17 06:06 02/16/17 06:06
[2017-02-16] MEDS: metroNIDAZOLE INJ 500 MG in PREMIX 1 EACH IV SCH ×2 (10:47→20:33)
--- NOTE | 2017-02-16 11:24 | Pathology Report from [facility] ---
[facility] ACCESSION # : [id number] PATIENT NAME : Jane Alfaro ORDERING DR : MOJGAN MONTAÑO MD CLINICAL HX: Diarrhea POST-OP DX: Same SPECIMEN INFO: #1 Colon polyp #2 BX ileocecal valve GROSS DESCRIPTION: #1 Received in formalin labeled with the patients name JANE ALFARO and #1 consists of a 0.7 x 0.3 cm aggregate of tissue and colonic debris. Submitted in cassette #1.#2 Received in formalin labeled with the patients name JANE ALFARO and #2 consists of a 0.5 x 0.5 cm aggregate of bowie tissue. Submitted in cassette #2. DIAGNOSIS FOR JANE ALFARO: #1 TRANSVERSE COLON, BIOPSIES: Tubular adenoma.# 2 COLON AT ILEOCECAL VALVE, BIOPSIES: Invasive adenocarcinoma, moderately- differentiated. COLLECTED DATE: 02/15/2017 [facility] REPORT DATE: 02/16/2017 ELECTRONICALLY SIGNED BY: Tera Diaz M.D. 02/16/2017 - 10:31:55 [facility]
[2017-02-16] MEDS: DIGOXIN 0.125 MG TABLET PO SCH (13:28)
--- NOTE | 2017-02-16 14:17 | Oncology Progress Note ---
Oncology Subjective PN Interval history: Patient seen and examined briefly today. He has not been seen by me in approximately 2 years. He was successfully treated for esophageal cancer several years ago. It is my understanding there is no evidence of local recurrence on recent EGD. He was admitted with colon obstruction and has an invasive adenocarcinoma within the right colon from recent colonoscopy. His past medical history is pertinent primarily for COPD. He has seen Dr. Boudreaux in the past. His CT scan shows no obvious hepatic metastatic disease. I believe we should proceed with surgical evaluation Exam - Constitutional Vitals: Period Temp Pulse Resp BP Sys/Finney Pulse Ox Last 24 Hr 97.0 F-98.8 F 67-114 16-20 95-156/40-86 18-99 Results - Labs CBC & BMP: 02/16/17 06:06 02/16/17 06:06
--- NOTE | 2017-02-16 14:46 | General Surgery Consult Note ---
Assessment and Plan - Time spent with patient Time spent with patient: Less than 30 minutes (1) Colon cancer Status: Acute Assessment and plan: He has a large colon cancer which is becoming symptomatic. I had a long discussion with the patient regarding surgical resection of this which will be a major procedure. Obviously he is not a great surgical candidate and has significant comorbidities including COPD which is followed by Dr. Boudreaux and also peripheral vascular disease. He has had a previous femoral to femoral bypass years ago. He is functional and ambulates around the house cannot walk a city block before a flight of stairs without having to stop because of shortness of breath. Obviously all of these factors will increase his risk of perioperative I can discuss this with Dr. Boudreaux to see what he feels like his perioperative risk would be unfortunately we do not have good options for treatment of his colon cancer. He is probably starting to develop some symptoms at this point and is near obstructive. Current Visit: Yes Qualifiers: Colon location: ascending Qualified Code(s): C18.2 - Malignant neoplasm of ascending colon History of Present Illness Chief complaint: Colon cancer History of present illness: Mr. Ambrosio is a 89 year old male Who is admitted with near obstructing colon cancer symptoms in his right colon. He actually had a known small cancer in this location but was being treated for esophageal cancer he did not have operative therapy at that time and was treated with chemotherapy and radiation. He has done surprisingly well following this and now has had problems with local progression of his cancer. He has had some vague discomfort and cramping in his right side of his abdomen. He denies passage of blood. He says that he has had some weight loss. He had colonoscopy showing a large tumor in his ascending colon near the ileocecal valve and this is confirmed on CT scan. It does not show obvious metastatic disease. Home Medications Medication Instructions Recorded Confirmed Type Albuterol Neb [Proventil Neb] 0.63 mg INH Q6HR 02/06/17 02/10/17 History Apixaban [Eliquis] 2.5 mg PO BID 02/06/17 02/10/17 History Aspirin [Ecotrin] 81 mg PO DAILY 02/06/17 02/10/17 History Budesonide/Formoterol 160-4.5 2 puff INH BID 02/06/17 02/10/17 History [Symbicort 160-4.5] Cetirizine Tab [ZyrTEC Tab] 10 mg PO DAILY 02/06/17 02/10/17 History Digoxin 125 mcg PO DAILY 02/06/17 02/10/17 History Docusate Sodium [Colace] 100 mg PO QPM 02/06/17 02/10/17 History Donepezil HCl 10 mg PO DAILY 02/06/17 02/10/17 History Flecainide [Tambocor] 100 mg PO BID 02/06/17 02/10/17 History Furosemide 20 mg PO DAILY 02/06/17 02/10/17 History HYDROcodone/ACETAMIN 5-325 [[place] 1 tablet PO Q6HR PRN 02/06/17 02/10/17 History 5-325] HydrOXYzine PAMOATE CAP [Vistaril 25 mg PO QPM 02/06/17 02/10/17 History Cap] LORazepam TAB [Ativan Tab] 1 mg PO DAILY 02/06/17 02/10/17 History Multivitamin [One Daily 1 tablet PO DAILY 02/06/17 02/10/17 History Multivitamin] Omeprazole [Prilosec] 20 mg PO DAILY 02/06/17 02/10/17 History Potassium Chloride 10 meq PO DAILY 02/06/17 02/10/17 History Simvastatin [Zocor] 10 mg PO DAILY 02/06/17 02/10/17 History Theophylline ER Cap (24 Hr) 300 mg PO DAILY 02/06/17 02/10/17 History [Tor-24] Tiotropium Inhalation [Spiriva 18 mcg INH DAILY 02/06/17 02/10/17 History Handihaler] dilTIAZem HCl [Diltiazem HCl] 120 mg PO DAILY 02/06/17 02/10/17 History Prochlorperazine Tab [Compazine 10 mg PO BID PRN tablet 02/09/17 02/10/17 Rx Tab] Allergies Allergy/AdvReac Type Severity Reaction Status Date / Time latex Allergy Intermediate ITCHING Verified 10/22/14 23:27 Cephalosporins Allergy Verified 02/06/17 16:22 meperidine [From Demerol] Allergy Verified 02/06/17 15:53 Medical,Surgical,& Family Hx - Medical History Cardio: History of: Cardiac Dysrhythmia (a fib), Hypertension No history of: Aneurysm, Cerebrovascular Disease, Congenital Heart Disease, CHF, CAD, HI, Pacemaker, PVD, Valvular Heart Disease, Cardiovascular Problems Psychological: History of: Anxiety Disorders (post traumatic stress disorder) No history of: ADHD, Behavior Problems, Bipolar Disorder, Depression, Previous Suicide Attempt, Psychiatric/Substance Abuse Tx, Schizophrenia, Violent Behavior, Psychiatric Problems Neurology: No history of: Brain Aneurysm, Cerebral Hemorrhage, Cerebrovascular Accident , Cerebral Palsy, Dementia, Migraine, Multiple Sclerosis, Parkinson's Disease, Peripheral Neuropathy, Seizures, TIA, Vertigo, Neurologocal Cancer HEENT: History of: Eye Problem (cataract) No history of: Ear Problem, Dental Problems, Glaucoma, Oral Cancer, HEENT Problems Endocrine: History of: Dyslipidemia No history of: Adrenal Disease, Diabetes Mellitus (IDDM), Diabetes Mellitus ( NIDDM), Thyroid Disorder, Endocrine Cancer, Endocrine Problems Rheumatology: History of;: Rheumatological Problems No history of;: Fibromyalgia, Gout, Myasthenia Gravis, Psoriasis, Rheumatoid Arthritis, Sjogrens, Systemic Lupus Erythematosus Respiratory: History of: Bronchitis (chronic), COPD, Intubation, Pneumonia No history of: Asthma, Obstructive Sleep Apnea, Pulmonary Embolism, Pulmonary Hypertension, Lung Cancer, Respiratory Problems Renal: No history of: Renal (Kidney) Cancer, Dialysis, Renal Failure, Renal Problems Genitourinary: No history of: Bladder Problem, Kidney Stones, Prostate Problems, Recurring Urinary Tract Infections, Genitourinary Cancer, Problems Gastrointestinal: History of: GERD, Polyps, Gastrointestinal Cancer (esophageal) No history of: Bowel Obstruction, Clostridium Difficile, Crohn's Disease, Diverticulitis/ Diverticulosis, Esophageal Varices, Gastrointestinal Bleed, Hemorrhoids, Hematochezia, Hepatitis, Liver Problems, Pancreatitis, Ulcerative Colitis, GI Problems Musculoskeletal: History of: Musculoskeletal Problems (right knee injury in [place] 1950) No history of: Amputation, Back/Neck Problems, Degenerative Disk Disease, Herniated Disk, Osteoporosis, Musculoskeletal Cancer Hematology: No history of: Anemia, Blood Transfusion Reaction, Bleeding Problems, Clotting Problems, Sickle Cell Disease, Hematologic Cancer, Blood Disorders Reproductive: No histroy: Penile Disorder, Sexually Transmitted Disease, Reproductive Cancer, Reproductive Problems Other: History of: Cancer (ESOPHAGEAL) No history of: Anesthesia Reactions, Anaphylaxis, Eczema, HIV, Malignant Hyperthermia, MRSA, Vancomycin-Resistant Enterococci, Skin Problems, Miscellaneous Medical Problems - Surgical History Cardiac Surgeries: Sugical HX of: Femoral-Popliteal Bypass Graft, Vascular Access Devices (mediport) Patient Denies: Cardiac Catheterization, Cardiac Surgery, Carotid Endarterectomy, Internal Defibrillator Thoracic Surgeries: Patient denies;: Kidney (Renal Surgery), Lithotripsy, Nephrectomy, Organ Transplant, Lobectomy Neurologic Surgeries: Patient denies: Brain Aneurysm, Cerebral Hemorrhage, Neurologic Surgery HEENT Surgeries: Surgical HX of: Eye Surgery (cataract), Tonsilectomy & Adenoidectomy Patient denies: Carotid Endarterectomy, Thyroid Surgery Abdominal Surgeries: Surgical HX of: Abdominal Surgery, Appendectomy, Cholecystectomy, Colonoscopy, EGD Patient denies: Gastric Bypass Surgery, Hernia Repair, Splenectomy Reproductive Surgeries: Patient denies;: Breast Surgery, Cystoscopy, Genitourinary Surgery, Prostate Surgery, Vasectomy Orthopedic Surgeries: Surgical HX of;: Implanted Devices (MEDIPORT) Patient denies;: Orthopedic Surgery, Spinal Surgery, Total Hip Replacement, Total Knee Replacement - Family History Family History: Reports;: Family Cancer (SISTER), Family Heart Disease (dad), Family Stroke (mom) Denies;: Family Anesthesia Reaction, Family Diabetes, Family Hypertension, Family Psychiatric Problems - Social History Smoking Status: Former smoker Frequency of Alcohol Use: None Type of Drug Use: None - Constitutional Constitutional: Present: weakness, weight loss. Absent: anorexia, chills, fever (s) - Cardiovascular Cardiovascular: Present: dyspnea on exertion. Absent: chest pain at rest, chest pain with activity, dyspnea, syncope - Respiratory Respiratory: Present: dyspnea on exertion. Absent: cough, dyspnea, hemoptysis, wheezing - Gastrointestinal Gastrointestinal: Present: bloating, change in bowel habits. Absent: abdominal pain, hematemesis, hematochezia, melena, nausea, vomiting, jaundice - Genitourinary Genitourinary: Absent: hematuria - Musculoskeletal Musculoskeletal: Absent: back pain - Neurological Neurological: Absent: focal weakness, syncope - Endocrine Endocrine: Absent: polyuria Hematologic/Lymphatic: Absent: easy bleeding, easy bruising Exam - Constitutional Vitals: Period Temp Pulse Resp BP Sys/Finney Pulse Ox Last 24 Hr 97.0 F-98.8 F 67-114 16-20 95-156/40-86 18-99 General appearance: no acute distress - Head Head exam: Present: normocephalic - Eye Eye exam: Absent: scleral icterus - ENT Mouth exam: Present: normal voice - Neck Neck exam: Present: trachea midline - Respiratory Respiratory exam: Present: clear to auscultation bilaterally. Absent: accessory muscle use - Cardiovascular Cardiovascular exam: Present: RRR - GI/Abdominal GI/Abdominal exam: Present: normal bowel sounds, soft. Absent: distended, guarding, mass, tenderness, rebound - Extremities Exam Extremities exam: Absent: edema - Back Exam Back exam: Present: normal inspection - Neurological Exam Neurological exam: Present: alert, oriented X3. Absent: motor sensory deficit Speech: Present: normal - Skin Skin exam: Present: normal color Results - Labs CBC & BMP: 02/16/17 06:06 02/16/17 06:06 Lab Results: I have reviewed the past 24 hour labs - Diagnostic Findings Procedure: CT Abdomen and Pelvis: report reviewed by me
[2017-02-16] MEDS: DOCUSATE SODIUM 100 MG CAPSULE PO SCH (20:33)
[2017-02-16] MEDS: SIMVASTATIN 10 MG TABLET PO SCH (20:33)
[2017-02-17] MEDS: ALBUTEROL/IPRATROPIUM 3 ML NEB RESP TX SCH ×4 (01:06→19:34)
[2017-02-17 05:26] LABS: Basophils % 0.3 % (0.0-0.8); Eosinophils # 0.2 10*3/uL (0.0-0.87); Eosinophils % 1.8 % (0.00-10.9); Hemoglobin 7.8 GM/DL (14.0-18.0); Immature Granulocytes % 0.5 %; Immature Granulocytes Absolute 0.05 #; Lymphocytes # 1.1 10*3/uL (1.4-4.0); Lymphocytes % 11.2 % (21.2-54.2); Mean Corpuscular HGB Conc 33.9 GM/DL (32-36); Mean Corpuscular Hemoglobin 28 PG (27-34); Mean Corpuscular Volume 82.4 FL (87-102); Mean Platelet Volume 9.2 FL (9.6-12.0); Monocytes # 1.1 10*3/uL (0.11-0.8); Monocytes % 11.2 % (1.7-12.7); Neutrophils # 7.2 10*3/uL (1.4-7.4); Platelet Count 277 T/CUMM (130-400); Red Blood Count 2.79 MC/CUMM (3.8-5.5); Red Cell Distribution Width 16.1 % (9.3-17.3); White Blood Count 9.5 T/CUMM (4-12)
[2017-02-17 06:04] LABS: Calcium 7.1 MG/DL (8.5-10.1); Osmolality,Calculated 281.1 MOS/KG (273-304); Potassium 3.5 MMOL/L (3.5-5.1)
[2017-02-17] MEDS: SODIUM CHLORIDE 0.9% 1,000 ML IV SCH ×2 (07:23→22:47)
[2017-02-17] MEDS: FLUCONAZOLE 100 MG TABLET PO SCH (09:51)
[2017-02-17] MEDS: DILTIAZEM CD 120 MG CAPSULE PO SCH (09:51)
[2017-02-17] MEDS: POTASSIUM CHLORIDE 20 MEQ TABLET PO SCH (09:51)
[2017-02-17] MEDS: THEOPHYLLINE ER (24 HR) 300 MG CAPSULE PO SCH (09:52)
[2017-02-17] MEDS: CETIRIZINE 10 MG TABLET PO SCH (09:52)
[2017-02-17] MEDS: MULTIVITAMIN (CENTRUM) TABLET PO SCH (09:52)
[2017-02-17] MEDS: FUROSEMIDE 20 MG TABLET PO SCH (09:53)
[2017-02-17] MEDS: ASPIRIN EC 81 MG TABLET PO SCH (09:53)
[2017-02-17] MEDS: LORazepam 1 MG TABLET PO SCH (09:53)
[2017-02-17] MEDS: metroNIDAZOLE INJ 500 MG in PREMIX 1 EACH IV SCH ×2 (09:57→22:46)
[2017-02-17] MEDS: BUDESONIDE/FORMOTEROL 160-4.5 INHALER 6 GM INH SCH ×2 (09:57→20:44)
--- NOTE | 2017-02-17 10:20 | Hospitalist Progress Note ---
Assessment and Plan (1) Hypokalemia Status: Acute Assessment and plan: His potassium is 3.5 today. Current Visit: Yes (2) History of esophageal cancer Status: Chronic Assessment and plan: There was no evidence of recurrent esophageal cancer by EGD. Current Visit: No (3) COPD (chronic obstructive pulmonary disease) Status: Acute Assessment and plan: He appears stable. He is not experiencing any respiratory difficulties. Current Visit: No (4) Hypocalcemia Status: Acute Assessment and plan: His calcium today is 7.1. Current Visit: Yes (5) AVM (arteriovenous malformation) Status: Acute Assessment and plan: Patient underwent successful heater probe coagulation of bleeding esophageal AVMs. Current Visit: Yes (6) GI bleed Status: Acute Assessment and plan: Patient is status post GI bleed due to bleeding AVMs of the esophagus. He underwent successful heater probe coagulation. Colonoscopy demonstrated a right -sided colon cancer with no evidence of active bleeding. He does not report any evidence of overt bleeding at the present time. His hematocrit and hemoglobin are stable at 24.0 and 8.1 respectively. Current Visit: Yes (7) Anemia Status: Acute Assessment and plan: His hematocrit and hemoglobin today are 23.0 and 7.8 respectively. They were 24.5 and 8.4 respectively yesterday. We will transfuse him 2 units of packed red blood cells today. Current Visit: Yes Qualifiers: Iron deficiency anemia type: chronic blood loss (8) Colon cancer Status: Acute Assessment and plan: As noted above, he has been seen in consultation by surgery and oncology. Patient recognizes that he would be an extremely high surgical risk, but wishes to proceed in any event. Current Visit: Yes Qualifiers: Colon location: ascending Qualified Code(s): C18.2 - Malignant neoplasm of ascending colon Hospitalist: Subjective Interval history: Patient has no new complaints. He was seen yesterday in consultation by oncology and surgery. He wishes to proceed with colon resection. Exam - Constitutional Vitals: Period Temp Pulse Resp BP Sys/Finney Pulse Ox Last 24 Hr 97.3 F-98.3 F 73-114 18-24 102-118/57-81 91-100 General appearance: no acute distress - Head Head exam: Present: normal inspection - Neck Neck exam: Present: normal inspection - Respiratory Respiratory exam: Present: clear to auscultation bilaterally - Cardiovascular Cardiovascular exam: Present: regular rate and rhythm - GI/Abdominal GI/Abdominal exam: Present: normal bowel sounds, soft, other - Extremities Exam Extremities exam: Present: normal inspection - Neurological Exam Neurological exam: Present: alert, oriented X3 - Skin Skin exam: Present: normal color, warm, intact Results - Labs CBC & BMP: 02/17/17 05:04 02/17/17 05:04
[2017-02-17] MEDS ORDERED: SODIUM CHLORIDE 0.9% 250 ML IV PRN ×2 (10:31→14:37)
--- NOTE | 2017-02-17 10:52 | General Surgery Progress Note ---
Assessment and Plan (1) Colon cancer Status: Acute Assessment and plan: He has a large colon cancer which is becoming symptomatic. I had a long discussion with the patient regarding surgical resection of this which will be a major procedure. Obviously he is not a great surgical candidate and has significant comorbidities including COPD which is followed by Dr. Boudreaux and also peripheral vascular disease. He has had a previous femoral to femoral bypass years ago. He is functional and ambulates around the house cannot walk a city block before a flight of stairs without having to stop because of shortness of breath. Obviously all of these factors will increase his risk of perioperative I can discuss this with Dr. Boudreaux to see what he feels like his perioperative risk would be unfortunately we do not have good options for treatment of his colon cancer. He is probably starting to develop some symptoms at this point and is near obstructive. 02/17: Patient feels well this morning. He seems like he is doing better than yesterday. He wants to see Dr. Boudreaux on Sunday prior to surgery. He understands that he really has no good option other than surgery. I think that he will fully obstruct his small bowel soon. He understands that the risk of surgery in his case will be extremely high. Current Visit: Yes Qualifiers: Colon location: ascending Qualified Code(s): C18.2 - Malignant neoplasm of ascending colon Subjective Patient reports: Present: feels better. Absent: still having pain, nausea, vomiting Exam - Constitutional Vitals: Period Temp Pulse Resp BP Sys/Finney Pulse Ox Last 24 Hr 97.3 F-98.3 F 73-114 18-24 102-120/56-81 91-100 General appearance: no acute distress - Respiratory Respiratory exam: Absent: accessory muscle use - GI/Abdominal GI/Abdominal exam: Present: soft. Absent: distended, tenderness Results - Labs CBC & BMP: 02/17/17 05:04 02/17/17 05:04 Lab Results: I have reviewed the past 24 hour labs
[2017-02-17] MEDS: PANTOPRAZOLE 40 MG TABLET PO SCH (14:26)
[2017-02-17] MEDS: DIGOXIN 0.125 MG TABLET PO SCH (14:26)
[2017-02-17] MEDS: DOCUSATE SODIUM 100 MG CAPSULE PO SCH (20:44)
[2017-02-17] MEDS: SIMVASTATIN 10 MG TABLET PO SCH (20:44)
[2017-02-18 00:29] LABS: Hematocrit 28.3 VOL% (42.0-52.0); Hemoglobin 9.6 GM/DL (14.0-18.0)
[2017-02-18] MEDS: ALBUTEROL/IPRATROPIUM 3 ML NEB RESP TX SCH ×5 (05:12→23:30)
[2017-02-18 05:53] LABS: Basophils # 0.1 10*3/uL (0.0-0.2); Basophils % 0.7 % (0.0-0.8); Eosinophils # 0.4 10*3/uL (0.0-0.87); Hematocrit 29.4 VOL% (42.0-52.0); Immature Granulocytes % 0.5 %; Immature Granulocytes Absolute 0.05 #; Lymphocytes # 1.3 10*3/uL (1.4-4.0); Mean Corpuscular Hemoglobin 28 PG (27-34); Mean Corpuscular Volume 82.4 FL (87-102); Mean Platelet Volume 9.6 FL (9.6-12.0); Monocytes # 0.9 10*3/uL (0.11-0.8); Monocytes % 10.1 % (1.7-12.7); Neutrophils # 6.5 10*3/uL (1.4-7.4); Neutrophils % 70.7 % (38.7-73.9); Platelet Count 280 T/CUMM (130-400); Red Blood Count 3.57 MC/CUMM (3.8-5.5); Red Cell Distribution Width 15.9 % (9.3-17.3); White Blood Count 9.2 T/CUMM (4-12)
[2017-02-18 06:27] LABS: Calcium 7.4 MG/DL (8.5-10.1); Potassium 3.6 MMOL/L (3.5-5.1)
[2017-02-18] MEDS: PANTOPRAZOLE 40 MG TABLET PO SCH (09:33)
[2017-02-18] MEDS: ASPIRIN EC 81 MG TABLET PO SCH (09:33)
[2017-02-18] MEDS: FUROSEMIDE 20 MG TABLET PO SCH (09:33)
[2017-02-18] MEDS: LORazepam 1 MG TABLET PO SCH (09:33)
[2017-02-18] MEDS: FLUCONAZOLE 100 MG TABLET PO SCH (09:34)
[2017-02-18] MEDS: MULTIVITAMIN (CENTRUM) TABLET PO SCH (09:34)
[2017-02-18] MEDS: DILTIAZEM CD 120 MG CAPSULE PO SCH (09:34)
[2017-02-18] MEDS: THEOPHYLLINE ER (24 HR) 300 MG CAPSULE PO SCH (09:34)
[2017-02-18] MEDS: POTASSIUM CHLORIDE 20 MEQ TABLET PO SCH (09:35)
[2017-02-18] MEDS: CETIRIZINE 10 MG TABLET PO SCH (09:35)
[2017-02-18] MEDS: SODIUM CHLORIDE 0.9% 1,000 ML IV SCH ×2 (09:39→20:56)
[2017-02-18] MEDS: metroNIDAZOLE INJ 500 MG in PREMIX 1 EACH IV SCH ×2 (09:41→20:55)
[2017-02-18] MEDS: BUDESONIDE/FORMOTEROL 160-4.5 INHALER 6 GM INH SCH ×2 (09:43→20:57)
--- NOTE | 2017-02-18 10:02 | Hospitalist Progress Note ---
Assessment and Plan (1) Hypokalemia Status: Acute Assessment and plan: His potassium is 3.5 today. Current Visit: Yes (2) History of esophageal cancer Status: Chronic Assessment and plan: There was no evidence of recurrent esophageal cancer by EGD. Current Visit: No (3) COPD (chronic obstructive pulmonary disease) Status: Acute Assessment and plan: He appears stable. He is not experiencing any respiratory difficulties. Current Visit: No (4) Hypocalcemia Status: Acute Assessment and plan: His calcium today is 7.1. Current Visit: Yes (5) AVM (arteriovenous malformation) Status: Acute Assessment and plan: Patient underwent successful heater probe coagulation of bleeding esophageal AVMs. Current Visit: Yes (6) GI bleed Status: Acute Assessment and plan: Patient is status post GI bleed due to bleeding AVMs of the esophagus. He underwent successful heater probe coagulation. Colonoscopy demonstrated a right -sided colon cancer with no evidence of active bleeding. He does not report any evidence of overt bleeding at the present time. His hematocrit and hemoglobin are stable at 24.0 and 8.1 respectively. Current Visit: Yes (7) Anemia Status: Acute Assessment and plan: His hematocrit and hemoglobin today are 23.0 and 7.8 respectively. They were 24.5 and 8.4 respectively yesterday. We will transfuse him 2 units of packed red blood cells today. Current Visit: Yes Qualifiers: Iron deficiency anemia type: chronic blood loss (8) Colon cancer Status: Acute Assessment and plan: As noted above, he has been seen in consultation by surgery and oncology. Patient recognizes that he would be an extremely high surgical risk, but wishes to proceed in any event. Current Visit: Yes Qualifiers: Colon location: ascending Qualified Code(s): C18.2 - Malignant neoplasm of ascending colon Hospitalist: Subjective Interval history: Patient has no new complaints yesterday and he has been seen in consultation by oncology and surgery. He wishes to proceed with colon resection. Exam - Constitutional Vitals: Period Temp Pulse Resp BP Sys/Finney Pulse Ox Last 24 Hr 97.5 F-98.6 F 62-124 16-20 94-142/44-101 92-99 General appearance: no acute distress - Head Head exam: Present: normal inspection - Neck Neck exam: Present: normal inspection - Respiratory Respiratory exam: Present: clear to auscultation bilaterally - Cardiovascular Cardiovascular exam: Present: regular rate and rhythm - GI/Abdominal GI/Abdominal exam: Present: normal bowel sounds, soft, other (Nontender with no palpable masses or hepatosplenomegaly.) - Extremities Exam Extremities exam: Present: normal inspection - Skin Skin exam: Present: normal color, warm, intact Results - Labs CBC & BMP: 02/18/17 04:20 02/18/17 04:20
[2017-02-18] MEDS ORDERED: CLINDAMYCIN INJ 900 MG in PREMIX 1 EACH IV ONE (11:56)
--- NOTE | 2017-02-18 11:56 | General Surgery Progress Note ---
Assessment and Plan (1) Colon cancer Status: Acute Assessment and plan: He has a large colon cancer which is becoming symptomatic. I had a long discussion with the patient regarding surgical resection of this which will be a major procedure. Obviously he is not a great surgical candidate and has significant comorbidities including COPD which is followed by Dr. Boudreaux and also peripheral vascular disease. He has had a previous femoral to femoral bypass years ago. He is functional and ambulates around the house cannot walk a city block before a flight of stairs without having to stop because of shortness of breath. Obviously all of these factors will increase his risk of perioperative I can discuss this with Dr. Boudreaux to see what he feels like his perioperative risk would be unfortunately we do not have good options for treatment of his colon cancer. He is probably starting to develop some symptoms at this point and is near obstructive. 02/17: Patient feels well this morning. He seems like he is doing better than yesterday. He wants to see Dr. Boudreaux on Sunday prior to surgery. He understands that he really has no good option other than surgery. I think that he will fully obstruct his small bowel soon. He understands that the risk of surgery in his case will be extremely high. 02/18: He has had some cramping and a feeling of a mass in his right lower quadrant. He has a near obstructing colon cancer. Obviously he is a very poor risk for surgery. He would locked like to talk to Dr. Boudreaux prior to having surgery. I discussed going ahead and putting him on the schedule for tomorrow and if Dr. Boudreaux feels that we need to delay the surgery we can. He understands that he is extremely high risk for morbidity and mortality considering his advanced age and comorbidities and debilitated state. He understands the risks of infection, bleeding, anastomotic leakage, abscesses, sepsis, injury to bowel or bladder, ostomy, etc. he also understands that he may not survive the surgery or postoperative. Current Visit: Yes Qualifiers: Colon location: ascending Qualified Code(s): C18.2 - Malignant neoplasm of ascending colon Subjective Patient reports: Present: no new complaints, nausea. Absent: vomiting, shortness of breath Exam - Constitutional Vitals: Period Temp Pulse Resp BP Sys/Finney Pulse Ox Last 24 Hr 97.5 F-98.6 F 62-124 16-20 94-142/44-101 92-99 General appearance: no acute distress - Respiratory Respiratory exam: Absent: accessory muscle use - GI/Abdominal GI/Abdominal exam: Present: mass, soft. Absent: distended, tenderness, rebound Results - Labs CBC & BMP: 02/18/17 04:20 02/18/17 04:20 Lab Results: I have reviewed the past 24 hour labs
[2017-02-18] MEDS ORDERED: MAGNESIUM HYDROXIDE SUSP 30 ML UDCUP PO PRN (12:29)
[2017-02-18] MEDS: DIGOXIN 0.125 MG TABLET PO SCH (12:50)
[2017-02-18] MEDS: SIMVASTATIN 10 MG TABLET PO SCH (20:55)
[2017-02-18] MEDS: DOCUSATE SODIUM 100 MG CAPSULE PO SCH (20:55)
[2017-02-19] MEDS ORDERED: SIMETHICONE CHEW 125 MG TABLET PO PRN (02:06)
[2017-02-19] MEDS: ONDANSETRON 4 MG/2 ML VIAL IV PRN ×2 (02:30→05:57)
[2017-02-19] MEDS: SODIUM CHLORIDE 0.9% 1,000 ML IV SCH (08:02)
[2017-02-19] MEDS: metroNIDAZOLE INJ 500 MG in PREMIX 1 EACH IV SCH ×2 (08:03→15:28)
[2017-02-19] MEDS: ALBUTEROL/IPRATROPIUM 3 ML NEB RESP TX SCH ×3 (08:16→19:48)
[2017-02-19] MEDS ORDERED: FUROSEMIDE 40 MG/4 ML VIAL IV ONE (08:18)
[2017-02-19] MEDS ORDERED: methylPREDNISolone SOD SUC 40 MG/1 ML VIAL IV ONE (08:18)
--- NOTE | 2017-02-19 08:22 | Pulmonology Consult Note ---
Assessment and Plan (1) Colon cancer Status: Acute Assessment and plan: He has near total obstruction with right colon cancer. Although he is at increased risk due to his underlying medical problems, agree with proceeding with surgery today. Patient has been a DO NOT RESUSCITATE in the past. I have had several discussions with him about this. This will need to be rescinded for his surgery but he does not want to be on prolonged life support. 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 Current Visit: No (4) Chronic atrial fibrillation Status: Chronic Assessment and plan: Continues on anticoagulant for atrial fibrillation. These will need to be held for surgery and started back postoperatively. Current Visit: No (5) COPD (chronic obstructive pulmonary disease) Status: Chronic Assessment and plan: Is not having any active exacerbation at present. Does have small pleural effusions probably from getting IV fluids while he is been n.p.o. Will bump with IV Lasix. Bump with Solu-Medrol preop. Current Visit: No History of Present Illness Chief complaint: Nausea vomiting abdominal pain History of present illness: Mr. Ambrosio is a 89 year old male who was found to have a right colon lesion. This was previously noted and observed due to multiple other medical problems including esophageal cancer. Esophageal cancer is felt to be in remission now. Patient has severe COPD. He was here recently with diarrhea and dehydration and hypotension. Rehydration improved his symptoms and he was eating well. Apparently went home and came back in 3 days later with vomiting and was found to have progression of the right colon lesion. He is set up for surgery this morning. At the present time he is not having any active flareup of his COPD. Home Medications Medication Instructions Recorded Confirmed Type Albuterol Neb [Proventil Neb] 0.63 mg INH Q6HR 02/06/17 02/10/17 History Apixaban [Eliquis] 2.5 mg PO BID 02/06/17 02/10/17 History Aspirin [Ecotrin] 81 mg PO DAILY 02/06/17 02/10/17 History Budesonide/Formoterol 160-4.5 2 puff INH BID 02/06/17 02/10/17 History [Symbicort 160-4.5] Cetirizine Tab [ZyrTEC Tab] 10 mg PO DAILY 02/06/17 02/10/17 History Digoxin 125 mcg PO DAILY 02/06/17 02/10/17 History Docusate Sodium [Colace] 100 mg PO QPM 02/06/17 02/10/17 History Donepezil HCl 10 mg PO DAILY 02/06/17 02/10/17 History Flecainide [Tambocor] 100 mg PO BID 02/06/17 02/10/17 History Furosemide 20 mg PO DAILY 02/06/17 02/10/17 History HYDROcodone/ACETAMIN 5-325 [Nicholson 1 tablet PO Q6HR PRN 02/06/17 02/10/17 History 5-325] HydrOXYzine PAMOATE CAP [Vistaril 25 mg PO QPM 02/06/17 02/10/17 History Cap] LORazepam TAB [Ativan Tab] 1 mg PO DAILY 02/06/17 02/10/17 History Multivitamin [One Daily 1 tablet PO DAILY 02/06/17 02/10/17 History Multivitamin] Omeprazole [Prilosec] 20 mg PO DAILY 02/06/17 02/10/17 History Potassium Chloride 10 meq PO DAILY 02/06/17 02/10/17 History Simvastatin [Zocor] 10 mg PO DAILY 02/06/17 02/10/17 History Theophylline ER Cap (24 Hr) 300 mg PO DAILY 02/06/17 02/10/17 History [Tor-24] Tiotropium Inhalation [Spiriva 18 mcg INH DAILY 02/06/17 02/10/17 History Handihaler] dilTIAZem HCl [Diltiazem HCl] 120 mg PO DAILY 02/06/17 02/10/17 History Prochlorperazine Tab [Compazine 10 mg PO BID PRN tablet 02/09/17 02/10/17 Rx Tab] Allergies Allergy/AdvReac Type Severity Reaction Status Date / Time latex Allergy Intermediate ITCHING Verified 10/22/14 23:27 Cephalosporins Allergy Verified 02/06/17 16:22 meperidine [From Demerol] Allergy Verified 02/06/17 15:53 12 point system: reviewed and no additional remarkable complaints except as stated - Constitutional Constitutional: Present: anorexia, malaise, weight loss - Cardiovascular Cardiovascular: Present: dyspnea, dyspnea on exertion - Respiratory Respiratory: Present: dyspnea, dyspnea on exertion - Gastrointestinal Gastrointestinal: Present: abdominal pain, nausea, vomiting Exam (Pulmonay) H&P - Constitutional Vitals: Period Temp Pulse Resp BP Sys/Finney Pulse Ox Last 24 Hr 97.4 F-98.1 F 81-136 16-20 94-142/58-92 91-99 Exam: Vital signs normal blood pressure 120/90. Pupils react to light. Throat is clear. Neck supple no bruits. Chest reveals a few basilar crackles. I do not hear any expiratory wheezes. Heart normal rate rhythm no murmurs. Abdomen is distended. Bowel sounds present. There is some mild direct tenderness. Extremities no clubbing cyanosis or edema. Calves nontender. Medical,Surgical,& Family Hx - Medical History Cardio: History of: Cardiac Dysrhythmia (a fib), Hypertension No history of: Aneurysm, Cerebrovascular Disease, Congenital Heart Disease, CHF, CAD, SC, Pacemaker, PVD, Valvular Heart Disease, Cardiovascular Problems Psychological: History of: Anxiety Disorders (post traumatic stress disorder) No history of: ADHD, Behavior Problems, Bipolar Disorder, Depression, Previous Suicide Attempt, Psychiatric/Substance Abuse Tx, Schizophrenia, Violent Behavior, Psychiatric Problems Neurology: No history of: Brain Aneurysm, Cerebral Hemorrhage, Cerebrovascular Accident , Cerebral Palsy, Dementia, Migraine, Multiple Sclerosis, Parkinson's Disease, Peripheral Neuropathy, Seizures, TIA, Vertigo, Neurologocal Cancer HEENT: History of: Eye Problem (cataract) No history of: Ear Problem, Dental Problems, Glaucoma, Oral Cancer, HEENT Problems Endocrine: History of: Dyslipidemia No history of: Adrenal Disease, Diabetes Mellitus (IDDM), Diabetes Mellitus ( NIDDM), Thyroid Disorder, Endocrine Cancer, Endocrine Problems Rheumatology: History of;: Rheumatological Problems No history of;: Fibromyalgia, Gout, Myasthenia Gravis, Psoriasis, Rheumatoid Arthritis, Sjogrens, Systemic Lupus Erythematosus Respiratory: History of: Bronchitis (chronic), COPD, Intubation, Pneumonia No history of: Asthma, Obstructive Sleep Apnea, Pulmonary Embolism, Pulmonary Hypertension, Lung Cancer, Respiratory Problems Renal: No history of: Renal (Kidney) Cancer, Dialysis, Renal Failure, Renal Problems Genitourinary: No history of: Bladder Problem, Kidney Stones, Prostate Problems, Recurring Urinary Tract Infections, Genitourinary Cancer, Problems Gastrointestinal: History of: GERD, Polyps, Gastrointestinal Cancer (esophageal) No history of: Bowel Obstruction, Clostridium Difficile, Crohn's Disease, Diverticulitis/ Diverticulosis, Esophageal Varices, Gastrointestinal Bleed, Hemorrhoids, Hematochezia, Hepatitis, Liver Problems, Pancreatitis, Ulcerative Colitis, GI Problems Musculoskeletal: History of: Musculoskeletal Problems (right knee injury in [place] 1950) No history of: Amputation, Back/Neck Problems, Degenerative Disk Disease, Herniated Disk, Osteoporosis, Musculoskeletal Cancer Hematology: No history of: Anemia, Blood Transfusion Reaction, Bleeding Problems, Clotting Problems, Sickle Cell Disease, Hematologic Cancer, Blood Disorders Reproductive: No histroy: Penile Disorder, Sexually Transmitted Disease, Reproductive Cancer, Reproductive Problems Other: History of: Cancer (ESOPHAGEAL) No history of: Anesthesia Reactions, Anaphylaxis, Eczema, HIV, Malignant Hyperthermia, MRSA, Vancomycin-Resistant Enterococci, Skin Problems, Miscellaneous Medical Problems - Surgical History Cardiac Surgeries: Sugical HX of: Femoral-Popliteal Bypass Graft, Vascular Access Devices (mediport) Patient Denies: Cardiac Catheterization, Cardiac Surgery, Carotid Endarterectomy, Internal Defibrillator Thoracic Surgeries: Patient denies;: Kidney (Renal Surgery), Lithotripsy, Nephrectomy, Organ Transplant, Lobectomy Neurologic Surgeries: Patient denies: Brain Aneurysm, Cerebral Hemorrhage, Neurologic Surgery HEENT Surgeries: Surgical HX of: Eye Surgery (cataract), Tonsilectomy & Adenoidectomy Patient denies: Carotid Endarterectomy, Thyroid Surgery Abdominal Surgeries: Surgical HX of: Abdominal Surgery, Appendectomy, Cholecystectomy, Colonoscopy, EGD Patient denies: Gastric Bypass Surgery, Hernia Repair, Splenectomy Reproductive Surgeries: Patient denies;: Breast Surgery, Cystoscopy, Genitourinary Surgery, Prostate Surgery, Vasectomy Orthopedic Surgeries: Surgical HX of;: Implanted Devices (MEDIPORT) Patient denies;: Orthopedic Surgery, Spinal Surgery, Total Hip Replacement, Total Knee Replacement - Family History Family History: Reports;: Family Cancer (SISTER), Family Heart Disease (dad), Family Stroke (mom) Denies;: Family Anesthesia Reaction, Family Diabetes, Family Hypertension, Family Psychiatric Problems - Social History Smoking Status: Former smoker Frequency of Alcohol Use: None Type of Drug Use: None Results - Labs CBC & BMP: 02/18/17 04:20 02/18/17 04:20 Lab Results: I have reviewed the past 24 hour labs - Diagnostic Findings Procedure: CT - chest: image reviewed by me (Small pleural effusions were noted on the abdominal CT.) Quality Measures - VTE Contraindication to Pharmacological VTE Prophylaxis: High Risk of Bleeding
[2017-02-19] MEDS ORDERED: TISSUE ADHESIVE 1 EACH APPLICATOR TOP ONE (08:38)
[2017-02-19] MEDS ORDERED: BUPIVACAINE 0.5% /EPI 10 ML VIAL ONE (08:38)
[2017-02-19] MEDS ORDERED: LIDOCAINE 1%/EPI INJ 20 ML VIAL ONE (08:39)
[2017-02-19] MEDS ORDERED: ONDANSETRON 4 MG/2 ML VIAL ONE ×2 (09:24→12:41)
[2017-02-19] MEDS ORDERED: ONDANSETRON 4 MG/2 ML VIAL IV ONE (09:29)
[2017-02-19] MEDS ORDERED: ROCURONIUM 100 MG/10 ML VIAL IV ONE (10:07)
[2017-02-19] MEDS ORDERED: ESMOLOL 100 MG/10 ML VIAL IV ONE (10:07)
[2017-02-19] MEDS ORDERED: PROPOFOL 200 MG/20 ML VIAL IV ONE (10:07)
[2017-02-19] MEDS ORDERED: PHENYLEPHRINE 1 MG/10 ML SYRINGE IV ONE (10:07)
[2017-02-19] MEDS ORDERED: LIDOCAINE 2% 5 ML VIAL ONE (10:07)
[2017-02-19] MEDS ORDERED: MICROFIBRILLAR COLLAGEN POWDER 1 GM CAN TOP ONE (11:14)
--- NOTE | 2017-02-19 11:26 | Hospitalist Progress Note ---
Assessment and Plan (1) Hypokalemia Status: Acute Assessment and plan: His potassium is 3.5 today. Current Visit: Yes (2) History of esophageal cancer Status: Chronic Assessment and plan: There was no evidence of recurrent esophageal cancer by EGD. Current Visit: No (3) COPD (chronic obstructive pulmonary disease) Status: Acute Assessment and plan: He appears stable. He is not experiencing any respiratory difficulties. Current Visit: No (4) Hypocalcemia Status: Acute Assessment and plan: His calcium today is 7.1. Current Visit: Yes (5) AVM (arteriovenous malformation) Status: Acute Assessment and plan: Patient underwent successful heater probe coagulation of bleeding esophageal AVMs. Current Visit: Yes (6) GI bleed Status: Acute Assessment and plan: Patient is status post GI bleed due to bleeding AVMs of the esophagus. He underwent successful heater probe coagulation. Colonoscopy demonstrated a right -sided colon cancer with no evidence of active bleeding. He does not report any evidence of overt bleeding at the present time. His hematocrit and hemoglobin are stable at 24.0 and 8.1 respectively. Current Visit: Yes (7) Anemia Status: Acute Assessment and plan: His hematocrit and hemoglobin today are 23.0 and 7.8 respectively. They were 24.5 and 8.4 respectively yesterday. We will transfuse him 2 units of packed red blood cells today. Current Visit: Yes Qualifiers: Iron deficiency anemia type: chronic blood loss (8) Colon cancer Status: Acute Assessment and plan: Patient is to undergo colon resection today.. Current Visit: Yes Qualifiers: Colon location: ascending Qualified Code(s): C18.2 - Malignant neoplasm of ascending colon Hospitalist: Subjective Interval history: Patient is stable today with no new complaints. He has been seen in consultation by Dr. Boudreaux of pulmonary. It is his opinion that the patient's pulmonary status is stable. Exam - Constitutional Vitals: Period Temp Pulse Resp BP Sys/Finney Pulse Ox Last 24 Hr 97.4 F-98.1 F 81-136 16-20 94-142/58-92 91-99 General appearance: no acute distress - Head Head exam: Present: normal inspection - Neck Neck exam: Present: normal inspection - Respiratory Respiratory exam: Present: clear to auscultation bilaterally - Cardiovascular Cardiovascular exam: Present: regular rate and rhythm - GI/Abdominal GI/Abdominal exam: Present: normal bowel sounds, soft, other (Nontender with no palpable masses or hepatosplenomegaly.) - Extremities Exam Extremities exam: Present: normal inspection - Skin Skin exam: Present: normal color, warm, intact Results - Labs CBC & BMP: 02/18/17 04:20 02/18/17 04:20 Quality Measures - VTE Contraindication to Pharmacological VTE Prophylaxis: High Risk of Bleeding
[2017-02-19] MEDS: ASPIRIN EC 81 MG TABLET PO SCH (11:32)
[2017-02-19] MEDS: DILTIAZEM CD 120 MG CAPSULE PO SCH (11:32)
[2017-02-19] MEDS: LORazepam 1 MG TABLET PO SCH (11:32)
[2017-02-19] MEDS: MULTIVITAMIN (CENTRUM) TABLET PO SCH (11:33)
[2017-02-19] MEDS: PANTOPRAZOLE 40 MG TABLET PO SCH (11:34)
[2017-02-19] MEDS: POTASSIUM CHLORIDE 20 MEQ TABLET PO SCH (11:34)
[2017-02-19] MEDS: FUROSEMIDE 20 MG TABLET PO SCH (11:34)
[2017-02-19] MEDS: FLUCONAZOLE 100 MG TABLET PO SCH (11:34)
[2017-02-19] MEDS: BUDESONIDE/FORMOTEROL 160-4.5 INHALER 6 GM INH SCH ×2 (11:35→21:55)
[2017-02-19] MEDS: THEOPHYLLINE ER (24 HR) 300 MG CAPSULE PO SCH (11:35)
[2017-02-19] MEDS: CETIRIZINE 10 MG TABLET PO SCH (11:35)
[2017-02-19] MEDS ORDERED: PROPOFOL 1,000 MG/100 ML BOTTLE IV ONE (11:57)
--- NOTE | 2017-02-19 12:02 | Operative Note ---
Date of procedure: 02/19/17 Pre-op diagnosis: Malignant large and small bowel obstruction Post-op diagnosis: same Procedure: Palliative laparoscopic hand-assisted right hemicolectomy with stapled ileocolic anastomosis Findings and technique: After informed consent was obtained patient was brought the operating room and placed in supine position. After successful induction with general anesthesia the patient's abdomen was prepped and draped in usual sterile fashion. With induction of anesthesia the patient had an initial blood pressure drop which was treated by anesthesia and I delayed about 10-15 minutes before starting the procedure. Once the patient appeared to have a more stable hemodynamics situation I elected to proceed. Local anesthesia was infiltrated around the umbilicus where a small vertical incision was made in a GelPort inserted. Pneumoperitoneum was established and the camera was inserted. An additional 11 mm port was placed through an old scar in his upper midline. With my hand in place I have visualized the right upper quadrant with the patient had a massively dilated cecum which appeared to be almost like a volvulus in the right upper quadrant. All of his colon was in the right upper quadrant. There were extensive adhesions to the undersurface of the liver. Using the harmonic dissector I took down these adhesions and mobilized the peritoneal reflection laterally. There appear to be extension of tumor into the right lateral sidewall and this was included in the resection laparoscopically. I mobilized the colon medially. I was having a difficult time getting the colon mobilized medially and it was clear that I would not be able to deliver it out through the small incision. Abdomen large the incision several centimeters to deliver this large cecum out through the incision. I had to be careful with retraction of the cecum was always worried about rupture of the dilated attenuated bowel. I then transected the terminal ileum with a CHINYERE stapling device. The mesocolon was divided between clamps and ties and the proximal transverse colon divided with a CHINYERE stapling device. The specimen was removed. An ileocolic anastomosis was performed. I used the Doppler to ascertain whether there was good flow in the mesentery adjacent to the bowel and this appeared to be well perfused. The anastomosis was done with a CHINYERE stapling device and a TA stapler to close the openings in the ends of the bowel. There was no tension on the anastomosis. The anastomosis was reinforced with several interrupted 3-0 silk sutures. This was then coated with Tisseel and appeared to be well perfused. The bowel was returned to its normal position after the abdomen was irrigated. There was no spillage of enteric contents. The NG tube was well positioned in the stomach. Sponge and instrument counts were correct at the time of closure of the fascia with running #1 PDS suture. The skin was closed with skin clips. Anesthesia: GETA, local Surgeon / Physician: Arvind Lloyd III. Estimated blood loss: other (50 mL) Specimens: other (Right colon) Condition: stable Disposition: PACU Results - Labs CBC & BMP: 02/18/17 04:20 02/18/17 04:20 Discharge Plan - Discharge Medications No Action Tiotropium Inhalation [Spiriva Handihaler] 18 mcg INH DAILY Simvastatin [Zocor] 10 mg PO DAILY Potassium Chloride 10 meq PO DAILY Omeprazole [Prilosec] 20 mg PO DAILY Multivitamin [One Daily Multivitamin] 1 tablet PO DAILY HydrOXYzine PAMOATE CAP [Vistaril Cap] 25 mg PO QPM Furosemide 20 mg PO DAILY Flecainide [Tambocor] 100 mg PO BID Donepezil HCl 10 mg PO DAILY Docusate Sodium [Colace] 100 mg PO QPM Digoxin 125 mcg PO DAILY Cetirizine Tab [ZyrTEC Tab] 10 mg PO DAILY Budesonide/Formoterol 160-4.5 [Symbicort 160-4.5] 2 puff INH BID Aspirin [Ecotrin] 81 mg PO DAILY Albuterol Neb [Proventil Neb] 0.63 mg INH Q6HR Theophylline ER Cap (24 Hr) [Tor-24] 300 mg PO DAILY LORazepam TAB [Ativan Tab] 1 mg PO DAILY HYDROcodone/ACETAMIN 5-325 [[place] 5-325] 1 tablet PO Q6HR PRN PRN Reason: Pain dilTIAZem HCl [Diltiazem HCl] 120 mg PO DAILY Apixaban [Eliquis] 2.5 mg PO BID Prochlorperazine Tab [Compazine Tab] 10 mg PO BID PRN tablet PRN Reason: Nausea/Vomiting - Follow Up or Referral - Forms/Instructions
[2017-02-19] MEDS ORDERED: LACTATED RINGERS 2,000 ML IV ONE (12:26)
[2017-02-19] MEDS ORDERED: ePHEDrine 50 MG/ML AMP ONE (12:26)
[2017-02-19] MEDS ORDERED: fentaNYL 100 MCG/2 ML VIAL ONE (12:26)
[2017-02-19] MEDS ORDERED: SEVOFLURANE 1 UNIT/15 MINUTE INH ONE (12:29)
[2017-02-19 12:40] LABS: ABG Base Excess -4.4 MMOL/L (-2.5-2.5); ABG HCO3 20.8 MMOL/L (20-26); ABG Oxygen Saturation 98.5 % (95-100); ABG PCO2 38.3 MM HG (35-48); ABG PH 7.344 (7.35-7.45); ABG TCO2 18.4 MMOL/L (23-27)
[2017-02-19] MEDS ORDERED: HYDROmorphone 2 MG/1 ML VIAL ONE (12:41)
[2017-02-19] MEDS: PROPOFOL 1,000 MG/100 ML BOTTLE IV SCH ×2 (12:45→22:28)
[2017-02-19] MEDS ORDERED: HYDROmorphone 2 MG/1 ML VIAL IV PRN (12:51)
[2017-02-19] MEDS ORDERED: ONDANSETRON 4 MG/2 ML VIAL IV PRN (12:51)
--- NOTE | 2017-02-19 13:03 | XRay Report ---
History: Pneumonia Date: 02/19/2017 Study: Chest x-ray AP portable Comparison exam: February 10, 2017 The endotracheal tube is well-positioned. A nasogastric tube enters the stomach. A right subclavian Mediport-type catheter is well-positioned with its tip over the superior vena cava. There is no pneumothorax. There is stable mild cardiomegaly. The mediastinal contours are unremarkable. The pulmonary vasculature is borderline to minimally prominent. There is increasing mild right greater than left pleural effusion. There is some increased patchy and strandy atelectasis/infiltrate in the right lung base. There is stable subsegmental atelectasis in the left base. Osseous structures are unchanged. Impression: Satisfactory positioning of the supporting tubes. Increasing right basilar atelectasis/infiltrate and pleural effusion compared to the previous study PROCEDURE INTERPRETED AT [facility] DEPARTMENT OF RADIOLOGY Final Report Signed by: Dr. Shanae Mitchell
[2017-02-19 13:35] LABS: Hematocrit 37.8 VOL% (42.0-52.0); Hemoglobin 12.8 GM/DL (14.0-18.0)
[2017-02-19] MEDS ORDERED: ALBUMIN 5% 12.5 GM in PREMIX 1 EACH IV ONE ×2 (13:45→21:58)
--- NOTE | 2017-02-19 13:54 | Gastrointestinal Progress Note ---
Assessment and Plan (1) Anemia Status: Acute Assessment and plan: 02/19-Post right hemicolectomy, in ICU sedated on vent. HH stable at this time. Path report pending. Plan and addendum to follow by DR Mitchell. 02/16-H&H is stable without overt bleeding. Findings of colonoscopy on yesterday of right colon lesion as well as CT findings noted as below. CEA level noted. Plan an addendum to followed by Dr. Mitchell. Current Visit: Yes Gastroenterology - PN: Subj Interval history: CC: Colon mass Pt is seen, post colectomy, on the ventilator and sedated. Pt underwent right hemicolectomy today and is seen post recovery. He is having some tachycardia with hypotension at this time however this has been addressed with Dr Lloyd. Abdomen is soft, dressing intact. HH has remained stable at this time. ROS: No acute distress noted Exam (Progress Note) - Constitutional Vitals: Period Temp Pulse Resp BP Sys/Finney Pulse Ox Last 24 Hr 97.3 F-98.4 F 81-139 9-20 87-148/52-92 91-100 General appearance: normal weight, no acute distress - Head Head exam: Present: normal inspection, normocephalic - Eye Eye exam: Present: other (lids and conjunctiva unremarkable). Absent: scleral icterus - ENT ENT exam: Present: normal exam, normal oropharynx - Neck Neck exam: Present: normal inspection - Respiratory Respiratory exam: Present: clear to auscultation bilaterally. Absent: rales, rhonchi, wheezes - Cardiovascular Cardiovascular exam: Present: regular rate and rhythm. Absent: diastolic murmur , JVD, systolic murmur - GI/Abdominal GI/Abdominal exam: Present: soft. Absent: ascites, distended, mass, organomegaly, tenderness - Extremities Exam Extremities exam: Present: normal inspection - Back Exam Back exam: Present: normal inspection - Neurological Exam Neurological exam: Present: altered - Psychiatric Psychiatric exam: Present: other - Skin Skin exam: Present: normal color, warm, dry Results - Labs CBC & BMP: 02/19/17 13:26 02/18/17 04:20 Lab Results: I have reviewed the past 24 hour labs
[2017-02-19] MEDS ORDERED: ALBUMIN 5% 12.5 GM/250 ML VIAL IV ONE ×2 (14:00→22:01)
[2017-02-19] MEDS: LACTATED RINGERS 1,000 ML IV SCH ×2 (14:17→21:55)
[2017-02-19] MEDS: DIGOXIN 0.125 MG TABLET PO SCH (14:18)
[2017-02-19] MEDS: PHENYLEPHRINE DRIP 40 MG/250 ML PREMIX IV SCH ×2 (14:18→23:34)
[2017-02-19] MEDS: PANTOPRAZOLE 40 MG VIAL IV SCH (14:29)
[2017-02-19] MEDS: DIGOXIN 0.5 MG/2 ML AMP IV SCH (14:29)
[2017-02-19] MEDS ORDERED: methylPREDNISolone SOD SUC 40 MG/1 ML VIAL IV SCH (14:30)
[2017-02-19] MEDS: MORPHINE 2 MG/1 ML SYRINGE IV PRN ×3 (15:00→21:56)
[2017-02-19] MEDS: FLUCONAZOLE INJ 100 MG in IV BAG 1 EACH IV SCH (15:28)
[2017-02-19] MEDS ORDERED: DILTIAZEM 60 MG TABLET PO SCH (17:00)
--- NOTE | 2017-02-19 17:26 | Event Note ---
Patient seen in ICU on ventilator postop. He is responsive. Had a colon resection with end-to-end anastomosis and no colostomy. Urine output has been marginal. Blood pressure on the low side. We will give him IV fluids. Heart rate is in the 140s. We will start low-dose Cardizem infusion. He takes Cardizem by mouth at home for his atrial fibrillation. We will start weaning in the morning if all is stable
[2017-02-19] MEDS: DILTIAZEM INJ 100 MG in SODIUM CHLORIDE 0.9% 100 ML IV SCH ×2 (17:36→23:35)
[2017-02-19 20:26] LABS: Hematocrit 36.9 VOL% (42.0-52.0); Hemoglobin 12.5 GM/DL (14.0-18.0)
[2017-02-20] MEDS: metroNIDAZOLE INJ 500 MG in PREMIX 1 EACH IV SCH ×2 (00:31→11:53)
[2017-02-20] MEDS: ACETAMINOPHEN 325 MG TABLET PO PRN (00:45)
[2017-02-20] MEDS: ALBUTEROL/IPRATROPIUM 3 ML NEB RESP TX SCH ×4 (00:58→20:05)
[2017-02-20 03:40] LABS: Basophils % 0.1 % (0.0-0.8); Hematocrit 32.3 VOL% (42.0-52.0); Hemoglobin 10.9 GM/DL (14.0-18.0); Immature Granulocytes % 0.6 %; Immature Granulocytes Absolute 0.16 #; Lymphocytes # 1.1 10*3/uL (1.4-4.0); Lymphocytes % 4.2 % (21.2-54.2); Mean Corpuscular HGB Conc 33.7 GM/DL (32-36); Mean Corpuscular Hemoglobin 28 PG (27-34); Mean Corpuscular Volume 83.7 FL (87-102); Mean Platelet Volume 8.8 FL (9.6-12.0); Monocytes # 1.2 10*3/uL (0.11-0.8); Monocytes % 4.4 % (1.7-12.7); Neutrophils # 23.9 10*3/uL (1.4-7.4); Neutrophils % 90.7 % (38.7-73.9); Platelet Count 211 T/CUMM (130-400); Red Blood Count 3.86 MC/CUMM (3.8-5.5); Red Cell Distribution Width 16.5 % (9.3-17.3); White Blood Count 26.3 T/CUMM (4-12)
[2017-02-20 04:07] LABS: Calcium 7.4 MG/DL (8.5-10.1); Osmolality,Calculated 284.3 MOS/KG (273-304); Potassium 4.1 MMOL/L (3.5-5.1)
[2017-02-20] MEDS: LACTATED RINGERS 1,000 ML IV SCH ×3 (04:35→18:40)
[2017-02-20] MEDS: MORPHINE 2 MG/1 ML SYRINGE IV PRN ×5 (05:10→21:32)
[2017-02-20] MEDS ORDERED: SODIUM CHLORIDE 0.9% 500 ML IV ONE ×2 (06:35→14:22)
--- NOTE | 2017-02-20 06:38 | Pulmonology Progress Note ---
Pulmonary - PN: Subj Interval history: This 89-year-old white male had a right colectomy yesterday for colon cancer. He had near obstruction. It was pretty much an emergency situation. He has severe COPD. Chronic atrial fibrillation. His urine output has been low his creatinine has risen slightly to 1.4. He is requiring Greg-Synephrine to keep his blood pressure up. The patient is alert and responsive and tolerating CPAP. He has a right pleural effusion which is probably sympathetic to his abdominal surgery. We will give him 500 mL bolus of normal saline and hope that we can get him extubated shortly. Exam (Progress Note) - Constitutional Vitals: Period Temp Pulse Resp BP Sys/Finney Pulse Ox Last 24 Hr 97.1 F-98.8 F 73-144 9-21 73-148/40-109 94-100 Exam: Patient is responsive nods to questions moves all 4 extremities. Systolic blood pressure is 115 on Greg-Synephrine. Vital signs otherwise normal. He has atrial fibrillation with a slightly rapid pulse around 110. Pupils react to light. Orotracheal tube in place. Neck is supple no bruits. Chest reveals no wheezes. He has some rhonchi and rales at the right base. Heart irregular without murmur. Abdomen soft. There is some tenderness at the surgical site. No bowel sounds as yet. Extremities no clubbing cyanosis or edema. Calves nontender. Results - Labs CBC & BMP: 02/20/17 03:35 02/20/17 03:35 Lab Results: I have reviewed the past 24 hour labs - Diagnostic Findings Procedure: Chest x-ray: image reviewed by me (ET tube good position. CVP line in good position. Right pleural effusion and small left pleural effusion noted. ) Assessment and Plan (1) Colon cancer Status: Acute Assessment and plan: He has near total obstruction with right colon cancer. Although he is at increased risk due to his underlying medical problems, agree with proceeding with surgery today. Patient has been a DO NOT RESUSCITATE in the past. I have had several discussions with him about this. This will need to be rescinded for his surgery but he does not want to be on prolonged life support. 02/20/2017 status post right colectomy for colon cancer with near total obstruction. Await final path report for staging. 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 02/20/2017 remote history of pulmonary thromboembolic disease. Need to get him on DVT prophylaxis again. He was on Eliquis prior to admission and I think we can start him back on half dose Eliquis as soon as he is taking oral medications. We will go with Lovenox for now. Current Visit: No (4) Chronic atrial fibrillation Status: Chronic Assessment and plan: Continues on anticoagulant for atrial fibrillation. These will need to be held for surgery and started back postoperatively. 02/20/2017 rate is around 110. Not able to give his oral medications regularly. He is getting diltiazem intravenously Current Visit: No (5) COPD (chronic obstructive pulmonary disease) Status: Chronic Assessment and plan: Is not having any active exacerbation at present. Does have small pleural effusions probably from getting IV fluids while he is been n.p.o. Will bump with IV Lasix. Bump with Solu-Medrol preop. 02/20/2017 he has severe COPD but not having any bronchospasm at present. Current Visit: No
[2017-02-20 06:53] LABS: ABG Base Excess -1.5 MMOL/L (-2.5-2.5); ABG HCO3 23.2 MMOL/L (20-26); ABG Oxygen Saturation 97.4 % (95-100); ABG PCO2 34.2 MM HG (35-48); ABG PH 7.423 (7.35-7.45); ABG PO2 93.4 MM HG (80-95); ABG TCO2 20.1 MMOL/L (23-27)
[2017-02-20] MEDS: ENOXAPARIN 40 MG/0.4 ML SYRINGE SUBCUT SCH (06:59)
[2017-02-20] MEDS: PHENYLEPHRINE DRIP 40 MG/250 ML PREMIX IV SCH ×3 (07:12→21:31)
--- NOTE | 2017-02-20 07:13 | Event Note ---
He is awake and alert on the ventilator. His pain is controlled. He has had stable blood pressure but has been oliguric. We have given him several boluses of crystalloid and colloid. I suspect that he is third spacing a lot of fluid. He did have some ascites in his abdomen. Hopefully we will get him off the ventilator today.
[2017-02-20 07:35] LABS: Band Neutrophils 4 % (0-10); Hypochromasia 1+; Lymphocytes 4 % (20-55); Platelet Estimate Adequate; Segmented Neutrophils 89 % (50-85); Total Cells Counted 100
[2017-02-20] MEDS: DIGOXIN 0.5 MG/2 ML AMP IV SCH (08:18)
[2017-02-20] MEDS: methylPREDNISolone SOD SUC 40 MG/1 ML VIAL IV SCH ×2 (08:18→21:31)
[2017-02-20] MEDS: PANTOPRAZOLE 40 MG VIAL IV SCH (08:18)
[2017-02-20] MEDS: BUDESONIDE/FORMOTEROL 160-4.5 INHALER 6 GM INH SCH ×2 (08:22→21:31)
[2017-02-20 08:52] LABS: ABG Base Excess -1.6 MMOL/L (-2.5-2.5); ABG Oxygen Saturation 94.3 % (95-100); ABG PH 7.406 (7.35-7.45); ABG PO2 70.7 MM HG (80-95); ABG TCO2 20.4 MMOL/L (23-27)
[2017-02-20] MEDS ORDERED: DILTIAZEM 60 MG TABLET PO SCH (09:00)
--- NOTE | 2017-02-20 09:05 | XRay Report ---
XR chest 1V portable Indication: Ventilator management Comparison: 19 February 2017 Findings: The heart and mediastinum are stable in size and configuration. The lines and tubes are unchanged in position. The pulmonary vascularity is normal in caliber. Hazy right lower lung density is similar to previous exam. No other lung infiltrates, effusions, pneumothorax or other abnormality is demonstrated. Impression: No significant change PROCEDURE INTERPRETED AT [facility] DEPARTMENT OF RADIOLOGY Final Report Signed by: Dr. Freddie Grijalva
[2017-02-20] MEDS: CETIRIZINE 10 MG TABLET PO SCH (10:09)
[2017-02-20] MEDS: ASPIRIN EC 81 MG TABLET PO SCH ×2 (10:09→10:10)
[2017-02-20] MEDS: DILTIAZEM CD 120 MG CAPSULE PO SCH (10:09)
--- NOTE | 2017-02-20 11:17 | Hospitalist Progress Note ---
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 He underwent right hemicolectomy yesterday. He was extubated this morning. He reports that his pain is controlled. He is still requiring a pressor. Exam - Constitutional Vitals: Period Temp Pulse Resp BP Sys/Finney Pulse Ox Last 24 Hr 97.1 F-99.9 F 73-144 9-22 73-148/40-109 91-100 General appearance: normal weight - Head Head exam: Present: normocephalic, atraumatic - Eye Eye exam: Present: EOMI Pupils: Present: AMOR - ENT ENT exam: Present: normal exam - Neck Neck exam: Present: normal inspection - Respiratory Respiratory exam: Present: clear to auscultation bilaterally. Absent: rhonchi, wheezes - Cardiovascular Cardiovascular exam: Present: regular rate and rhythm - GI/Abdominal GI/Abdominal exam: Present: normal bowel sounds, tenderness, soft. Absent: rebound - Extremities Exam Extremities exam: Present: normal inspection - Back Exam Back exam: Present: normal inspection - Neurological Exam Neurological exam: Present: alert, oriented X3 - Psychiatric Psychiatric exam: Present: normal affect, normal mood - Skin Skin exam: Present: warm, intact Results - Labs CBC & BMP: 02/20/17 03:35 02/20/17 03:35 Quality Measures - VTE Contraindication to Pharmacological VTE Prophylaxis: High Risk of Bleeding
[2017-02-20] MEDS ORDERED: LEVOFLOXACIN INJ 500 MG in PREMIX 1 EACH IV SCH (11:30)
--- NOTE | 2017-02-20 13:11 | Anesthesia Post-Op ---
Anesthesia Post OP - Post Ansesthetic Evaluation Patient seen in post op: Yes Resp: other (02 via FM) CV: other (neosyn infusion, Cardzm infusion for Afib) Mental: within normal limits Temp: within normal limits [id number]-[id number]: within normal limits Nausea and Vomiting: within normal limits Pain: within normal limits (Pt very appreciative of care)
[2017-02-20] MEDS: DILTIAZEM INJ 100 MG in SODIUM CHLORIDE 0.9% 100 ML IV SCH (14:31)
[2017-02-20] MEDS: FLUCONAZOLE INJ 100 MG in IV BAG 1 EACH IV SCH (15:00)
[2017-02-20] MEDS: PROPOFOL 1,000 MG/100 ML BOTTLE IV SCH (15:35)
[2017-02-20] MEDS: DOCUSATE SODIUM 100 MG CAPSULE PO SCH (21:30)
[2017-02-20] MEDS: SIMVASTATIN 10 MG TABLET PO SCH (21:31)
[2017-02-21] MEDS: ALBUTEROL/IPRATROPIUM 3 ML NEB RESP TX SCH ×4 (00:18→19:43)
[2017-02-21] MEDS: LACTATED RINGERS 1,000 ML IV SCH ×2 (02:32→10:01)
[2017-02-21] MEDS: MORPHINE 2 MG/1 ML SYRINGE IV PRN (02:33)
[2017-02-21] MEDS: metroNIDAZOLE INJ 500 MG in PREMIX 1 EACH IV SCH ×2 (02:33→11:15)
[2017-02-21 05:15] LABS: Basophils % 0.1 % (0.0-0.8); Hemoglobin 11.1 GM/DL (14.0-18.0); Immature Granulocytes % 0.6 %; Immature Granulocytes Absolute 0.14 #; Lymphocytes # 0.7 10*3/uL (1.4-4.0); Lymphocytes % 3.1 % (21.2-54.2); Mean Corpuscular HGB Conc 32.6 GM/DL (32-36); Mean Corpuscular Hemoglobin 28 PG (27-34); Mean Corpuscular Volume 86.5 FL (87-102); Mean Platelet Volume 9.7 FL (9.6-12.0); Monocytes # 0.8 10*3/uL (0.11-0.8); Monocytes % 3.4 % (1.7-12.7); Neutrophils # 21.1 10*3/uL (1.4-7.4); Neutrophils % 92.8 % (38.7-73.9); Platelet Count 221 T/CUMM (130-400); Red Blood Count 3.93 MC/CUMM (3.8-5.5); Red Cell Distribution Width 16.9 % (9.3-17.3); White Blood Count 22.7 T/CUMM (4-12)
[2017-02-21 05:37] LABS: Calcium 7.8 MG/DL (8.5-10.1); Osmolality,Calculated 286.1 MOS/KG (273-304); Potassium 4.7 MMOL/L (3.5-5.1)
[2017-02-21 06:05] LABS: Band Neutrophils 1 % (0-10); Lymphocytes 4 % (20-55); Platelet Estimate Normal; Segmented Neutrophils 93 % (50-85); Total Cells Counted 100
[2017-02-21] MEDS: ENOXAPARIN 40 MG/0.4 ML SYRINGE SUBCUT SCH (06:08)
[2017-02-21] MEDS: DILTIAZEM INJ 100 MG in SODIUM CHLORIDE 0.9% 100 ML IV SCH ×2 (06:10→16:23)
--- NOTE | 2017-02-21 06:34 | Pulmonology Progress Note ---
Pulmonary - PN: Subj Interval history: This 89-year-old white male had a right colectomy yesterday for colon cancer. He had near obstruction. It was pretty much an emergency situation. He has severe COPD. Chronic atrial fibrillation. His urine output has been low his creatinine has risen slightly to 1.4. He is requiring Greg-Synephrine to keep his blood pressure up. The patient is alert and responsive and tolerating CPAP. He has a right pleural effusion which is probably sympathetic to his abdominal surgery. We will give him 500 mL bolus of normal saline and hope that we can get him extubated shortly. 02/21/2017 patient was extubated without difficulty yesterday. O2 sat 92% on 4 L. He sitting up in a chair. Still has marginal urine output. Still requiring Greg-Synephrine for hypotension. Cannot move him to the floor until we get the Greg-Synephrine weaned. He is getting a good bit of fluid and his weight is up 4 kg from yesterday. Chest x-ray is pending. He has had a right pleural effusion felt to be due to his abdominal surgery. We could easily get him overloaded however. He has not passed gas as yet. Only getting sips of liquid p.o. to take pills. Exam (Progress Note) - Constitutional Vitals: Period Temp Pulse Resp BP Sys/Finney Pulse Ox Last 24 Hr 98.3 F-100.6 F 97-137 11-25 89-131/47-79 86-96 Exam: Patient is alert, answers questions moves all 4 extremities. Systolic blood pressure is 115 on Greg-Synephrine. Vital signs otherwise normal. He has atrial fibrillation with a slightly rapid pulse around 100. Pupils react to light. Neck is supple no bruits. Chest reveals no wheezes. He has some rhonchi and rales at the right base. Heart irregular without murmur. Abdomen soft. There is some tenderness at the surgical site. No bowel sounds as yet. Extremities no clubbing cyanosis or edema. Calves nontender. Results - Labs CBC & BMP: 02/21/17 04:03 02/21/17 04:03 Lab Results: I have reviewed the past 24 hour labs Assessment and Plan (1) Colon cancer Status: Acute Assessment and plan: He has near total obstruction with right colon cancer. Although he is at increased risk due to his underlying medical problems, agree with proceeding with surgery today. Patient has been a DO NOT RESUSCITATE in the past. I have had several discussions with him about this. This will need to be rescinded for his surgery but he does not want to be on prolonged life support. 02/20/2017 status post right colectomy for colon cancer with near total obstruction. Await final path report for staging. 02/21/2017 status post right colectomy. Pathology pending. Still has postop ileus. 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 02/20/2017 remote history of pulmonary thromboembolic disease. Need to get him on DVT prophylaxis again. He was on Eliquis prior to admission and I think we can start him back on half dose Eliquis as soon as he is taking oral medications. We will go with Lovenox for now. 02/21/2017 remote history of pulmonary embolism. Keep on Lovenox for DVT prophylaxis. Changed to Eliquis when he is eating. Current Visit: No (4) Chronic atrial fibrillation Status: Chronic Assessment and plan: Continues on anticoagulant for atrial fibrillation. These will need to be held for surgery and started back postoperatively. 02/20/2017 rate is around 110. Not able to give his oral medications regularly. He is getting diltiazem intravenously 02/21/2017 rate is controlled. Current Visit: No (5) COPD (chronic obstructive pulmonary disease) Status: Chronic Assessment and plan: Is not having any active exacerbation at present. Does have small pleural effusions probably from getting IV fluids while he is been n.p.o. Will bump with IV Lasix. Bump with Solu-Medrol preop. 02/20/2017 he has severe COPD but not having any bronchospasm at present. 02/21/2017 no bronchospasm. O2 sat 92% on 4 L. Continuing IPPB with duo nebs. Current Visit: No
--- NOTE | 2017-02-21 06:56 | Event Note ---
He looks and feels well. He is up in a chair this morning. He is not having shortness of breath or abdominal pain. He states that he is hungry. He has a marginal urine output and is still requiring some von-to keep his blood pressure up. We are going to keep his Oliva catheter today to monitor ins and outs. I discussed his case with Dr. Boudreaux. His BUN and creatinine is not elevated. It is unclear if he is dry or not. We have given him some extra fluid. We have to be careful because of his propensity to go into heart failure.
[2017-02-21] MEDS ORDERED: FUROSEMIDE 20 MG/2 ML VIAL IV ONE (07:05)
--- NOTE | 2017-02-21 07:44 | Oncology Progress Note ---
Oncology Subjective PN Interval history: Up in chair awake alert and oriented. Op note was reviewed. Pathology report pending. Undecided whether chemotherapy will be pursued. At this time will focus on postoperative rehabilitation. He has expressed interest in going to [facility] at the time of discharge. He can see me back in the office around mid March. Exam - Constitutional Vitals: Period Temp Pulse Resp BP Sys/Finney Pulse Ox Last 24 Hr 98.3 F-100.6 F 92-137 11-25 89-131/47-79 86-96 Results - Labs CBC & BMP: 02/21/17 04:03 02/21/17 04:03 Quality Measures - VTE Contraindication to Pharmacological VTE Prophylaxis: High Risk of Bleeding
--- NOTE | 2017-02-21 08:08 | XRay Report ---
Portable chest Exam date: 02/21/2017 6:27 AM Indication: Shortness of breath, cough Comparison: Previous day at 0258 hours Findings: Cardiomediastinal contours are stable with no change in Chemo-Port placement. Interval removal of the esophageal gastric and endotracheal tubes. Decreased lung volumes on current study with small residual pleural effusions and bibasilar atelectasis. No acute osseous abnormalities. Visualized upper abdomen demonstrates no acute pathology. Impression: Interval extubation and esophageal gastric tube removal Bibasilar atelectasis with trace effusions PROCEDURE INTERPRETED AT [facility] DEPARTMENT OF RADIOLOGY Final Report Signed by: Haresh Howard
[2017-02-21] MEDS: ASPIRIN EC 81 MG TABLET PO SCH (10:35)
[2017-02-21] MEDS: DILTIAZEM CD 120 MG CAPSULE PO SCH (10:37)
[2017-02-21] MEDS: MULTIVITAMIN (CENTRUM) TABLET PO SCH (10:39)
[2017-02-21] MEDS: CETIRIZINE 10 MG TABLET PO SCH (10:39)
[2017-02-21] MEDS: PANTOPRAZOLE 40 MG TABLET PO SCH (10:39)
[2017-02-21] MEDS: BUDESONIDE/FORMOTEROL 160-4.5 INHALER 6 GM INH SCH ×2 (10:40→21:26)
[2017-02-21] MEDS: methylPREDNISolone SOD SUC 40 MG/1 ML VIAL IV SCH ×2 (10:40→21:23)
[2017-02-21] MEDS: FLUCONAZOLE 100 MG TABLET PO SCH (11:14)
[2017-02-21] MEDS: LORazepam 1 MG TABLET PO SCH (11:46)
--- NOTE | 2017-02-21 12:17 | Hospitalist Progress Note ---
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 Still requiring von. Seen sitting up in a chair. He reports that his pain is controlled with his pain medications. Exam - Constitutional Vitals: Period Temp Pulse Resp BP Sys/Finney Pulse Ox Last 24 Hr 98.3 F-100.6 F 76-137 11-25 89-124/47-79 86-96 General appearance: normal weight - Head Head exam: Present: normocephalic, atraumatic - Eye Eye exam: Present: EOMI Pupils: Present: AMOR - ENT ENT exam: Present: normal exam - Neck Neck exam: Present: normal inspection - Respiratory Respiratory exam: Present: clear to auscultation bilaterally. Absent: rhonchi, wheezes - Cardiovascular Cardiovascular exam: Present: regular rate and rhythm - GI/Abdominal GI/Abdominal exam: Present: tenderness, soft. Absent: rebound - Extremities Exam Extremities exam: Present: normal inspection - Back Exam Back exam: Present: normal inspection - Neurological Exam Neurological exam: Present: alert, oriented X3 - Psychiatric Psychiatric exam: Present: normal affect, normal mood - Skin Skin exam: Present: warm, intact Results - Labs CBC & BMP: 02/21/17 04:03 02/21/17 04:03 Quality Measures - VTE Contraindication to Pharmacological VTE Prophylaxis: High Risk of Bleeding
[2017-02-21] MEDS: FLUCONAZOLE INJ 100 MG in IV BAG 1 EACH IV SCH (15:08)
[2017-02-21] MEDS: DIGOXIN 0.125 MG TABLET PO SCH (15:08)
[2017-02-21] MEDS: PHENYLEPHRINE DRIP 40 MG/250 ML PREMIX IV SCH (16:23)
--- NOTE | 2017-02-21 19:15 | Pathology Report from [facility] ---
[facility] – [place] ACCESSION # : [id number] PATIENT NAME : Jane Ambrosio ORDERING DR : MANASA NEWELL III, MD CLINICAL HX: Colon CA POST-OP DX: Same SPECIMEN INFO: Partial RT colon GROSS DESCRIPTION: Received fresh labeled JANE AMBROSIO consists of a right colon (23.5 cm in length, 4.5 cm to 8.5 cm in greatest diameter) with attached terminal ileum (7.0 x 2.5 cm). An appendix is not identified. Opening the colon reveals a circumferential, constricting tumor mass (7.0 x 3.8 cm) which is located at the junction of the cecum and ascending colon that is10.0 cm from both the proximal and distal margins. Grossly the tumor extends beyond the bowel wall into the adjacent mesentery, coming to within 4.2 cm of the mesenteric margin. Present in the cecum is a separate sessile polypoid mass measuring 5.5 x 2.5 x 0.5 cm which is situated 10.5 cm from the proximal margin and 20.5 cm from the distal margin. Grossly the 2nd mass does not appear to invade the bowel wall. Also seen are three small polyps measuring up to 0.5 cm, one of which comes to within 0.5 cm of the distal margin. Lymph node will be submitted following fixation. Sections submitted A-Proximal margin, B-Distal margin, C-Mesenteric margin, D-F-Primary mass, G-2nd mass from cecum, H-Polyps, I-Lymph nodes. DIAGNOSIS FOR JANE AMBROSIO: See page #2Page #2MICROSCOPIC DIAGNOSIS:COLON, PARTIAL ILEOCOLECTOMY (Intact, 30.5 x 8.5 cm): TUMOR #1 TYPE: Invasive adenocarcinoma TUMOR SITE: Ascending colon TUMOR SIZE: 7.0 x 3.8 cm MACROSCOPIC TUMOR PERFORATION: Absent. HISTOLOGIC GRADE: Moderately differentiated. TUMOR EXTENSION: Invades into the pericolic fat without serosal involvement. MARGINS, PROXIMAL: Uninvolved by carcinoma, distance = 10 cm. DISTAL: Uninvolved by carcinoma, distance = 10 cm. MESENTERIC: Uninvolved by carcinoma, distance = 4.2 cm. TREATMENT EFFECT: No known presurgical therapy. LYMPHOVASCULAR INVASION: Not identified. PERINEURAL INVASION: Not identified. TUMOR DEPOSITS: Not identified. TUMOR BUDDING: Number of tumor buds in 1 hotspot field, 2 = Low score (0-4). LYMPH NODES: NUMBER EXAMINED: 18; NUMBER INVOLVED: 1 (1). 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 TUMOR #2 TYPE: Invasive adenocarcinoma, arising within a villous adenoma. TUMOR SITE: Cecum TUMOR SIZE: 0.4 x 0.3 cm. MACROSCOPIC TUMOR PERFORATION: Absent. HISTOLOGIC GRADE: Well differentiated. TUMOR EXTENSION: Invades muscularis mucosa but not through the muscularic propria. MARGINS, PROXIMAL: Uninvolved by carcinoma, distance = 10.5 cm. DISTAL: Uninvolved by carcinoma, distance = 20.5 cm. MESENTERIC: Uninvolved by carcinoma. TREATMENT EFFECT: No known presurgical therapy. LYMPHOVASCULAR INVASION: Not identified. PERINEURAL INVASION: Not identified. TUMOR DEPOSITS: Not identified. TUMOR BUDDING: Not identified. AJCC (2018) PATHOLOGIC STAGE I (pT1). COLLECTED DATE: 02/20/2017 [facility] REPORT DATE: 02/21/2017 ELECTRONICALLY SIGNED BY: Mary Alice Whitfield M.D. 02/21/2017 - 13:56:03 JOVITA
[2017-02-21] MEDS: DOCUSATE SODIUM 100 MG CAPSULE PO SCH (21:23)
[2017-02-21] MEDS: SIMVASTATIN 10 MG TABLET PO SCH (21:23)
[2017-02-22] MEDS: metroNIDAZOLE INJ 500 MG in PREMIX 1 EACH IV SCH ×2 (00:05→12:52)
[2017-02-22] MEDS: ALBUTEROL/IPRATROPIUM 3 ML NEB RESP TX SCH ×4 (01:22→19:32)
[2017-02-22 06:33] LABS: Basophils % 0.1 % (0.0-0.8); Hematocrit 29.7 VOL% (42.0-52.0); Immature Granulocytes % 0.7 %; Immature Granulocytes Absolute 0.11 #; Lymphocytes # 0.5 10*3/uL (1.4-4.0); Lymphocytes % 3.1 % (21.2-54.2); Mean Corpuscular HGB Conc 33.7 GM/DL (32-36); Mean Corpuscular Hemoglobin 28 PG (27-34); Mean Platelet Volume 9.6 FL (9.6-12.0); Monocytes # 0.5 10*3/uL (0.11-0.8); Monocytes % 3.3 % (1.7-12.7); Neutrophils # 14.5 10*3/uL (1.4-7.4); Neutrophils % 92.8 % (38.7-73.9); Platelet Count 214 T/CUMM (130-400); Red Blood Count 3.58 MC/CUMM (3.8-5.5); Red Cell Distribution Width 16.4 % (9.3-17.3); White Blood Count 15.6 T/CUMM (4-12)
[2017-02-22] MEDS ORDERED: FUROSEMIDE 40 MG/4 ML VIAL IV ONE (06:34)
--- NOTE | 2017-02-22 06:39 | Pulmonology Progress Note ---
Pulmonary - PN: Subj Interval history: This 89-year-old white male had a right colectomy yesterday for colon cancer. He had near obstruction. It was pretty much an emergency situation. He has severe COPD. Chronic atrial fibrillation. His urine output has been low his creatinine has risen slightly to 1.4. He is requiring Greg-Synephrine to keep his blood pressure up. The patient is alert and responsive and tolerating CPAP. He has a right pleural effusion which is probably sympathetic to his abdominal surgery. We will give him 500 mL bolus of normal saline and hope that we can get him extubated shortly. 02/21/2017 patient was extubated without difficulty yesterday. O2 sat 92% on 4 L. He sitting up in a chair. Still has marginal urine output. Still requiring Greg-Synephrine for hypotension. Cannot move him to the floor until we get the Greg-Synephrine weaned. He is getting a good bit of fluid and his weight is up 4 kg from yesterday. Chest x-ray is pending. He has had a right pleural effusion felt to be due to his abdominal surgery. We could easily get him overloaded however. He has not passed gas as yet. Only getting sips of liquid p.o. to take pills. 02/22/2017 patient says he is a bit confused but he is responsive. O2 sat 94% on 5 L simple facemask. Will change him to Ventimask. No chest x-ray this morning. He is now off Greg-Synephrine and his systolic blood pressures in the 130s. At this point will repeat IV Lasix and stop IV fluids. Check ABGs on the Ventimask. Recheck x-ray in the morning. He has had a pleural effusion since surgery. Has severe COPD and atrial fibrillation as well as atherosclerotic heart disease. Exam (Progress Note) - Constitutional Vitals: Period Temp Pulse Resp BP Sys/Finney Pulse Ox Last 24 Hr 97.4 F-99.1 F 74-115 14-90 93-134/47-88 82-102 Exam: Patient is alert, answers questions moves all 4 extremities. Systolic blood pressure is 135 off Greg-Synephrine. Vital signs otherwise normal. He has atrial fibrillation with a slightly rapid pulse around 110. Pupils react to light. Neck is supple no bruits. Chest reveals no wheezes. He has some rhonchi and rales at the right base. Heart irregular without murmur. Abdomen soft. There is some tenderness at the surgical site. Minimal bowel sounds. Extremities no clubbing cyanosis or edema. Calves nontender. Results - Labs CBC & BMP: 02/21/17 04:03 02/21/17 04:03 Lab Results: I have reviewed the past 24 hour labs Assessment and Plan (1) Colon cancer Status: Acute Assessment and plan: He has near total obstruction with right colon cancer. Although he is at increased risk due to his underlying medical problems, agree with proceeding with surgery today. Patient has been a DO NOT RESUSCITATE in the past. I have had several discussions with him about this. This will need to be rescinded for his surgery but he does not want to be on prolonged life support. 02/20/2017 status post right colectomy for colon cancer with near total obstruction. Await final path report for staging. 02/21/2017 status post right colectomy. Pathology pending. Still has postop ileus. 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 See path report. 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 02/20/2017 remote history of pulmonary thromboembolic disease. Need to get him on DVT prophylaxis again. He was on Eliquis prior to admission and I think we can start him back on half dose Eliquis as soon as he is taking oral medications. We will go with Lovenox for now. 02/21/2017 remote history of pulmonary embolism. Keep on Lovenox for DVT prophylaxis. Change to Eliquis when he is eating. 02/22/2017 again plan to change to oral Eliquis once patient is eating adequately. Current Visit: No (4) Chronic atrial fibrillation Status: Chronic Assessment and plan: Continues on anticoagulant for atrial fibrillation. These will need to be held for surgery and started back postoperatively. 02/20/2017 rate is around 110. Not able to give his oral medications regularly. He is getting diltiazem intravenously 02/21/2017 rate is controlled. 02/22/2017 rate is around 110. Current Visit: No (5) COPD (chronic obstructive pulmonary disease) Status: Chronic Assessment and plan: Is not having any active exacerbation at present. Does have small pleural effusions probably from getting IV fluids while he is been n.p.o. Will bump with IV Lasix. Bump with Solu-Medrol preop. 02/20/2017 he has severe COPD but not having any bronchospasm at present. 02/21/2017 no bronchospasm. O2 sat 92% on 4 L. Continuing IPPB with duo nebs. 02/22/2017 requiring Ventimask to keep O2 sat in the low 90s. He is alert. Recheck ABGs Current Visit: No
[2017-02-22 06:58] LABS: Hypochromasia 1+; Lymphocytes 3 % (20-55); Microcytosis 1+; Segmented Neutrophils 95 % (50-85); Total Cells Counted 100
[2017-02-22 06:59] LABS: Acanthocytes Few; Platelet Estimate Normal
[2017-02-22 07:02] LABS: Calcium 7.9 MG/DL (8.5-10.1); Osmolality,Calculated 288.3 MOS/KG (273-304)
[2017-02-22] MEDS: ENOXAPARIN 40 MG/0.4 ML SYRINGE SUBCUT SCH (07:20)
[2017-02-22] MEDS: LORazepam 1 MG TABLET PO SCH (08:16)
[2017-02-22] MEDS: ASPIRIN EC 81 MG TABLET PO SCH (08:16)
[2017-02-22] MEDS: DILTIAZEM CD 120 MG CAPSULE PO SCH (08:17)
[2017-02-22] MEDS: MULTIVITAMIN (CENTRUM) TABLET PO SCH (08:17)
[2017-02-22] MEDS: PANTOPRAZOLE 40 MG TABLET PO SCH (08:18)
[2017-02-22] MEDS: CETIRIZINE 10 MG TABLET PO SCH (08:18)
[2017-02-22] MEDS: FLUCONAZOLE 100 MG TABLET PO SCH (08:18)
[2017-02-22] MEDS: BUDESONIDE/FORMOTEROL 160-4.5 INHALER 6 GM INH SCH ×2 (08:19→21:03)
[2017-02-22] MEDS: methylPREDNISolone SOD SUC 40 MG/1 ML VIAL IV SCH ×2 (08:22→21:00)
[2017-02-22 09:55] LABS: ABG Base Excess -0.7 MMOL/L (-2.5-2.5); ABG HCO3 23.7 MMOL/L (20-26); ABG Oxygen Saturation 92.1 % (95-100); ABG PH 7.446 (7.35-7.45); ABG PO2 62.1 MM HG (80-95); ABG TCO2 20.5 MMOL/L (23-27)
[2017-02-22] MEDS: LACTATED RINGERS 1,000 ML IV SCH (10:45)
[2017-02-22 11:24] LABS: HIV Antigen/Antibody Result Nonreactive (Nonreactive); Hepatitis B Surface Ag Quant < 0.10 Index; Hepatitis B Surface Ag Result Negative (Negative); Hepatitis C Virus Ab Quant 0.06 Index; Hepatitis C Virus Ab Result Negative (Negative)
[2017-02-22] MEDS: DIGOXIN 0.125 MG TABLET PO SCH (12:47)
[2017-02-22] MEDS: MORPHINE 2 MG/1 ML SYRINGE IV PRN ×2 (12:49→18:46)
[2017-02-22] MEDS: PHENYLEPHRINE DRIP 40 MG/250 ML PREMIX IV SCH (13:13)
[2017-02-22] MEDS: DILTIAZEM INJ 100 MG in SODIUM CHLORIDE 0.9% 100 ML IV SCH (14:37)
[2017-02-22] MEDS: FLUCONAZOLE INJ 100 MG in IV BAG 1 EACH IV SCH (14:49)
--- NOTE | 2017-02-22 15:05 | Hospitalist Progress Note ---
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 Requiring 5L facemask, pulmonary switching to ventimask. Receiving lasix today, stopping IV fluids. Greg was weaned off at some point overnight. Will continue to monitor his respiratory status closely in the ICU today. Possible transfer to the floor tomorrow. Exam - Constitutional Vitals: Period Temp Pulse Resp BP Sys/Finney Pulse Ox Last 24 Hr 97.6 F-99.1 F 97-139 14-90 93-145/47-88 88-96 General appearance: normal weight - Head Head exam: Present: normocephalic, atraumatic - Eye Eye exam: Present: EOMI Pupils: Present: AMOR - ENT ENT exam: Present: normal exam - Neck Neck exam: Present: normal inspection - Respiratory Respiratory exam: Present: clear to auscultation bilaterally. Absent: rhonchi, wheezes - Cardiovascular Cardiovascular exam: Present: regular rate and rhythm - GI/Abdominal GI/Abdominal exam: Present: normal bowel sounds, soft. Absent: tenderness, rebound - Extremities Exam Extremities exam: Present: normal inspection - Back Exam Back exam: Present: normal inspection - Neurological Exam Neurological exam: Present: alert - Psychiatric Psychiatric exam: Present: normal affect, normal mood - Skin Skin exam: Present: warm, intact Results - Labs CBC & BMP: 02/22/17 05:36 02/22/17 05:36 Quality Measures - VTE Contraindication to Pharmacological VTE Prophylaxis: High Risk of Bleeding
--- NOTE | 2017-02-22 17:39 | Event Note ---
I saw the patient this morning and this afternoon. He looks and feels better. He is breathing better. He has no abdominal complaints. We have started him on a diet.
[2017-02-22] MEDS: DOCUSATE SODIUM 100 MG CAPSULE PO SCH (20:56)
[2017-02-22] MEDS: SIMVASTATIN 10 MG TABLET PO SCH (20:56)
[2017-02-23] MEDS: ALBUTEROL/IPRATROPIUM 3 ML NEB RESP TX SCH ×4 (00:22→19:32)
[2017-02-23] MEDS: metroNIDAZOLE INJ 500 MG in PREMIX 1 EACH IV SCH ×2 (00:32→12:25)
[2017-02-23 06:25] LABS: Basophils % 0.1 % (0.0-0.8); Hematocrit 30.4 VOL% (42.0-52.0); Hemoglobin 10.4 GM/DL (14.0-18.0); Immature Granulocytes % 1.1 %; Immature Granulocytes Absolute 0.15 #; Lymphocytes # 0.4 10*3/uL (1.4-4.0); Lymphocytes % 3.3 % (21.2-54.2); Mean Corpuscular HGB Conc 34.2 GM/DL (32-36); Mean Corpuscular Hemoglobin 28 PG (27-34); Mean Corpuscular Volume 82.2 FL (87-102); Mean Platelet Volume 9.4 FL (9.6-12.0); Monocytes # 0.7 10*3/uL (0.11-0.8); Monocytes % 5.4 % (1.7-12.7); Neutrophils # 11.9 10*3/uL (1.4-7.4); Neutrophils % 90.1 % (38.7-73.9); Platelet Count 244 T/CUMM (130-400); Red Cell Distribution Width 16.1 % (9.3-17.3); White Blood Count 13.2 T/CUMM (4-12)
[2017-02-23 06:47] LABS: Hypochromasia 1+; Lymphocytes 1 % (20-55); Metamyelocytes 1 %; Segmented Neutrophils 95 % (50-85); Total Cells Counted 100
[2017-02-23 06:48] LABS: Acanthocytes Few; Elliptocytes Few; Microcytosis 1+
[2017-02-23 06:49] LABS: Platelet Estimate Normal
[2017-02-23 07:01] LABS: Calcium 8.1 MG/DL (8.5-10.1); Magnesium 2.1 MG/DL (1.8-2.4); Osmolality,Calculated 291.3 MOS/KG (273-304)
--- NOTE | 2017-02-23 07:10 | Pulmonology Progress Note ---
Pulmonary - PN: Subj Interval history: This 89-year-old white male had a right colectomy yesterday for colon cancer. He had near obstruction. It was pretty much an emergency situation. He has severe COPD. Chronic atrial fibrillation. His urine output has been low his creatinine has risen slightly to 1.4. He is requiring Greg-Synephrine to keep his blood pressure up. The patient is alert and responsive and tolerating CPAP. He has a right pleural effusion which is probably sympathetic to his abdominal surgery. We will give him 500 mL bolus of normal saline and hope that we can get him extubated shortly. 02/21/2017 patient was extubated without difficulty yesterday. O2 sat 92% on 4 L. He sitting up in a chair. Still has marginal urine output. Still requiring Greg-Synephrine for hypotension. Cannot move him to the floor until we get the Greg-Synephrine weaned. He is getting a good bit of fluid and his weight is up 4 kg from yesterday. Chest x-ray is pending. He has had a right pleural effusion felt to be due to his abdominal surgery. We could easily get him overloaded however. He has not passed gas as yet. Only getting sips of liquid p.o. to take pills. 02/22/2017 patient says he is a bit confused but he is responsive. O2 sat 94% on 5 L simple facemask. Will change him to Ventimask. No chest x-ray this morning. He is now off Greg-Synephrine and his systolic blood pressures in the 130s. At this point will repeat IV Lasix and stop IV fluids. Check ABGs on the Ventimask. Recheck x-ray in the morning. He has had a pleural effusion since surgery. Has severe COPD and atrial fibrillation as well as atherosclerotic heart disease. 02/23/2017 patient set up a good bit yesterday. Starting to have some bowel sounds. He has not passed gas as yet. Will remove Oliva catheter. Needs a little bit of IV fluids. Hopefully can start feeding him soon. Should be all right going to the floor. Changing him to nasal oxygen Exam (Progress Note) - Constitutional Vitals: Period Temp Pulse Resp BP Sys/Finney Pulse Ox Last 24 Hr 97.6 F-98.7 F 92-150 14-31 101-150/55-83 87-96 Exam: Patient is alert, answers questions moves all 4 extremities. Systolic blood pressure is 135. Vital signs otherwise normal. He has atrial fibrillation with a slightly rapid pulse around 100. Pupils react to light. Neck is supple no bruits. Chest reveals no wheezes. He has some rhonchi and rales at the right base. Heart irregular without murmur. Abdomen soft. There is some tenderness at the surgical site. Minimal bowel sounds. Extremities no clubbing cyanosis or edema. Calves nontender. Results - Labs CBC & BMP: 02/23/17 05:34 02/22/17 05:36 Lab Results: I have reviewed the past 24 hour labs - Diagnostic Findings Procedure: Chest x-ray: image reviewed by me (Small right pleural effusion, hyperinflation) Assessment and Plan (1) Colon cancer Status: Acute Assessment and plan: He has near total obstruction with right colon cancer. Although he is at increased risk due to his underlying medical problems, agree with proceeding with surgery today. Patient has been a DO NOT RESUSCITATE in the past. I have had several discussions with him about this. This will need to be rescinded for his surgery but he does not want to be on prolonged life support. 02/20/2017 status post right colectomy for colon cancer with near total obstruction. Await final path report for staging. 02/21/2017 status post right colectomy. Pathology pending. Still has postop ileus. 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 See path report. 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 02/20/2017 remote history of pulmonary thromboembolic disease. Need to get him on DVT prophylaxis again. He was on Eliquis prior to admission and I think we can start him back on half dose Eliquis as soon as he is taking oral medications. We will go with Lovenox for now. 02/21/2017 remote history of pulmonary embolism. Keep on Lovenox for DVT prophylaxis. Change to Eliquis when he is eating. 02/22/2017 again plan to change to oral Eliquis once patient is eating adequately. 02/23/2017 remote history of pulmonary embolism. On DVT prophylaxis at present. Resume Eliquis when starting to eat better. Current Visit: No (4) Chronic atrial fibrillation Status: Chronic Assessment and plan: Continues on anticoagulant for atrial fibrillation. These will need to be held for surgery and started back postoperatively. 02/20/2017 rate is around 110. Not able to give his oral medications regularly. He is getting diltiazem intravenously 02/21/2017 rate is controlled. 02/22/2017 rate is around 110. 02/23/2017 heart rate around 100. Current Visit: No (5) COPD (chronic obstructive pulmonary disease) Status: Chronic Assessment and plan: Is not having any active exacerbation at present. Does have small pleural effusions probably from getting IV fluids while he is been n.p.o. Will bump with IV Lasix. Bump with Solu-Medrol preop. 02/20/2017 he has severe COPD but not having any bronchospasm at present. 02/21/2017 no bronchospasm. O2 sat 92% on 4 L. Continuing IPPB with duo nebs. 02/22/2017 requiring Ventimask to keep O2 sat in the low 90s. He is alert. Recheck ABGs 02/23/2017 no active bronchospasm. Will change to nasal oxygen. Current Visit: No
[2017-02-23] MEDS: ENOXAPARIN 40 MG/0.4 ML SYRINGE SUBCUT SCH (07:39)
[2017-02-23] MEDS: ASPIRIN EC 81 MG TABLET PO SCH (08:14)
[2017-02-23] MEDS: DILTIAZEM CD 120 MG CAPSULE PO SCH (08:14)
[2017-02-23] MEDS: SODIUM CHLORIDE 0.45% 1,000 ML IV SCH (08:14)
[2017-02-23] MEDS: MULTIVITAMIN (CENTRUM) TABLET PO SCH (08:14)
[2017-02-23] MEDS: CETIRIZINE 10 MG TABLET PO SCH (08:14)
[2017-02-23] MEDS: PANTOPRAZOLE 40 MG TABLET PO SCH (08:14)
[2017-02-23] MEDS: BUDESONIDE/FORMOTEROL 160-4.5 INHALER 6 GM INH SCH ×2 (08:15→21:42)
[2017-02-23] MEDS: LORazepam 1 MG TABLET PO SCH (08:15)
[2017-02-23] MEDS: FLUCONAZOLE 100 MG TABLET PO SCH (08:15)
--- NOTE | 2017-02-23 08:15 | XRay Report ---
Portable chest Exam date: 02/23/2017 1556 AM Indication: Shortness of breath, cough Comparison: February 21, 2017 at 0623 hours Findings: Cardiomediastinal contours are stable with no change in tube or line placement. Interstitial edema pattern is unchanged with worsening pleural and parenchymal changes within the lung bases, right greater than left. No acute osseous abnormalities. Visualized upper abdomen demonstrates no acute pathology. Impression: Stable interstitial edema pattern with worsening bilateral pleural parenchymal opacities sparing the hemidiaphragms, right greater than left PROCEDURE INTERPRETED AT [facility] DEPARTMENT OF RADIOLOGY Final Report Signed by: Haresh Howard
--- NOTE | 2017-02-23 11:00 | Event Note ---
He looks and feels well. He spent most of yesterday up in a chair. From my standpoint he is okay to go to the floor. He is not having bowel movement or flatus. We are letting him take small amounts by mouth.
[2017-02-23] MEDS: PHENYLEPHRINE DRIP 40 MG/250 ML PREMIX IV SCH (12:03)
--- NOTE | 2017-02-23 12:27 | Hospitalist Progress Note ---
Assessment and Plan (1) History of esophageal cancer Status: Chronic Current Visit: No (2) Anemia Status: Acute Assessment and plan: Stable Current Visit: Yes (3) Hypokalemia Status: Resolved Current Visit: Yes (4) Hypocalcemia Status: Acute Assessment and plan: Albumin is also low, calcium is low normal Will recheck albumin tomorrow Current Visit: Yes (5) GI bleed Status: Acute Current Visit: Yes (6) Colon cancer Status: Acute Assessment and plan: s/p right hemicolectomy 02/19/17 Surgery and oncology assisting Current Visit: Yes Qualifiers: Colon location: ascending Qualified Code(s): C18.2 - Malignant neoplasm of ascending colon (7) Hypotension Status: Resolved Assessment and plan: Greg weaned off Current Visit: Yes (8) COPD (chronic obstructive pulmonary disease) Status: Chronic Assessment and plan: Has history of severe COPD Pulmonary managing Respiratory status is better today Current Visit: No Hospitalist: Subjective Interval history: No acute events overnight. Respiratory status is better, seen today sitting in chair on nc. Tolerating fluids. Will transfer to the floor today. Exam - Constitutional Vitals: Period Temp Pulse Resp BP Sys/Finney Pulse Ox Last 24 Hr 98.1 F-98.7 F 92-150 11-24 101-150/55-84 87-100 General appearance: normal weight - Head Head exam: Present: normocephalic, atraumatic - Eye Eye exam: Present: EOMI Pupils: Present: AMOR - ENT ENT exam: Present: normal exam - Neck Neck exam: Present: normal inspection - Respiratory Respiratory exam: Present: clear to auscultation bilaterally. Absent: rhonchi, wheezes - Cardiovascular Cardiovascular exam: Present: regular rate and rhythm - GI/Abdominal GI/Abdominal exam: Present: normal bowel sounds, tenderness, soft - Extremities Exam Extremities exam: Present: normal inspection - Back Exam Back exam: Present: normal inspection - Neurological Exam Neurological exam: Present: alert, oriented X3 - Psychiatric Psychiatric exam: Present: normal affect, normal mood - Skin Skin exam: Present: warm, intact Results - Labs CBC & BMP: 02/23/17 05:34 02/23/17 05:34 Quality Measures - VTE Contraindication to Pharmacological VTE Prophylaxis: High Risk of Bleeding
[2017-02-23] MEDS: DIGOXIN 0.125 MG TABLET PO SCH (12:42)
[2017-02-23] MEDS: MORPHINE 2 MG/1 ML SYRINGE IV PRN (15:21)
[2017-02-23] MEDS: DOCUSATE SODIUM 100 MG CAPSULE PO SCH (21:42)
[2017-02-23] MEDS: SIMVASTATIN 10 MG TABLET PO SCH (21:43)
[2017-02-24] MEDS: metroNIDAZOLE INJ 500 MG in PREMIX 1 EACH IV SCH ×3 (00:21→23:32)
[2017-02-24] MEDS: ALBUTEROL/IPRATROPIUM 3 ML NEB RESP TX SCH ×4 (00:54→19:22)
[2017-02-24] MEDS: FLUCONAZOLE INJ 100 MG in IV BAG 1 EACH IV SCH (03:21)
[2017-02-24 04:17] LABS: Basophils % 0.1 % (0.0-0.8); Eosinophils % 0.2 % (0.00-10.9); Hemoglobin 10.2 GM/DL (14.0-18.0); Immature Granulocytes % 0.8 %; Lymphocytes # 1.4 10*3/uL (1.4-4.0); Lymphocytes % 10.7 % (21.2-54.2); Mean Corpuscular Hemoglobin 28 PG (27-34); Mean Corpuscular Volume 81.7 FL (87-102); Mean Platelet Volume 9.4 FL (9.6-12.0); Monocytes # 1.2 10*3/uL (0.11-0.8); Monocytes % 9.1 % (1.7-12.7); Neutrophils # 10.2 10*3/uL (1.4-7.4); Neutrophils % 79.1 % (38.7-73.9); Platelet Count 218 T/CUMM (130-400); Red Blood Count 3.67 MC/CUMM (3.8-5.5); White Blood Count 12.9 T/CUMM (4-12)
[2017-02-24 04:47] LABS: Albumin 2.1 G/DL (3.4-5.0); Bilirubin,Direct 0.16 MG/DL (0.0-0.20); Bilirubin,Indirect 0.4 MG/DL (0.0-1.0); Bilirubin,Total 0.6 MG/DL (0.2-1.0); Calcium 7.9 MG/DL (8.5-10.1); Magnesium 1.9 MG/DL (1.8-2.4); Osmolality,Calculated 285.4 MOS/KG (273-304); Potassium 3.5 MMOL/L (3.5-5.1); Total Protein 4.3 G/DL (6.4-8.3)
[2017-02-24] MEDS: ENOXAPARIN 40 MG/0.4 ML SYRINGE SUBCUT SCH (08:10)
[2017-02-24] MEDS: ASPIRIN EC 81 MG TABLET PO SCH (08:10)
[2017-02-24] MEDS: DILTIAZEM CD 120 MG CAPSULE PO SCH (08:11)
[2017-02-24] MEDS: PANTOPRAZOLE 40 MG TABLET PO SCH (08:11)
[2017-02-24] MEDS: FLUCONAZOLE 100 MG TABLET PO SCH (08:11)
[2017-02-24] MEDS: MULTIVITAMIN (CENTRUM) TABLET PO SCH (08:11)
[2017-02-24] MEDS: CETIRIZINE 10 MG TABLET PO SCH (08:12)
[2017-02-24] MEDS: LORazepam 1 MG TABLET PO SCH (08:12)
[2017-02-24] MEDS: BUDESONIDE/FORMOTEROL 160-4.5 INHALER 6 GM INH SCH ×2 (08:19→20:49)
[2017-02-24] MEDS: ACETAMINOPHEN 325 MG TABLET PO PRN (08:21)
--- NOTE | 2017-02-24 09:08 | Hospitalist Progress Note ---
Assessment and Plan (1) Hypokalemia Status: Resolved Assessment and plan: His potassium is 3.5 today. Current Visit: Yes (2) History of esophageal cancer Status: Chronic Assessment and plan: There was no evidence of recurrent esophageal cancer by EGD. Current Visit: No (3) COPD (chronic obstructive pulmonary disease) Status: Acute Assessment and plan: He appears stable. He is not experiencing any respiratory difficulties. Current Visit: No (4) Hypocalcemia Status: Acute Assessment and plan: His calcium today is 7.9. Current Visit: Yes (5) AVM (arteriovenous malformation) Status: Acute Assessment and plan: Patient underwent successful heater probe coagulation of bleeding esophageal AVMs. Current Visit: Yes (6) GI bleed Status: Acute Assessment and plan: Patient is status post GI bleed due to bleeding AVMs of the esophagus. He underwent successful heater probe coagulation. Colonoscopy demonstrated a right -sided colon cancer with no evidence of active bleeding. He does not report any evidence of overt bleeding at the present time. His hematocrit and hemoglobin are stable at 24.0 and 8.1 respectively. Current Visit: Yes (7) Anemia Status: Acute Assessment and plan: His hematocrit and hemoglobin today are 30.0 and 10.2 respectively. Current Visit: Yes Qualifiers: Iron deficiency anemia type: chronic blood loss (8) Colon cancer Status: Acute Assessment and plan: Patient is stable status post right hemicolectomy on 02/19/17. Current Visit: Yes Qualifiers: Colon location: ascending Qualified Code(s): C18.2 - Malignant neoplasm of ascending colon Hospitalist: Subjective Interval history: The patient is sitting upright in bed. He states that he is experiencing only mild postoperative pain. He has been out of bed in the chair. He continues to be followed by general surgery. Exam - Constitutional Vitals: Period Temp Pulse Resp BP Sys/Finney Pulse Ox Last 24 Hr 97.1 F-98.7 F 59-111 15-22 111-172/65-106 91-96 General appearance: no acute distress - Head Head exam: Present: normal inspection - Neck Neck exam: Present: normal inspection - Respiratory Respiratory exam: Present: clear to auscultation bilaterally - Cardiovascular Cardiovascular exam: Present: regular rate and rhythm - GI/Abdominal GI/Abdominal exam: Present: normal bowel sounds, soft, other (Well-healing surgical incision.) - Extremities Exam Extremities exam: Present: normal inspection - Neurological Exam Neurological exam: Present: alert, oriented X3 - Skin Skin exam: Present: normal color, warm, intact Results - Labs CBC & BMP: 02/24/17 03:37 02/24/17 03:37 Quality Measures - VTE Contraindication to Pharmacological VTE Prophylaxis: High Risk of Bleeding
[2017-02-24] MEDS: SODIUM CHLORIDE 0.45% 1,000 ML IV SCH (10:20)
--- NOTE | 2017-02-24 10:26 | Event Note ---
General Surgery Progress Note Chief complaint This patient is a 89-year-old man admitted with a bowel obstruction treated with laps covered right colectomy on 02/19/[address] Lloyd III Interval history No events overnight. Patient was transferred from ICU yesterday. He is doing well and had a small bowel movement this morning. He is very weak and does not have much of appetite but has no nausea or vomiting. Physical exam Afebrile with normal vital signs slightly hypertensive Chest is clear Heart is regular Abdomen has good bowel sounds Incision is clean and dry with no drainage or erythema Labs Reviewed Imaging None new Assessment and plan Advance diet to regular diet Continue physical therapy No further recommendations, discontinue IV fluids once tolerating adequate p.o.
--- NOTE | 2017-02-24 11:02 | Pulmonology Progress Note ---
Pulmonary - PN: Subj Interval history: This 89-year-old white male had a right colectomy yesterday for colon cancer. He had near obstruction. It was pretty much an emergency situation. He has severe COPD. Chronic atrial fibrillation. His urine output has been low his creatinine has risen slightly to 1.4. He is requiring Greg-Synephrine to keep his blood pressure up. The patient is alert and responsive and tolerating CPAP. He has a right pleural effusion which is probably sympathetic to his abdominal surgery. We will give him 500 mL bolus of normal saline and hope that we can get him extubated shortly. 02/21/2017 patient was extubated without difficulty yesterday. O2 sat 92% on 4 L. He sitting up in a chair. Still has marginal urine output. Still requiring Greg-Synephrine for hypotension. Cannot move him to the floor until we get the Greg-Synephrine weaned. He is getting a good bit of fluid and his weight is up 4 kg from yesterday. Chest x-ray is pending. He has had a right pleural effusion felt to be due to his abdominal surgery. We could easily get him overloaded however. He has not passed gas as yet. Only getting sips of liquid p.o. to take pills. 02/22/2017 patient says he is a bit confused but he is responsive. O2 sat 94% on 5 L simple facemask. Will change him to Ventimask. No chest x-ray this morning. He is now off Greg-Synephrine and his systolic blood pressures in the 130s. At this point will repeat IV Lasix and stop IV fluids. Check ABGs on the Ventimask. Recheck x-ray in the morning. He has had a pleural effusion since surgery. Has severe COPD and atrial fibrillation as well as atherosclerotic heart disease. 02/23/2017 patient sat up a good bit yesterday. Starting to have some bowel sounds. He has not passed gas as yet. Will remove Oliva catheter. Needs a little bit of IV fluids. Hopefully can start feeding him soon. Should be all right going to the floor. Changing him to nasal oxygen 02/24/2017 patient generally not feeling good. 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 He has been on long- term Eliquis at 2.5 mg twice daily. This was held for surgery. He has been on Lovenox 40 mg subcu daily the last few days. He developed swelling of his right arm. He has a Mediport catheter going into the right subclavian area. Dopplers of the right arm showed thrombosis in the veins there. At this point I would recommend using the Eliquis 2.5 mg twice daily again. Stop the Lovenox. He is at risk for full dose anticoagulants due to problems in his esophagus and post colon surgery. Exam (Progress Note) - Constitutional Vitals: Period Temp Pulse Resp BP Sys/Finney Pulse Ox Last 24 Hr 97.1 F-98.7 F 59-105 15-22 133-172/65-106 91-98 Exam: Patient is alert, answers questions moves all 4 extremities. Systolic blood pressure is 135. Vital signs otherwise normal. He has atrial fibrillation with a slightly rapid pulse around 100. Pupils react to light. Neck is supple no bruits. Chest reveals no wheezes. He has some rhonchi and rales at the right base. Heart irregular without murmur. Abdomen soft. There is some tenderness at the surgical site. Minimal bowel sounds. Extremities no clubbing cyanosis or edema. Right arm is swollen. Has a right subclavian area Mediport catheter in place. Calves nontender. Results - Labs CBC & BMP: 02/24/17 03:37 02/24/17 03:37 Lab Results: I have reviewed the past 24 hour labs Assessment and Plan (1) Colon cancer Status: Acute Assessment and plan: He has near total obstruction with right colon cancer. Although he is at increased risk due to his underlying medical problems, agree with proceeding with surgery today. Patient has been a DO NOT RESUSCITATE in the past. I have had several discussions with him about this. This will need to be rescinded for his surgery but he does not want to be on prolonged life support. 02/20/2017 status post right colectomy for colon cancer with near total obstruction. Await final path report for staging. 02/21/2017 status post right colectomy. Pathology pending. Still has postop ileus. 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 See path report. 02/23/2017 status post resection with end-to-end anastomosis 02/24/2017 status post colon resection. 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 02/20/2017 remote history of pulmonary thromboembolic disease. Need to get him on DVT prophylaxis again. He was on Eliquis prior to admission and I think we can start him back on half dose Eliquis as soon as he is taking oral medications. We will go with Lovenox for now. 02/21/2017 remote history of pulmonary embolism. Keep on Lovenox for DVT prophylaxis. Change to Eliquis when he is eating. 02/22/2017 again plan to change to oral Eliquis once patient is eating adequately. 02/23/2017 remote history of pulmonary embolism. On DVT prophylaxis at present. Resume Eliquis when starting to eat better. 02/24/2017 remote history of actually a submassive pulmonary embolism and on lifelong anticoagulants. Resuming Eliquis 2.5 mg twice daily because of the swollen right arm with positive Dopplers. Current Visit: No (4) Chronic atrial fibrillation Status: Chronic Assessment and plan: Continues on anticoagulant for atrial fibrillation. These will need to be held for surgery and started back postoperatively. 02/20/2017 rate is around 110. Not able to give his oral medications regularly. He is getting diltiazem intravenously 02/21/2017 rate is controlled. 02/22/2017 rate is around 110. 02/23/2017 heart rate around 100. 02/24/2017 heart rate is controlled. The Eliquis watch for that as well. It is being resumed. Current Visit: No (5) COPD (chronic obstructive pulmonary disease) Status: Chronic Assessment and plan: Is not having any active exacerbation at present. Does have small pleural effusions probably from getting IV fluids while he is been n.p.o. Will bump with IV Lasix. Bump with Solu-Medrol preop. 02/20/2017 he has severe COPD but not having any bronchospasm at present. 02/21/2017 no bronchospasm. O2 sat 92% on 4 L. Continuing IPPB with duo nebs. 02/22/2017 requiring Ventimask to keep O2 sat in the low 90s. He is alert. Recheck ABGs 02/23/2017 no active bronchospasm. Will change to nasal oxygen. 02/24/2017 he has a few rhonchi but otherwise COPD is quiet. Current Visit: No
[2017-02-24] MEDS ORDERED: FUROSEMIDE 20 MG/2 ML VIAL IV ONE (11:06)
--- NOTE | 2017-02-24 11:34 | Ultrasound Report ---
Right upper extremity venous Doppler. Indication: Arm swelling. There is a large amount of occluding thrombus present in the right jugular vein, subclavian vein, axillary vein, basilic vein and proximal brachial vein. The mid and distal brachial vein and cephalic vein are patent. Impression: Extensive occlusive thrombosis of the right upper extremity, involving the right jugular, subclavian, axillary, basilic, and proximal brachial. Scanning technologist notified Dr. Flood of these findings at the time of scanning. The Ultrasound images were captured and stored. PROCEDURE INTERPRETED AT [facility] DEPARTMENT OF RADIOLOGY Final Report Signed by: Dr. Marta Munson
[2017-02-24] MEDS: MORPHINE 2 MG/1 ML SYRINGE IV PRN ×2 (11:58→20:48)
[2017-02-24] MEDS: ENOXAPARIN 80 MG/0.8 ML SYRINGE SUBCUT SCH ×2 (13:10→23:31)
[2017-02-24] MEDS: DIGOXIN 0.125 MG TABLET PO SCH (13:11)
[2017-02-24] MEDS: SIMVASTATIN 10 MG TABLET PO SCH (20:52)
[2017-02-24] MEDS: DOCUSATE SODIUM 100 MG CAPSULE PO SCH (20:52)
[2017-02-24] MEDS ORDERED: APIXABAN 2.5 MG TABLET PO SCH (21:00)
[2017-02-25] MEDS: ALBUTEROL/IPRATROPIUM 3 ML NEB RESP TX SCH ×4 (00:17→19:38)
--- NOTE | 2017-02-25 07:49 | Event Note ---
He feels well. He is tolerating p.o. diet. He has had some flatus and bowel movement. He denies abdominal pain. His incision looks good. We are getting him up more. His lab work from yesterday looks okay.
[2017-02-25] MEDS: ONDANSETRON 4 MG/2 ML VIAL IV PRN (08:26)
--- NOTE | 2017-02-25 09:19 | Hospitalist Progress Note ---
Assessment and Plan (1) Hypokalemia Status: Resolved Assessment and plan: His potassium is 3.5 today. Current Visit: Yes (2) History of esophageal cancer Status: Chronic Assessment and plan: There was no evidence of recurrent esophageal cancer by EGD. Current Visit: No (3) COPD (chronic obstructive pulmonary disease) Status: Acute Assessment and plan: He appears stable. He is not experiencing any respiratory difficulties. He is being followed by pulmonary. Current Visit: No (4) Hypocalcemia Status: Acute Assessment and plan: His calcium today is 7.9. Current Visit: Yes (5) AVM (arteriovenous malformation) Status: Acute Assessment and plan: Patient underwent successful heater probe coagulation of bleeding esophageal AVMs. Current Visit: Yes (6) GI bleed Status: Acute Assessment and plan: Patient is status post GI bleed due to bleeding AVMs of the esophagus. He underwent successful heater probe coagulation. Colonoscopy demonstrated a right -sided colon cancer with no evidence of active bleeding. He does not report any evidence of overt bleeding at the present time. His hematocrit and hemoglobin are stable at 24.0 and 8.1 respectively. Current Visit: Yes (7) Anemia Status: Acute Assessment and plan: His hematocrit and hemoglobin today are 30.0 and 10.2 respectively. Current Visit: Yes Qualifiers: Iron deficiency anemia type: chronic blood loss (8) Colon cancer Status: Acute Assessment and plan: Patient is stable status post right hemicolectomy on 02/19/17. His incision appears to be healing well. He has begun ambulating in the room and begun eating. He is being followed by surgery. 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 twice daily. Current Visit: Yes Hospitalist: Subjective Interval history: Mr Ambrosio is doing somewhat better today. He has been out of bed to the bathroom with assistance. He has begun eating liquids and soft foods. He developed thrombosis of the right subclavian vein for which she has been treated with Lovenox. Exam - Constitutional Vitals: Period Temp Pulse Resp BP Sys/Finney Pulse Ox Last 24 Hr 97 F-98.3 F 65-120 15-22 98-155/68-92 90-98 General appearance: no acute distress - Head Head exam: Present: normal inspection - Neck Neck exam: Present: normal inspection - Respiratory Respiratory exam: Present: other (Decreased bibasilar breath sounds.) - Cardiovascular Cardiovascular exam: Present: regular rate and rhythm - GI/Abdominal GI/Abdominal exam: Present: normal bowel sounds, soft, other (Nontender with no palpable mass or hepatosplenomegaly. Well-healing surgical incision.) - Extremities Exam Extremities exam: Present: other (Edema of right upper extremity.) - Neurological Exam Neurological exam: Present: alert, oriented X3 - Skin Skin exam: Present: normal color, warm, intact Results - Labs CBC & BMP: 02/24/17 03:37 02/24/17 03:37 Quality Measures - VTE Contraindication to Pharmacological VTE Prophylaxis: High Risk of Bleeding
[2017-02-25] MEDS: ASPIRIN EC 81 MG TABLET PO SCH (10:01)
[2017-02-25] MEDS: APIXABAN 2.5 MG TABLET PO SCH ×2 (10:02→20:49)
[2017-02-25] MEDS: FLUCONAZOLE 100 MG TABLET PO SCH (10:02)
[2017-02-25] MEDS: LORazepam 1 MG TABLET PO SCH (10:02)
[2017-02-25] MEDS: PANTOPRAZOLE 40 MG TABLET PO SCH (10:02)
[2017-02-25] MEDS: MULTIVITAMIN (CENTRUM) TABLET PO SCH (10:02)
[2017-02-25] MEDS: DILTIAZEM CD 120 MG CAPSULE PO SCH (10:02)
[2017-02-25] MEDS: CETIRIZINE 10 MG TABLET PO SCH (10:03)
[2017-02-25] MEDS: BUDESONIDE/FORMOTEROL 160-4.5 INHALER 6 GM INH SCH ×2 (10:03→20:48)
--- NOTE | 2017-02-25 10:34 | Pulmonology Progress Note ---
Pulmonary - PN: Subj Interval history: This 89-year-old white male had a right colectomy yesterday for colon cancer. He had near obstruction. It was pretty much an emergency situation. He has severe COPD. Chronic atrial fibrillation. His urine output has been low his creatinine has risen slightly to 1.4. He is requiring Greg-Synephrine to keep his blood pressure up. The patient is alert and responsive and tolerating CPAP. He has a right pleural effusion which is probably sympathetic to his abdominal surgery. We will give him 500 mL bolus of normal saline and hope that we can get him extubated shortly. 02/21/2017 patient was extubated without difficulty yesterday. O2 sat 92% on 4 L. He sitting up in a chair. Still has marginal urine output. Still requiring Greg-Synephrine for hypotension. Cannot move him to the floor until we get the Greg-Synephrine weaned. He is getting a good bit of fluid and his weight is up 4 kg from yesterday. Chest x-ray is pending. He has had a right pleural effusion felt to be due to his abdominal surgery. We could easily get him overloaded however. He has not passed gas as yet. Only getting sips of liquid p.o. to take pills. 02/22/2017 patient says he is a bit confused but he is responsive. O2 sat 94% on 5 L simple facemask. Will change him to Ventimask. No chest x-ray this morning. He is now off Greg-Synephrine and his systolic blood pressures in the 130s. At this point will repeat IV Lasix and stop IV fluids. Check ABGs on the Ventimask. Recheck x-ray in the morning. He has had a pleural effusion since surgery. Has severe COPD and atrial fibrillation as well as atherosclerotic heart disease. 02/23/2017 patient sat up a good bit yesterday. Starting to have some bowel sounds. He has not passed gas as yet. Will remove Oliva catheter. Needs a little bit of IV fluids. Hopefully can start feeding him soon. Should be all right going to the floor. Changing him to nasal oxygen 02/24/2017 patient generally not feeling good. 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 He has been on long- term Eliquis at 2.5 mg twice daily. This was held for surgery. He has been on Lovenox 40 mg subcu daily the last few days. He developed swelling of his right arm. He has a Mediport catheter going into the right subclavian area. Dopplers of the right arm showed thrombosis in the veins there. At this point I would recommend using the Eliquis 2.5 mg twice daily again. Stop the Lovenox. He is at risk for full dose anticoagulants due to problems in his esophagus and post colon surgery. 02/25/2017 patient feeling better. He has actually had a bowel movement. Does have bowel sounds now. Needs increased activity. Likely would be a good candidate for swing bed. He is now on Eliquis 2.5 mg twice daily. He has a history of pulmonary thromboembolic disease and atrial fibrillation in the past. Has DVT of his right arm. Consider full dose Eliquis for a month, however he is at great risk for bleeding and falls and I would prefer using the lower dose. Exam (Progress Note) - Constitutional Vitals: Period Temp Pulse Resp BP Sys/Finney Pulse Ox Last 24 Hr 97 F-98.3 F 65-120 15- 98-155/68-92 90-98 Exam: Patient is alert, answers questions moves all 4 extremities. Systolic blood pressure is 135. Vital signs otherwise normal. He has atrial fibrillation with a slightly rapid pulse around 100. Pupils react to light. Neck is supple no bruits. Chest reveals no wheezes. He has some rhonchi and rales at the right base. Heart irregular without murmur. Abdomen soft. There is some tenderness at the surgical site. Minimal bowel sounds. Extremities no clubbing cyanosis or edema. Right arm is swollen. Has a right subclavian area Mediport catheter in place. Calves nontender. Results - Labs CBC & BMP: 02/24/17 03:37 02/24/17 03:37 Lab Results: I have reviewed the past 24 hour labs Assessment and Plan (1) Colon cancer Status: Acute Assessment and plan: He has near total obstruction with right colon cancer. Although he is at increased risk due to his underlying medical problems, agree with proceeding with surgery today. Patient has been a DO NOT RESUSCITATE in the past. I have had several discussions with him about this. This will need to be rescinded for his surgery but he does not want to be on prolonged life support. 02/20/2017 status post right colectomy for colon cancer with near total obstruction. Await final path report for staging. 02/21/2017 status post right colectomy. Pathology pending. Still has postop ileus. 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 See path report. 02/23/2017 status post resection with end-to-end anastomosis 02/24/2017 status post colon resection. 02/25/2017 status post resection of colon cancer with end-to-end anastomosis. Having bowel movements and is eating. Very weak. 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 02/20/2017 remote history of pulmonary thromboembolic disease. Need to get him on DVT prophylaxis again. He was on Eliquis prior to admission and I think we can start him back on half dose Eliquis as soon as he is taking oral medications. We will go with Lovenox for now. 02/21/2017 remote history of pulmonary embolism. Keep on Lovenox for DVT prophylaxis. Change to Eliquis when he is eating. 02/22/2017 again plan to change to oral Eliquis once patient is eating adequately. 02/23/2017 remote history of pulmonary embolism. On DVT prophylaxis at present. Resume Eliquis when starting to eat better. 02/24/2017 remote history of actually a submassive pulmonary embolism and on lifelong anticoagulants. Resuming Eliquis 2.5 mg twice daily because of the swollen right arm with positive Dopplers. 02/25/2017 remote history of submassive pulmonary embolism. Lifetime anticoagulants. Resuming Eliquis. Current Visit: No (4) Chronic atrial fibrillation Status: Chronic Assessment and plan: Continues on anticoagulant for atrial fibrillation. These will need to be held for surgery and started back postoperatively. 02/20/2017 rate is around 110. Not able to give his oral medications regularly. He is getting diltiazem intravenously 02/21/2017 rate is controlled. 02/22/2017 rate is around 110. 02/23/2017 heart rate around 100. 02/24/2017 heart rate is controlled. The Eliquis watch for that as well. It is being resumed. Current Visit: No (5) COPD (chronic obstructive pulmonary disease) Status: Chronic Assessment and plan: Is not having any active exacerbation at present. Does have small pleural effusions probably from getting IV fluids while he is been n.p.o. Will bump with IV Lasix. Bump with Solu-Medrol preop. 02/20/2017 he has severe COPD but not having any bronchospasm at present. 02/21/2017 no bronchospasm. O2 sat 92% on 4 L. Continuing IPPB with duo nebs. 02/22/2017 requiring Ventimask to keep O2 sat in the low 90s. He is alert. Recheck ABGs 02/23/2017 no active bronchospasm. Will change to nasal oxygen. 02/24/2017 he has a few rhonchi but otherwise COPD is quiet. 02/25/2017 remarkably he has not had an exacerbation of his COPD through all the surgery and postoperative course. Continuing home COPD meds. Current Visit: No
[2017-02-25] MEDS: metroNIDAZOLE INJ 500 MG in PREMIX 1 EACH IV SCH ×2 (12:27→23:31)
[2017-02-25] MEDS: DIGOXIN 0.125 MG TABLET PO SCH (12:29)
[2017-02-25] MEDS: DOCUSATE SODIUM 100 MG CAPSULE PO SCH (20:49)
[2017-02-25] MEDS: SIMVASTATIN 10 MG TABLET PO SCH (20:49)
[2017-02-26] MEDS: ALBUTEROL/IPRATROPIUM 3 ML NEB RESP TX SCH ×4 (00:30→20:07)
[2017-02-26] MEDS: MORPHINE 2 MG/1 ML SYRINGE IV PRN ×3 (01:06→20:12)
[2017-02-26 06:34] LABS: Basophils % 0.1 % (0.0-0.8); Eosinophils # 0.9 10*3/uL (0.0-0.87); Eosinophils % 7.8 % (0.00-10.9); Hematocrit 30.3 VOL% (42.0-52.0); Hemoglobin 10.2 GM/DL (14.0-18.0); Immature Granulocytes % 0.6 %; Immature Granulocytes Absolute 0.07 #; Lymphocytes # 1.5 10*3/uL (1.4-4.0); Lymphocytes % 13.7 % (21.2-54.2); Mean Corpuscular HGB Conc 33.7 GM/DL (32-36); Mean Corpuscular Hemoglobin 28 PG (27-34); Mean Corpuscular Volume 82.3 FL (87-102); Mean Platelet Volume 10.3 FL (9.6-12.0); Monocytes # 0.9 10*3/uL (0.11-0.8); Monocytes % 8.4 % (1.7-12.7); Neutrophils # 7.6 10*3/uL (1.4-7.4); Neutrophils % 69.4 % (38.7-73.9); Platelet Count 208 T/CUMM (130-400); Red Blood Count 3.68 MC/CUMM (3.8-5.5)
[2017-02-26 07:03] LABS: Calcium 7.3 MG/DL (8.5-10.1); Osmolality,Calculated 282.3 MOS/KG (273-304); Potassium 3.3 MMOL/L (3.5-5.1)
--- NOTE | 2017-02-26 07:05 | Event Note ---
He feels well. He is tolerating a diet and having bowel movements. His abdomen and his incision appear fine with no signs of infection. He will probably need to go to a swing bed. I think he is" however he could go to a swing bed any time if okay medically.
--- NOTE | 2017-02-26 08:09 | Pulmonology Progress Note ---
Pulmonary - PN: Subj Interval history: This 89-year-old white male had a right colectomy yesterday for colon cancer. He had near obstruction. It was pretty much an emergency situation. He has severe COPD. Chronic atrial fibrillation. His urine output has been low his creatinine has risen slightly to 1.4. He is requiring Greg-Synephrine to keep his blood pressure up. The patient is alert and responsive and tolerating CPAP. He has a right pleural effusion which is probably sympathetic to his abdominal surgery. We will give him 500 mL bolus of normal saline and hope that we can get him extubated shortly. 02/21/2017 patient was extubated without difficulty yesterday. O2 sat 92% on 4 L. He sitting up in a chair. Still has marginal urine output. Still requiring Greg-Synephrine for hypotension. Cannot move him to the floor until we get the Greg-Synephrine weaned. He is getting a good bit of fluid and his weight is up 4 kg from yesterday. Chest x-ray is pending. He has had a right pleural effusion felt to be due to his abdominal surgery. We could easily get him overloaded however. He has not passed gas as yet. Only getting sips of liquid p.o. to take pills. 02/22/2017 patient says he is a bit confused but he is responsive. O2 sat 94% on 5 L simple facemask. Will change him to Ventimask. No chest x-ray this morning. He is now off Greg-Synephrine and his systolic blood pressures in the 130s. At this point will repeat IV Lasix and stop IV fluids. Check ABGs on the Ventimask. Recheck x-ray in the morning. He has had a pleural effusion since surgery. Has severe COPD and atrial fibrillation as well as atherosclerotic heart disease. 02/23/2017 patient sat up a good bit yesterday. Starting to have some bowel sounds. He has not passed gas as yet. Will remove Oliva catheter. Needs a little bit of IV fluids. Hopefully can start feeding him soon. Should be all right going to the floor. Changing him to nasal oxygen 02/24/2017 patient generally not feeling good. 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 He has been on long- term Eliquis at 2.5 mg twice daily. This was held for surgery. He has been on Lovenox 40 mg subcu daily the last few days. He developed swelling of his right arm. He has a Mediport catheter going into the right subclavian area. Dopplers of the right arm showed thrombosis in the veins there. At this point I would recommend using the Eliquis 2.5 mg twice daily again. Stop the Lovenox. He is at risk for full dose anticoagulants due to problems in his esophagus and post colon surgery. 02/25/2017 patient feeling better. He has actually had a bowel movement. Does have bowel sounds now. Needs increased activity. Likely would be a good candidate for swing bed. He is now on Eliquis 2.5 mg twice daily. He has a history of pulmonary thromboembolic disease and atrial fibrillation in the past. Has DVT of his right arm. Consider full dose Eliquis for a month, however he is at great risk for bleeding and falls and I would prefer using the lower dose. 02/26/2017 patient is eating a little bit and has had a bowel movement. Has not been out of bed. We need to get physical therapy to get him up. Agree that a swing bed would be the next step for him. He is not able to take care of himself at home yet. Exam (Progress Note) - Constitutional Vitals: Period Temp Pulse Resp BP Sys/Finney Pulse Ox Last 24 Hr 97.1 F-97.9 F 87-112 16-26 106-139/44-81 91-99 Exam: Patient is alert and oriented. Systolic blood pressure is 135. Vital signs otherwise normal. He has atrial fibrillation with a slightly rapid pulse around 100. Pupils react to light. Neck is supple no bruits. Chest reveals no wheezes. He has some rhonchi and rales at the right base. Heart irregular without murmur. Abdomen soft. There is some tenderness at the surgical site. Normal bowel sounds. Extremities no clubbing cyanosis or edema. Right arm is swollen. Has a right subclavian area Mediport catheter in place. Calves nontender. Results - Labs CBC & BMP: 02/26/17 04:43 02/26/17 04:43 Lab Results: I have reviewed the past 24 hour labs Assessment and Plan (1) Colon cancer Status: Acute Assessment and plan: He has near total obstruction with right colon cancer. Although he is at increased risk due to his underlying medical problems, agree with proceeding with surgery today. Patient has been a DO NOT RESUSCITATE in the past. I have had several discussions with him about this. This will need to be rescinded for his surgery but he does not want to be on prolonged life support. 02/20/2017 status post right colectomy for colon cancer with near total obstruction. Await final path report for staging. 02/21/2017 status post right colectomy. Pathology pending. Still has postop ileus. 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 See path report. 02/23/2017 status post resection with end-to-end anastomosis 02/24/2017 status post colon resection. 02/25/2017 status post resection of colon cancer with end-to-end anastomosis. Having bowel movements and is eating. Very weak. 02/26/2017 status post resection of colon cancer. Stage I. 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 02/20/2017 remote history of pulmonary thromboembolic disease. Need to get him on DVT prophylaxis again. He was on Eliquis prior to admission and I think we can start him back on half dose Eliquis as soon as he is taking oral medications. We will go with Lovenox for now. 02/21/2017 remote history of pulmonary embolism. Keep on Lovenox for DVT prophylaxis. Change to Eliquis when he is eating. 02/22/2017 again plan to change to oral Eliquis once patient is eating adequately. 02/23/2017 remote history of pulmonary embolism. On DVT prophylaxis at present. Resume Eliquis when starting to eat better. 02/24/2017 remote history of actually a submassive pulmonary embolism and on lifelong anticoagulants. Resuming Eliquis 2.5 mg twice daily because of the swollen right arm with positive Dopplers. 02/25/2017 remote history of submassive pulmonary embolism. Lifetime anticoagulants. Resuming Eliquis. 02/26/2017 remote history of pulmonary embolism. Has DVT in his right arm and is on half dose Eliquis now. Current Visit: No (4) Chronic atrial fibrillation Status: Chronic Assessment and plan: Continues on anticoagulant for atrial fibrillation. These will need to be held for surgery and started back postoperatively. 02/20/2017 rate is around 110. Not able to give his oral medications regularly. He is getting diltiazem intravenously 02/21/2017 rate is controlled. 02/22/2017 rate is around 110. 02/23/2017 heart rate around 100. 02/24/2017 heart rate is controlled. The Eliquis was for that as well. It is being resumed. 02/26/2017 heart rate controlled. Current Visit: No (5) COPD (chronic obstructive pulmonary disease) Status: Chronic Assessment and plan: Is not having any active exacerbation at present. Does have small pleural effusions probably from getting IV fluids while he is been n.p.o. Will bump with IV Lasix. Bump with Solu-Medrol preop. 02/20/2017 he has severe COPD but not having any bronchospasm at present. 02/21/2017 no bronchospasm. O2 sat 92% on 4 L. Continuing IPPB with duo nebs. 02/22/2017 requiring Ventimask to keep O2 sat in the low 90s. He is alert. Recheck ABGs 02/23/2017 no active bronchospasm. Will change to nasal oxygen. 02/24/2017 he has a few rhonchi but otherwise COPD is quiet. 02/25/2017 remarkably he has not had an exacerbation of his COPD through all the surgery and postoperative course. Continuing home COPD meds. 02/26/2017 continuing bronchodilators. O2 sats look good. Current Visit: No
[2017-02-26] MEDS: APIXABAN 2.5 MG TABLET PO SCH ×2 (09:02→20:11)
[2017-02-26] MEDS: MULTIVITAMIN (CENTRUM) TABLET PO SCH (09:02)
[2017-02-26] MEDS: FLUCONAZOLE 100 MG TABLET PO SCH (09:02)
[2017-02-26] MEDS: LORazepam 1 MG TABLET PO SCH (09:02)
[2017-02-26] MEDS: PANTOPRAZOLE 40 MG TABLET PO SCH (09:02)
[2017-02-26] MEDS: ASPIRIN EC 81 MG TABLET PO SCH (09:02)
[2017-02-26] MEDS: DILTIAZEM CD 120 MG CAPSULE PO SCH (09:02)
[2017-02-26] MEDS: CETIRIZINE 10 MG TABLET PO SCH (09:02)
[2017-02-26] MEDS: BUDESONIDE/FORMOTEROL 160-4.5 INHALER 6 GM INH SCH (09:12)
[2017-02-26] MEDS: metroNIDAZOLE INJ 500 MG in PREMIX 1 EACH IV SCH (11:55)
--- NOTE | 2017-02-26 11:57 | Case Mgmt Physician Query Form ---
TB Signs and Symptoms Screening ([place]) INSTRUCTIONS: To be completed annually on residents/staff with a significant Tuberculin Skin Test (TST) upon admission/hire or a prior significant TST. To be completed on all staff at hire. Please respond to each listed symptom with an (X) in either the "YES" or "NO" box. Do you currently have any of the following symptoms: YES NO ( ) ( x) A cough If yes, is it: ( ) Productive ( ) Non- productive ( ) ( x) Hemoptysis (spitting up blood) ( ) ( x) Chest pains ( ) ( x) Weight Loss ( ) ( x) Fever ( ) ( x) Night Sweats ( ) ( x) Weakness ( ) ( x) Loss of Appetite ( ) ( x) Difficulty Breathing If you answered YES" to any of the above questions, how long have symptoms been present? Comments: JOVITA
[2017-02-26] MEDS: DIGOXIN 0.125 MG TABLET PO SCH (11:59)
--- NOTE | 2017-02-26 13:58 | Hospitalist Progress Note ---
Hospitalist: Subjective Interval history: 89 year old male who was admitted with near obstructing right colon cancer s/p Rt hemicolectomy. Exam - Constitutional Vitals: Period Temp Pulse Resp BP Sys/Finney Pulse Ox Last 24 Hr 97.1 F-97.9 F 87-112 16-26 102-139/44-81 91-97 Exam: General: No Acute Distress HEENT: Normocephalic, atraumatic, Extra ocular movements intact Neck: Supple, No JVD Chest: Clear to auscultation B/L CV: S1 + S2 audible without murmur, gallop or rub Abd: soft, NT, Non-distended, BS + Ext: No edema Skin: No purpura, bruising or rash Rheumatologic: No Joint deformities Neurologic: Awake and alert Results - Labs CBC & BMP: 02/26/17 04:43 02/26/17 04:43 - Impressions Assessment and Plan: Colon cancer Status: Acute Assessment and plan: Patient is status post right hemicolectomy on 02/19/17. He is doing well. 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 twice daily. Current Visit: Yes History of esophageal cancer Status: Chronic Assessment and plan: There was no evidence of recurrent esophageal cancer by EGD. 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 He underwent successful heater probe coagulation. Anemia of acute GI blood loss Status: Acute Assessment and plan: Hematocrit has been stable Current Visit: Yes Paroxysmal atrial fibrillation Status: Chronic Assessment and plan: Cont Eliquis Current Visit: No Quality Measures - VTE Contraindication to Pharmacological VTE Prophylaxis: High Risk of Bleeding
[2017-02-26] MEDS: SIMVASTATIN 10 MG TABLET PO SCH (20:11)
[2017-02-26] MEDS: DOCUSATE SODIUM 100 MG CAPSULE PO SCH (20:11)
[2017-02-27] MEDS: metroNIDAZOLE INJ 500 MG in PREMIX 1 EACH IV SCH (00:57)
[2017-02-27] MEDS: ALBUTEROL/IPRATROPIUM 3 ML NEB RESP TX SCH ×3 (01:04→14:23)
[2017-02-27] MEDS ORDERED: MORPHINE 10 MG/1 ML VIAL IV PRN (02:19)
[2017-02-27] MEDS: BUDESONIDE/FORMOTEROL 160-4.5 INHALER 6 GM INH SCH ×2 (03:15→08:34)
--- NOTE | 2017-02-27 06:55 | Event Note ---
He feels well. His abdomen is benign. He is tolerating a diet. I am okay with him going to a swing bed at any time.
[2017-02-27] MEDS: LORazepam 1 MG TABLET PO SCH (08:31)
[2017-02-27] MEDS: DILTIAZEM CD 120 MG CAPSULE PO SCH (08:31)
[2017-02-27] MEDS: ASPIRIN EC 81 MG TABLET PO SCH (08:31)
[2017-02-27] MEDS: APIXABAN 2.5 MG TABLET PO SCH (08:31)
[2017-02-27] MEDS: PANTOPRAZOLE 40 MG TABLET PO SCH (08:31)
[2017-02-27] MEDS: FLUCONAZOLE 100 MG TABLET PO SCH (08:31)
[2017-02-27] MEDS: MULTIVITAMIN (CENTRUM) TABLET PO SCH (08:31)
[2017-02-27] MEDS: CETIRIZINE 10 MG TABLET PO SCH (08:32)
[2017-02-27] MEDS: ONDANSETRON 4 MG/2 ML VIAL IV PRN (08:35)
--- NOTE | 2017-02-27 08:51 | Pulmonology Progress Note ---
Pulmonary - PN: Subj Interval history: This 89-year-old white male had a right colectomy yesterday for colon cancer. He had near obstruction. It was pretty much an emergency situation. He has severe COPD. Chronic atrial fibrillation. His urine output has been low his creatinine has risen slightly to 1.4. He is requiring Greg-Synephrine to keep his blood pressure up. The patient is alert and responsive and tolerating CPAP. He has a right pleural effusion which is probably sympathetic to his abdominal surgery. We will give him 500 mL bolus of normal saline and hope that we can get him extubated shortly. 02/21/2017 patient was extubated without difficulty yesterday. O2 sat 92% on 4 L. He sitting up in a chair. Still has marginal urine output. Still requiring Greg-Synephrine for hypotension. Cannot move him to the floor until we get the Greg-Synephrine weaned. He is getting a good bit of fluid and his weight is up 4 kg from yesterday. Chest x-ray is pending. He has had a right pleural effusion felt to be due to his abdominal surgery. We could easily get him overloaded however. He has not passed gas as yet. Only getting sips of liquid p.o. to take pills. 02/22/2017 patient says he is a bit confused but he is responsive. O2 sat 94% on 5 L simple facemask. Will change him to Ventimask. No chest x-ray this morning. He is now off Greg-Synephrine and his systolic blood pressures in the 130s. At this point will repeat IV Lasix and stop IV fluids. Check ABGs on the Ventimask. Recheck x-ray in the morning. He has had a pleural effusion since surgery. Has severe COPD and atrial fibrillation as well as atherosclerotic heart disease. 02/23/2017 patient sat up a good bit yesterday. Starting to have some bowel sounds. He has not passed gas as yet. Will remove Oliva catheter. Needs a little bit of IV fluids. Hopefully can start feeding him soon. Should be all right going to the floor. Changing him to nasal oxygen 02/24/2017 patient generally not feeling good. 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 He has been on long- term Eliquis at 2.5 mg twice daily. This was held for surgery. He has been on Lovenox 40 mg subcu daily the last few days. He developed swelling of his right arm. He has a Mediport catheter going into the right subclavian area. Dopplers of the right arm showed thrombosis in the veins there. At this point I would recommend using the Eliquis 2.5 mg twice daily again. Stop the Lovenox. He is at risk for full dose anticoagulants due to problems in his esophagus and post colon surgery. 02/25/2017 patient feeling better. He has actually had a bowel movement. Does have bowel sounds now. Needs increased activity. Likely would be a good candidate for swing bed. He is now on Eliquis 2.5 mg twice daily. He has a history of pulmonary thromboembolic disease and atrial fibrillation in the past. Has DVT of his right arm. Consider full dose Eliquis for a month, however he is at great risk for bleeding and falls and I would prefer using the lower dose. 02/26/2017 patient is eating a little bit and has had a bowel movement. Has not been out of bed. We need to get physical therapy to get him up. Agree that a swing bed would be the next step for him. He is not able to take care of himself at home yet. 02/27/2017 patient still not eating very much. He sat up in a chair much of the day yesterday. He can be moved to the swing bed as soon as he is eating better. He is at risk for dehydration. Exam (Progress Note) - Constitutional Vitals: Period Temp Pulse Resp BP Sys/Finney Pulse Ox Last 24 Hr 97.1 F-98.3 F 86-105 18-22 102-114/53-73 90-100 Exam: Patient is alert and oriented. Systolic blood pressure is 115. Vital signs otherwise normal. He has atrial fibrillation with a slightly rapid pulse around 100. Pupils react to light. Neck is supple no bruits. Chest reveals no wheezes. He has some rhonchi and rales at the right base. Heart irregular without murmur. Abdomen soft. There is some tenderness at the surgical site. Normal bowel sounds. Extremities no clubbing cyanosis or edema. Right arm is swollen. Has a right subclavian area Mediport catheter in place. Calves nontender. Little change from yesterday. Results - Labs CBC & BMP: 02/26/17 04:43 02/26/17 04:43 Lab Results: I have reviewed the past 24 hour labs Assessment and Plan (1) Colon cancer Status: Acute Assessment and plan: He has near total obstruction with right colon cancer. Although he is at increased risk due to his underlying medical problems, agree with proceeding with surgery today. Patient has been a DO NOT RESUSCITATE in the past. I have had several discussions with him about this. This will need to be rescinded for his surgery but he does not want to be on prolonged life support. 02/20/2017 status post right colectomy for colon cancer with near total obstruction. Await final path report for staging. 02/21/2017 status post right colectomy. Pathology pending. Still has postop ileus. 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 See path report. 02/23/2017 status post resection with end-to-end anastomosis 02/24/2017 status post colon resection. 02/25/2017 status post resection of colon cancer with end-to-end anastomosis. Having bowel movements and is eating. Very weak. 02/26/2017 status post resection of colon cancer. Stage I. 02/27/2017 status post resection of colon cancer. 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 02/20/2017 remote history of pulmonary thromboembolic disease. Need to get him on DVT prophylaxis again. He was on Eliquis prior to admission and I think we can start him back on half dose Eliquis as soon as he is taking oral medications. We will go with Lovenox for now. 02/21/2017 remote history of pulmonary embolism. Keep on Lovenox for DVT prophylaxis. Change to Eliquis when he is eating. 02/22/2017 again plan to change to oral Eliquis once patient is eating adequately. 02/23/2017 remote history of pulmonary embolism. On DVT prophylaxis at present. Resume Eliquis when starting to eat better. 02/24/2017 remote history of actually a submassive pulmonary embolism and on lifelong anticoagulants. Resuming Eliquis 2.5 mg twice daily because of the swollen right arm with positive Dopplers. 02/25/2017 remote history of submassive pulmonary embolism. Lifetime anticoagulants. Resuming Eliquis. 02/26/2017 remote history of pulmonary embolism. Has DVT in his right arm and is on half dose Eliquis now. 02/27/2017 on chronic anticoagulants. Half dose Eliquis. Currently has DVT of right arm. Current Visit: No (4) Chronic atrial fibrillation Status: Chronic Assessment and plan: Continues on anticoagulant for atrial fibrillation. These will need to be held for surgery and started back postoperatively. 02/20/2017 rate is around 110. Not able to give his oral medications regularly. He is getting diltiazem intravenously 02/21/2017 rate is controlled. 02/22/2017 rate is around 110. 02/23/2017 heart rate around 100. 02/24/2017 heart rate is controlled. The Eliquis was for that as well. It is being resumed. 02/26/2017 heart rate controlled. 02/27/2017 again heart rate is controlled. Continuing on half dose Eliquis Current Visit: No (5) COPD (chronic obstructive pulmonary disease) Status: Chronic Assessment and plan: Is not having any active exacerbation at present. Does have small pleural effusions probably from getting IV fluids while he is been n.p.o. Will bump with IV Lasix. Bump with Solu-Medrol preop. 02/20/2017 he has severe COPD but not having any bronchospasm at present. 02/21/2017 no bronchospasm. O2 sat 92% on 4 L. Continuing IPPB with duo nebs. 02/22/2017 requiring Ventimask to keep O2 sat in the low 90s. He is alert. Recheck ABGs 02/23/2017 no active bronchospasm. Will change to nasal oxygen. 02/24/2017 he has a few rhonchi but otherwise COPD is quiet. 02/25/2017 remarkably he has not had an exacerbation of his COPD through all the surgery and postoperative course. Continuing home COPD meds. 02/26/2017 continuing bronchodilators. O2 sats look good. 02/27/2017 no active bronchospasm. Continuing oxygen and bronchodilators. Current Visit: No
[2017-02-27] MEDS ORDERED: MORPHINE 2 MG/1 ML SYRINGE IV PRN (09:30)
[2017-02-27] MEDS ORDERED: TUBERCULIN SKIN TEST 0.1 ML SYRINGE INTRADERM ONE (11:00)
[2017-02-27] MEDS: DIGOXIN 0.125 MG TABLET PO SCH (12:24)
[2017-02-27 12:27] VITALS: BP 115/51
--- NOTE | 2017-02-27 13:06 | Case Mgmt Physician Query Form ---
LONG STAY PHYSICIAN RECERTIFICATION *This form is to be completed for all Medicare patients before they reach day 20 of their hospitalization. Please complete each section as appropriate.* I certify that hospitalization, and continued hospitalization, for this patient is medically necessary as follows: 1) Reasons of either continued hospitalization of the patient for medical treatment or medically required diagnostic study or special or unusual services for cost outlier cases are as follows: 2) Estimated time patient will need to remain in hospital: 3) Plan for Post Hospital Care: ( ) Home with Primary Care Follow up ( ) Home with Home Health Follow up ( x) LTACH/ Acute Care Rehab/ SNF/Prison ( ) Other: If you have any questions, please contact me. Thank you, Kimberly Álvarez R.N. Case Management P: [phone] F: [phone] E: [email or web address] If you have any questions, please contact me. Thank you, Jordyn ORDONEZ Email:[email or web address]
--- NOTE | 2017-02-27 13:10 | Discharge Summary ---
Hospital Course - Hospital Course Hospital Course: 89 year old white male with a past medical history significant for hypertension , COPD, chronic bronchitis, atrial fibrillation who presents to the ED today 24 hours after discharge with complaints of nausea, vomiting, diarrhea and profound weakness. The patient was recently admitted to Dr. Boudreaux for similar complaints earlier this week. He was treated with supportive care and thought to have the symptoms resolved at the time of discharge. Patient reported that he almost immediately began having recurrent bouts of nausea, vomiting and diarrhea overnight. Patient denied any abrupt change in diet. Patient was hypotensive with blood pressure of 74/39 on admission however after IV fluid bolus his pressure has normalized. Patient was admitted to the hospital service for further evaluation and management. GI service was consulted. 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 Patient also underwent a colonoscopy which revealed an proximal ascending colon mass consistent with carcinoma. Neurosurgery Dr. Prema Zuniga was consulted who was scheduled for surgery and Dr. Toledo from pulmonology optimized his management to go ahead for surgery. Dr. Martin came to the OR and performed a right hemicolectomy with immediate removal of any adhesions as well. He did require some pressure support in ICU after surgery. Oncology Dr. Medina saw him as well and we will see him back in the office to discuss further options for chemotherapy as patient remained undecided on that issue. Patient started back on diet and is tolerating quite well. He did improve significantly but was otherwise deconditioned and it was felt that he would benefit from swing bed. social worker was consulted and patient is going to [facility] for rehab today. He also has DVT in his right arm is actually on Eliquis for that as well as his paroxysmal atrial fibrillation. He is moving his bowels quite fine. The patient has reached maximal hospital benefit and being discharged to swing bed today. Total discharge time 45 minutes. - Time spent with patient Time with patient DS: Greater than 30 minutes Diagnosis - Discharge Diagnosis (1) GI bleed Status: Resolved (2) Nausea vomiting and diarrhea Status: Resolved Discharge Plan - Discharge Data Disposition: Swing Bed, Hos Based, [facility] Condition at Discharge: Stable Discharge Diet: regular diet - Discharge Medications New Albuterol/Ipratropium Neb [Duoneb] 3 ml RESP TX RT Q6H #30 Apixaban [Eliquis] 2.5 mg PO BID #60 tablet Budesonide/Formoterol 160-4.5 [Symbicort 160-4.5] 2 puff INH BID #1 inhaler Diltiazem Cd Cap [Cardizem CD] 120 mg PO DAILY #30 capsule Fluconazole Tab [Diflucan Tab] 100 mg PO DAILY #10 tablet LORazepam TAB [Ativan Tab] 1 mg PO DAILY #30 tablet Ondansetron Odt Tab [Zofran Odt] 4 mg PO Q4H PRN #30 tablet PRN Reason: Nausea Pantoprazole Tab [Protonix Tab] 40 mg PO DAILY #30 tablet Potassium Chloride Cap/Tab [K Dur] 40 meq PO DAILY #30 tablet Prochlorperazine Tab [Compazine Tab] 10 mg PO BID PRN #60 tablet PRN Reason: Nausea/Vomiting Magnesium Hydroxide Susp [Milk of Magnesia] 30 ml PO DAILY PRN PRN Reason: Constipation Continue Simvastatin [Zocor] 10 mg PO DAILY Multivitamin [One Daily Multivitamin] 1 tablet PO DAILY HydrOXYzine PAMOATE CAP [Vistaril Cap] 25 mg PO QPM Furosemide 20 mg PO DAILY Flecainide [Tambocor] 100 mg PO BID Donepezil HCl 10 mg PO DAILY Docusate Sodium [Colace] 100 mg PO QPM Digoxin 125 mcg PO DAILY Cetirizine Tab [ZyrTEC Tab] 10 mg PO DAILY Budesonide/Formoterol 160-4.5 [Symbicort 160-4.5] 2 puff INH BID Aspirin [Ecotrin] 81 mg PO DAILY Apixaban [Eliquis] 2.5 mg PO BID #60 Theophylline ER Cap (24 Hr) [Tor-24] 300 mg PO DAILY #30 LORazepam TAB [Ativan Tab] 1 mg PO DAILY Prochlorperazine Tab [Compazine Tab] 10 mg PO BID PRN tablet PRN Reason: Nausea/Vomiting HYDROcodone/ACETAMIN 5-325 [Opp 5-325] 1 tablet PO Q6HR PRN #30 PRN Reason: Pain Discontinued Tiotropium Inhalation [Spiriva Handihaler] 18 mcg INH DAILY Potassium Chloride 10 meq PO DAILY Omeprazole [Prilosec] 20 mg PO DAILY Albuterol Neb [Proventil Neb] 0.63 mg INH Q6HR dilTIAZem HCl [Diltiazem HCl] 120 mg PO DAILY - Follow Up or Referral - Forms/Instructions Exam - Constitutional Vitals: Period Temp Pulse Resp BP Sys/Finney Pulse Ox Last 24 Hr 97.1 F-98.3 F 59-105 18-22 105-115/51-73 90-100 Exam: General: No Acute Distress HEENT: Normocephalic, atraumatic, Extra ocular movements intact Neck: Supple, No JVD Chest: Clear to auscultation B/L CV: S1 + S2 audible without murmur, gallop or rub Abd: soft, NT, Non-distended, BS + Ext: No edema Skin: No purpura, bruising or rash Rheumatologic: No Joint deformities Neurologic: no gross sensory deficits Discharge Results Procedures and tests throughout hospitalization: Pending Orders 02/10/17 16:35 Occult Blood, Stool Stat DS: Provider Date of admission: 02/10/17 14:20 Primary care physician: Rogelio Boudreaux MD Attending physician on admission: Sterling Garcia MD Consults: 02/10/17 16:58 Consult to Physician [CONS] Routine Comment: On-call physician/persistent diarrhea over 2 weeks Consulting Provider: Jamal Mitchell Consult to Specialist Group: Gastroenterology When should Consulting Provider be notified: In am Person Notified: dr. conner Date Notified: 02/11/17 Time Notified: 17:44 Consult Notification Comment: SPOKE TO [place] ON MON 02/16/17 10:32 Consult to Physician [CONS] Routine Comment: colon cancer Consulting Provider: Raulito Mcclain Consult to Specialist Group: Oncology When should Consulting Provider be notified: Now Person Notified: BAMBI Date Notified: 02/16/17 Time Notified: 11:35 02/16/17 13:26 Consult to Physician [CONS] Routine Comment: colon ca Consulting Provider: Arvind Lloyd III. Person Notified: prema 3 on cellphone Consult Notification Comment: CALLED DR LLOYD AND HE WERE AWARE OF CONSULT. ANDREE/INDIRA ALMANZA RN 02/21/17 20:56 Consult to Physical Therapy [CONS] Routine Reason for Physical Therapy: Evaluate and Treat 02/26/17 08:09 Consult to Physical Therapy [CONS] Routine Reason for Physical Therapy: Weakness Start Therapy: Today Consult Comment: Needs to get out of bed, evaluation for swing bed placement Discharging clinician: Anay Reyna MD
== END 2017-02-27 14:41 | disposition swing bed (61) | DRG 330 ==
LOC: N.ED 09:58 → N.EDINP 14:20 → SUATTDRO 14:20 → N.2E 16:56 → N.ICU 02-19 13:13 → N.2E 02-23 12:27
PROVIDERS: ADMIT Internal Medicine Infectious Disease; ATTEND Hospitalist

== ENCOUNTER 2017-03-10 15:28 | Inpatient (IN) ==
--- NOTE | 2017-03-10 16:07 | XRay Report ---
XR chest 1V portable Indication: Shortness of breath Comparison: 23 February 2017 Findings: The heart and mediastinum are stable in size and configuration. Right subclavian Port-A-Cath is unchanged in position. The pulmonary vascularity is slightly increased with bilateral increased interstitial lung density. No other lung infiltrates, effusions, pneumothorax or other abnormality is demonstrated. Impression: Findings suggest mild cardiac decompensation. PROCEDURE INTERPRETED AT [facility] DEPARTMENT OF RADIOLOGY Final Report Signed by: Dr. Freddie Grijalva
--- NOTE | 2017-03-10 16:12 | CT Report ---
CT brain Indication: Head injury follow Comparison: 03 March 2017 Technique: Axial CT imaging of the brain is performed without contrast with 3 mm increments. Findings: No evidence of hemorrhage, mass mass effect midline shift or acute infarct seen. There is severe diffuse cerebral atrophy. There are areas of decreased density seen within the white matter. Otherwise the brain parenchyma attenuation and differentiation appears within normal limits. The ventricles and cisterns are appropriate in caliber. No cranial or skull base abnormality is identified. Impression: No evidence of acute process or interval change. This CT exam was performed using one or more the following dose reduction techniques: Automated exposure control, adjustment of the MA and/or KV according to patient size, or use of iterative reconstruction technique. PROCEDURE INTERPRETED AT [facility] DEPARTMENT OF RADIOLOGY Final Report Signed by: Dr. Freddie Grijalva
--- NOTE | 2017-03-10 16:14 | CT Report ---
CT cervical spine Indication: Neck pain after injury Comparison: [facility] 2017 Technique: Axial CT imaging of the cervical spine is performed without contrast. Computer reformatting is viewed in the sagittal and coronal planes. Findings: No fracture is seen. Alignment of the cervical spine is within normal limits. Vertebral body heights are normal. Degenerative changes are stable in appearance. No other abnormality is demonstrated. Impression: No evidence of acute injury demonstrated This CT exam was performed using one or more the following dose reduction techniques: Automated exposure control, adjustment of the MA and/or KV according to patient size, or use of iterative reconstruction technique. PROCEDURE INTERPRETED AT [facility] DEPARTMENT OF RADIOLOGY Final Report Signed by: Dr. Freddie Grijalva
[2017-03-10 16:19] LABS: Apearance,Urine CLEAR (Clear); Bilirubin,Urine Negative (Negative); Blood, Urine Small mg/dL (Negative); Glucose,Urine (UA) Negative (Negative); Ketones,Urine Negative (Negative); Mucus,Urine Occasional /LPF (Occasional); Nitrite,Urine Negative (Negative); Protein,Urine Negative; RBC,Urine 4 /HPF (0-4); Squamous Epithelial Cell,Urine Occasional /HPF (0-10); Urine Color Yellow (Yellow); Urine Specific Gravity 1.012 (1.001-1.035); Urine Urobilinogen < 2.0 EU/DL (0.2-1.0); WBC,Urine 1 /HPF (0-6)
--- NOTE | 2017-03-10 16:32 | Order Completion Report ---
See report scanned to EMR
[2017-03-10 16:41] LABS: Basophils # 0.1 10*3/uL (0.0-0.2); Basophils % 0.4 % (0.0-0.8); Eosinophils # 0.2 10*3/uL (0.0-0.87); Eosinophils % 1.2 % (0.00-10.9); Hematocrit 28.6 VOL% (42.0-52.0); Hemoglobin 9.6 GM/DL (14.0-18.0); Immature Granulocytes % 0.5 %; Immature Granulocytes Absolute 0.09 #; Lymphocytes # 0.8 10*3/uL (1.4-4.0); Lymphocytes % 4.9 % (21.2-54.2); Mean Corpuscular HGB Conc 33.6 GM/DL (32-36); Mean Corpuscular Hemoglobin 28 PG (27-34); Mean Corpuscular Volume 82.9 FL (87-102); Mean Platelet Volume 9.6 FL (9.6-12.0); Monocytes % 5.8 % (1.7-12.7); Neutrophils # 14.6 10*3/uL (1.4-7.4); Neutrophils % 87.2 % (38.7-73.9); Platelet Count 337 T/CUMM (130-400); Red Blood Count 3.45 MC/CUMM (3.8-5.5); Red Cell Distribution Width 16.6 % (9.3-17.3); White Blood Count 16.8 T/CUMM (4-12)
[2017-03-10 16:51] LABS: Albumin 2.4 G/DL (3.4-5.0); Bilirubin,Total 0.4 MG/DL (0.2-1.0); Calcium 8.1 MG/DL (8.5-10.1); Potassium 4.3 MMOL/L (3.5-5.1); Total Protein 5.5 G/DL (6.4-8.3)
[2017-03-10] MEDS ORDERED: LEVOFLOXACIN INJ 500 MG in PREMIX 1 EACH IV STA (17:39)
[2017-03-10] MEDS ORDERED: SODIUM CHLORIDE 0.9% 500 ML IV STA (17:39)
--- NOTE | 2017-03-10 18:32 | Hospitalist History & Physical ---
Assessment and Plan (1) Leucocytosis Status: Acute Assessment and plan: Admit patient to [facility] bed. Obtain blood cultures. UA negative. Lactic acid 1.2. Repeat CBC. Start patient on IV antibiotics (Zosyn and vancomycin) continue to monitor patient. Start IV fluids @ 50 ml/hr Current Visit: Yes (2) COPD (chronic obstructive pulmonary disease) Status: Chronic Current Visit: No (3) History of esophageal cancer Status: Chronic Current Visit: No (4) Anemia Status: Acute Current Visit: No (5) Chronic atrial fibrillation Status: Chronic Current Visit: No History of Present Illness Chief complaint: Fall History of present illness: Mr. Ambrosio is a 89 year old white male with history of GERD, hypertension, afib , COPD, pneumonia, and recent colon cancer presented to the ED today via EMS for further evaluation after a fall at the [facility]. The patient was attempted to use the bathroom and afterwards he became unbalanced and fell over backwards in his wheelchair and struck his head on the wall. Patient did not lose consciousness. Patient was brought in for evaluation and noted to have a fever of 102 when he arrived. Patient complains of a mild cough but denies any chest pain, nausea, vomiting, or diarrhea. Patient denies mild abdominal pain from his r recent partial colectomy. Labs were obtained and patient was also noted to have a white count of 16.8. Chest x-ray was performed and showed mild decompensation. Head CT was negative. Patient's case was discussed with ER physician and hospitalist Dr. Reyna. Patient will be admitted to the hospitalist service for further evaluation and treatment. CODE STATUS had been discussed with the patient and the patient wishes to be a DNR. Home meds have been reviewed and reconciled. Home Medications Medication Instructions Recorded Confirmed Type Aspirin [Ecotrin] 81 mg PO DAILY 02/06/17 03/10/17 History Cetirizine Tab [ZyrTEC Tab] 10 mg PO DAILY 02/06/17 03/10/17 History Digoxin 125 mcg PO DAILY 02/06/17 03/10/17 History Docusate Sodium [Colace] 100 mg PO QPM PRN 02/06/17 03/10/17 History Donepezil HCl 10 mg PO DAILY 02/06/17 03/10/17 History Flecainide [Tambocor] 100 mg PO BID 02/06/17 03/10/17 History Furosemide 20 mg PO DAILY 02/06/17 03/10/17 History HydrOXYzine PAMOATE CAP [Vistaril 25 mg PO BEDTIME PRN 02/06/17 03/10/17 History Cap] LORazepam TAB [Ativan Tab] 1 mg PO DAILY 02/06/17 03/10/17 History Multivitamin [One Daily 1 tablet PO DAILY 02/06/17 03/10/17 History Multivitamin] Simvastatin [Zocor] 10 mg PO BEDTIME 02/06/17 03/10/17 History Albuterol/Ipratropium Neb [Duoneb] 3 ml RESP TX RT Q6H #30 02/27/17 03/10/17 Rx Apixaban [Eliquis] 2.5 mg PO BID #60 02/27/17 03/10/17 Rx Budesonide/Formoterol 160-4.5 2 puff INH BID #1 inhaler 02/27/17 03/10/17 Rx [Symbicort 160-4.5] Diltiazem Cd Cap [Cardizem CD] 120 mg PO DAILY #30 capsule 02/27/17 03/10/17 Rx Fluconazole Tab [Diflucan Tab] 100 mg PO DAILY #10 tablet 02/27/17 03/10/17 Rx HYDROcodone/ACETAMIN 5-325 [[place] 1 tablet PO Q6HR PRN #30 02/27/17 03/10/17 Rx 5-325] Magnesium Hydroxide Susp [Milk of 30 ml PO DAILY PRN 02/27/17 03/10/17 Rx Magnesia] Ondansetron Odt Tab [Zofran Odt] 4 mg PO Q4H PRN #30 tablet 02/27/17 03/10/17 Rx Pantoprazole Tab [Protonix Tab] 40 mg PO DAILY #30 tablet 02/27/17 03/10/17 Rx Potassium Chloride Cap/Tab [K Dur] 40 meq PO DAILY #30 tablet 02/27/17 03/10/17 Rx Theophylline ER Cap (24 Hr) 300 mg PO DAILY #30 02/27/17 03/10/17 Rx [Tor-24] Prochlorperazine Tab [Compazine 10 mg PO Q12H PRN 03/10/17 03/10/17 History Tab] Allergies Allergy/AdvReac Type Severity Reaction Status Date / Time latex Allergy Intermediate ITCHING Verified 03/03/17 20:07 Cephalosporins Allergy RASH Verified 03/03/17 20:07 meperidine [From Demerol] Allergy RASH Verified 03/03/17 20:07 Medical,Surgical,& Family Hx - Medical History Cardio: History of: Cardiac Dysrhythmia (a fib), Hypertension No history of: Aneurysm, Cerebrovascular Disease, Congenital Heart Disease, CHF, CAD, OR, Pacemaker, PVD, Valvular Heart Disease, Cardiovascular Problems Psychological: History of: Anxiety Disorders (post traumatic stress disorder) No history of: ADHD, Behavior Problems, Bipolar Disorder, Depression, Previous Suicide Attempt, Psychiatric/Substance Abuse Tx, Schizophrenia, Violent Behavior, Psychiatric Problems Neurology: No history of: Brain Aneurysm, Cerebral Hemorrhage, Cerebrovascular Accident , Cerebral Palsy, Dementia, Migraine, Multiple Sclerosis, Parkinson's Disease, Peripheral Neuropathy, Seizures, TIA, Vertigo, Neurologocal Cancer HEENT: History of: Eye Problem (cataract) No history of: Ear Problem, Dental Problems, Glaucoma, Oral Cancer, HEENT Problems Endocrine: History of: Dyslipidemia No history of: Adrenal Disease, Diabetes Mellitus (IDDM), Diabetes Mellitus ( NIDDM), Thyroid Disorder, Endocrine Cancer, Endocrine Problems Rheumatology: History of;: Rheumatological Problems No history of;: Fibromyalgia, Gout, Myasthenia Gravis, Psoriasis, Rheumatoid Arthritis, Sjogrens, Systemic Lupus Erythematosus Respiratory: History of: Bronchitis (chronic), COPD, Intubation, Pneumonia No history of: Asthma, Obstructive Sleep Apnea, Pulmonary Embolism, Pulmonary Hypertension, Lung Cancer, Respiratory Problems Renal: No history of: Renal (Kidney) Cancer, Dialysis, Renal Failure, Renal Problems Genitourinary: No history of: Bladder Problem, Kidney Stones, Prostate Problems, Recurring Urinary Tract Infections, Genitourinary Cancer, Problems Gastrointestinal: History of: GERD, Polyps, Gastrointestinal Cancer (esophageal) No history of: Bowel Obstruction, Clostridium Difficile, Crohn's Disease, Diverticulitis/ Diverticulosis, Esophageal Varices, Gastrointestinal Bleed, Hemorrhoids, Hematochezia, Hepatitis, Liver Problems, Pancreatitis, Ulcerative Colitis, GI Problems Musculoskeletal: History of: Musculoskeletal Problems (right knee injury in [place] 1950) No history of: Amputation, Back/Neck Problems, Degenerative Disk Disease, Herniated Disk, Osteoporosis, Musculoskeletal Cancer Hematology: No history of: Anemia, Blood Transfusion Reaction, Bleeding Problems, Clotting Problems, Sickle Cell Disease, Hematologic Cancer, Blood Disorders Reproductive: No histroy: Penile Disorder, Sexually Transmitted Disease, Reproductive Cancer, Reproductive Problems Other: History of: Cancer (ESOPHAGEAL) No history of: Anesthesia Reactions, Anaphylaxis, Eczema, HIV, Malignant Hyperthermia, MRSA, Vancomycin-Resistant Enterococci, Skin Problems, Miscellaneous Medical Problems - Surgical History Cardiac Surgeries: Sugical HX of: Femoral-Popliteal Bypass Graft, Vascular Access Devices (mediport) Patient Denies: Cardiac Catheterization, Cardiac Surgery, Carotid Endarterectomy, Internal Defibrillator Thoracic Surgeries: Patient denies;: Kidney (Renal Surgery), Lithotripsy, Nephrectomy, Organ Transplant, Lobectomy Neurologic Surgeries: Patient denies: Brain Aneurysm, Cerebral Hemorrhage, Neurologic Surgery HEENT Surgeries: Surgical HX of: Eye Surgery (cataract), Tonsilectomy & Adenoidectomy Patient denies: Carotid Endarterectomy, Thyroid Surgery Abdominal Surgeries: Surgical HX of: Abdominal Surgery, Appendectomy, Cholecystectomy, Colonoscopy, EGD Patient denies: Gastric Bypass Surgery, Hernia Repair, Splenectomy Reproductive Surgeries: Patient denies;: Breast Surgery, Cystoscopy, Genitourinary Surgery, Prostate Surgery, Vasectomy Orthopedic Surgeries: Surgical HX of;: Implanted Devices (MEDIPORT) Patient denies;: Orthopedic Surgery, Spinal Surgery, Total Hip Replacement, Total Knee Replacement - Family History Family History: Reports;: Family Cancer (SISTER), Family Heart Disease (dad), Family Stroke (mom) Denies;: Family Anesthesia Reaction, Family Diabetes, Family Hypertension, Family Psychiatric Problems - Social History Smoking Status: Former smoker Marital Status: Single Lives With:: Alone (Patient currently is rehab facility after recent surgery) Functional capacity: independent ambulation 12 point system: reviewed and no additional remarkable complaints except as stated - Constitutional Constitutional: Present: fever(s), weakness - EENT Eyes: Absent: requires corrective lense Ears: Present: decreased hearing Nose, mouth and throat: Absent: headache(s) - Cardiovascular Cardiovascular: Absent: dyspnea, edema - Respiratory Respiratory: Present: cough - Gastrointestinal Gastrointestinal: Present: abdominal pain. Absent: nausea, vomiting - Genitourinary Genitourinary: Absent: difficulty urinating - Musculoskeletal Musculoskeletal: Absent: back pain - Neurological Neurological: Present: frequent falls - Psychiatric Psychiatric: Absent: depression - Endocrine Endocrine: Absent: cold intolerance - Hematologic/Lymphatic Hematologic/Lymphatic: Present: easy bleeding, easy bruising Exam - Constitutional Vitals: Period Temp Pulse Resp BP Sys/Finney Pulse Ox Last 24 Hr 102.1 F-102.1 F 82-92 20-31 113-132/46-64 91-97 General appearance: normal weight, no acute distress - Head Head exam: Present: normal inspection, normocephalic - Eye Eye exam: Present: EOMI Pupils: Present: AMOR - Respiratory Respiratory exam: Absent: wheezes - Cardiovascular Cardiovascular exam: Present: regular rate and rhythm - GI/Abdominal GI/Abdominal exam: Present: normal bowel sounds, soft. Absent: tenderness - Extremities Exam Extremities exam: Present: full ROM. Absent: edema - Neurological Exam Neurological exam: Present: alert, oriented X3 - Psychiatric Psychiatric exam: Present: normal affect, normal mood - Skin Skin exam: Present: normal color, warm, dry Results - Labs CBC & BMP: 03/10/17 16:08 03/10/17 16:08 Lab Results: I have reviewed the past 24 hour labs
[2017-03-10] MEDS ORDERED: LEVOFLOXACIN INJ 100 ML IV ONE (18:45)
[2017-03-10] MEDS ORDERED: DOCUSATE SODIUM 100 MG CAPSULE PO PRN (19:24)
[2017-03-10] MEDS ORDERED: MAGNESIUM HYDROXIDE SUSP 30 ML UDCUP PO PRN (19:24)
[2017-03-10] MEDS ORDERED: INFLUENZA VIRUS VACCINE 0.5 ML SYRINGE IM ONE (19:32)
[2017-03-10] MEDS: ALBUTEROL/IPRATROPIUM 3 ML NEB RESP TX SCH (19:54)
[2017-03-10] MEDS: SODIUM CHLORIDE 0.9% 1,000 ML IV SCH (20:36)
[2017-03-10] MEDS: VANCOMYCIN INJ 1,000 MG in SODIUM CHLORIDE 0.9% 250 ML IV SCH (20:42)
[2017-03-10] MEDS: APIXABAN 2.5 MG TABLET PO SCH (20:46)
[2017-03-10] MEDS: HydrOXYzine PAMOATE 25 MG CAPSULE PO PRN (20:46)
[2017-03-10] MEDS: BUDESONIDE/FORMOTEROL 160-4.5 INHALER 6 GM INH SCH (20:47)
[2017-03-10] MEDS: FLECAINIDE 100 MG TABLET PO SCH (20:47)
[2017-03-10] MEDS: SIMVASTATIN 10 MG TABLET PO SCH (20:47)
[2017-03-10] MEDS: AZTREONAM 1,000 MG in SODIUM CHLORIDE 0.9% 50 ML IV SCH (21:52)
[2017-03-11] MEDS: ALBUTEROL/IPRATROPIUM 3 ML NEB RESP TX SCH ×4 (00:52→19:38)
[2017-03-11 06:49] LABS: Basophils # 0.1 10*3/uL (0.0-0.2); Basophils % 0.4 % (0.0-0.8); Eosinophils # 0.3 10*3/uL (0.0-0.87); Hematocrit 25.7 VOL% (42.0-52.0); Hemoglobin 8.7 GM/DL (14.0-18.0); Immature Granulocytes % 0.7 %; Lymphocytes # 1.2 10*3/uL (1.4-4.0); Lymphocytes % 8.5 % (21.2-54.2); Mean Corpuscular HGB Conc 33.9 GM/DL (32-36); Mean Corpuscular Hemoglobin 28 PG (27-34); Mean Corpuscular Volume 82.4 FL (87-102); Mean Platelet Volume 10.5 FL (9.6-12.0); Monocytes % 7.6 % (1.7-12.7); Neutrophils # 10.9 10*3/uL (1.4-7.4); Neutrophils % 80.8 % (38.7-73.9); Platelet Count 283 T/CUMM (130-400); Red Blood Count 3.12 MC/CUMM (3.8-5.5); Red Cell Distribution Width 16.6 % (9.3-17.3); White Blood Count 13.6 T/CUMM (4-12)
[2017-03-11 07:26] LABS: Calcium 7.5 MG/DL (8.5-10.1); Magnesium 1.3 MG/DL (1.8-2.4); Osmolality,Calculated 275.5 MOS/KG (273-304); Potassium 3.8 MMOL/L (3.5-5.1)
[2017-03-11 07:45] LABS: Acanthocytes Few; Elliptocytes 1+; Hypochromasia Slight; Macrocytosis 1+
[2017-03-11] MEDS: SODIUM CHLORIDE 0.9% 1,000 ML IV SCH ×2 (10:05→22:13)
[2017-03-11] MEDS: DILTIAZEM CD 120 MG CAPSULE PO SCH (10:06)
[2017-03-11] MEDS: DONEPEZIL 10 MG TABLET PO SCH (10:06)
[2017-03-11] MEDS: FLECAINIDE 100 MG TABLET PO SCH ×2 (10:06→20:46)
[2017-03-11] MEDS: ASPIRIN EC 81 MG TABLET PO SCH (10:06)
[2017-03-11] MEDS: AZTREONAM 1,000 MG in SODIUM CHLORIDE 0.9% 50 ML IV SCH ×2 (10:06→22:09)
[2017-03-11] MEDS: POTASSIUM CHLORIDE 20 MEQ TABLET PO SCH (10:07)
[2017-03-11] MEDS: DIGOXIN 0.125 MG TABLET PO SCH (10:07)
[2017-03-11] MEDS: PANTOPRAZOLE 40 MG TABLET PO SCH (10:07)
[2017-03-11] MEDS: APIXABAN 2.5 MG TABLET PO SCH ×2 (10:07→20:46)
[2017-03-11] MEDS: MULTIVITAMIN (CENTRUM) TABLET PO SCH (10:07)
[2017-03-11] MEDS: CETIRIZINE 10 MG TABLET PO SCH (10:07)
[2017-03-11] MEDS: THEOPHYLLINE ER (24 HR) 300 MG CAPSULE PO SCH (10:08)
[2017-03-11] MEDS: BUDESONIDE/FORMOTEROL 160-4.5 INHALER 6 GM INH SCH ×2 (10:19→22:09)
--- NOTE | 2017-03-11 13:44 | Hospitalist Progress Note ---
Assessment and Plan (1) COPD (chronic obstructive pulmonary disease) Status: Chronic Assessment and plan: Patient presented with acute exacerbation of COPD with associated left lower lobe pneumonia. Some rhonchi in the left upper lobe today's auscultation; patient is in no respiratory distress Current Visit: No (2) Left lower lobe pneumonia Status: Acute Assessment and plan: Continue antibiotics as is now Current Visit: No Qualifiers: Pneumonia type: due to unspecified organism Qualified Code(s): J18.1 - Lobar pneumonia, unspecified organism Hospitalist: Subjective Interval history: Patient has been seen interviewed and examined chart has been reviewed admitted to the hospital following a fall at the snf where he he was trying to back himself while in a cruciate wheelchair tilted to hit his head on the floor on the wall. Patient states that this happened twice on this wheelchair. From what he told me that institution where he was nausea about what had happened. He denies any headaches that has no focal neurologic deficits at this time. While seen at the emergency room patient was found to have significant leukocytosis and what he thought to be pneumonia superimposed on chronic obstructive pulmonary disease symptoms. Exam - Constitutional Vitals: Period Temp Pulse Resp BP Sys/Finney Pulse Ox Last 24 Hr 97.0 F-102.1 F 72-92 17-31 92-132/30-64 88-99 General appearance: normal weight - Head Head exam: Present: normocephalic - Eye Eye exam: Present: EOMI Pupils: Present: AMOR - ENT ENT exam: Present: normal oropharynx - Neck Neck exam: Present: normal inspection - Respiratory Respiratory exam: Present: other (Increased bronchial airways sign in the left upper lung field with associated coarse crackles.) - Cardiovascular Cardiovascular exam: Present: irregular rhythm - GI/Abdominal GI/Abdominal exam: Present: normal bowel sounds, soft - Extremities Exam Extremities exam: Present: full ROM, other (Generalized weakness however most likely secondary to physical deconditioning) - Neurological Exam Neurological exam: Present: oriented X3, CN II-XII intact - Psychiatric Psychiatric exam: Present: normal affect, normal mood - Skin Skin exam: Present: warm, dry, vesicles (Notice some excoriations and. Patient does have a Port-A-Cath in the right subclavian system this will be Spencer II today for IV installation of medications. Discontinue peripheral.) Results - Labs CBC & BMP: 03/11/17 05:37 03/11/17 05:37 Lab Results: I have reviewed the past 24 hour labs
[2017-03-11] MEDS: VANCOMYCIN INJ 1,000 MG in SODIUM CHLORIDE 0.9% 250 ML IV SCH (20:43)
[2017-03-11] MEDS: HydrOXYzine PAMOATE 25 MG CAPSULE PO PRN (20:46)
[2017-03-11] MEDS: SIMVASTATIN 10 MG TABLET PO SCH (20:46)
[2017-03-12] MEDS: ALBUTEROL/IPRATROPIUM 3 ML NEB RESP TX SCH ×4 (00:17→19:18)
[2017-03-12 07:28] LABS: Basophils # 0.1 10*3/uL (0.0-0.2); Basophils % 0.6 % (0.0-0.8); Eosinophils # 0.4 10*3/uL (0.0-0.87); Eosinophils % 4.3 % (0.00-10.9); Hematocrit 25.4 VOL% (42.0-52.0); Hemoglobin 8.6 GM/DL (14.0-18.0); Immature Granulocytes % 0.5 %; Immature Granulocytes Absolute 0.04 #; Lymphocytes % 11.1 % (21.2-54.2); Mean Corpuscular HGB Conc 33.9 GM/DL (32-36); Mean Corpuscular Hemoglobin 28 PG (27-34); Mean Corpuscular Volume 81.9 FL (87-102); Mean Platelet Volume 9.8 FL (9.6-12.0); Monocytes # 0.9 10*3/uL (0.11-0.8); Monocytes % 10.4 % (1.7-12.7); Neutrophils # 6.5 10*3/uL (1.4-7.4); Neutrophils % 73.1 % (38.7-73.9); Platelet Count 348 T/CUMM (130-400); Red Cell Distribution Width 16.3 % (9.3-17.3); White Blood Count 8.9 T/CUMM (4-12)
[2017-03-12 07:53] LABS: Calcium 7.3 MG/DL (8.5-10.1); Osmolality,Calculated 275.4 MOS/KG (273-304); Potassium 3.8 MMOL/L (3.5-5.1)
[2017-03-12] MEDS: PANTOPRAZOLE 40 MG TABLET PO SCH (08:43)
[2017-03-12] MEDS: ASPIRIN EC 81 MG TABLET PO SCH (08:43)
[2017-03-12] MEDS: POTASSIUM CHLORIDE 20 MEQ TABLET PO SCH (08:43)
[2017-03-12] MEDS: MULTIVITAMIN (CENTRUM) TABLET PO SCH (08:43)
[2017-03-12] MEDS: DONEPEZIL 10 MG TABLET PO SCH (08:43)
[2017-03-12] MEDS: DIGOXIN 0.125 MG TABLET PO SCH (08:43)
[2017-03-12] MEDS: DILTIAZEM CD 120 MG CAPSULE PO SCH (08:43)
[2017-03-12] MEDS: FLECAINIDE 100 MG TABLET PO SCH ×2 (08:43→20:15)
[2017-03-12] MEDS: CETIRIZINE 10 MG TABLET PO SCH (08:43)
[2017-03-12] MEDS: APIXABAN 2.5 MG TABLET PO SCH ×2 (08:43→20:16)
[2017-03-12] MEDS: THEOPHYLLINE ER (24 HR) 300 MG CAPSULE PO SCH (08:43)
[2017-03-12] MEDS: AZTREONAM 1,000 MG in SODIUM CHLORIDE 0.9% 50 ML IV SCH ×2 (08:44→21:45)
[2017-03-12] MEDS: BUDESONIDE/FORMOTEROL 160-4.5 INHALER 6 GM INH SCH ×2 (08:56→20:16)
[2017-03-12] MEDS ORDERED: MAGNESIUM SULF RIDER 2 GM in PREMIX 1 EACH IV ONE (10:34)
--- NOTE | 2017-03-12 11:13 | Hospitalist Progress Note ---
Assessment and Plan (1) COPD (chronic obstructive pulmonary disease) Status: Chronic Assessment and plan: Patient presented with acute exacerbation of COPD with associated left lower lobe pneumonia. Some rhonchi in the left upper lobe today's auscultation; patient is in no respiratory distress Current Visit: No (2) Left lower lobe pneumonia Status: Acute Assessment and plan: Continue antibiotics as is now Current Visit: No Qualifiers: Pneumonia type: due to unspecified organism Qualified Code(s): J18.1 - Lobar pneumonia, unspecified organism (3) Allergy to multiple antibiotics Status: Acute Assessment and plan: This limits oral choices of antibiotics to use at home. Current Visit: Yes Hospitalist: Subjective Interval history: Patient has been seen interviewed and examined chart has been reviewed. [facility]. Reportedly as he was taught maneuvers which fell backwards hit the back of his head on the wall. No intracranial pathology found on assessment of the coming year. However he was found to have a rather profound leukocytosis. Imaging does suggest left lower lobe pneumonia. Patient does have history of vertical obstructive pulmonary disease. His leukocytosis is responded some to empiric antibiotics blood cultures are no growth as of now but needs a day or 2 to finalize. Looks better reason is kept in the hospital. His white count is actually normal on today's assessment. Exam - Constitutional Vitals: Period Temp Pulse Resp BP Sys/Finney Pulse Ox Last 24 Hr 97.6 F-99.1 F 69-80 16-18 94-133/35-61 90-99 General appearance: normal weight - Head Head exam: Present: normocephalic, atraumatic - Eye Eye exam: Present: EOMI Pupils: Present: AMOR - Respiratory Respiratory exam: Present: other (Bilateral crackles no wheezing) - Cardiovascular Cardiovascular exam: Present: regular rate and rhythm - GI/Abdominal GI/Abdominal exam: Present: normal bowel sounds, soft - Extremities Exam Extremities exam: Present: full ROM, other (However of generalized weakness) - Neurological Exam Neurological exam: Present: alert, oriented X3, CN II-XII intact - Psychiatric Psychiatric exam: Present: normal affect, normal mood - Skin Skin exam: Present: normal color, warm, dry Results - Labs CBC & BMP: 03/12/17 05:49 03/12/17 05:49 Lab Results: I have reviewed the past 24 hour labs
[2017-03-12] MEDS: SODIUM CHLORIDE 0.9% 1,000 ML IV SCH (14:26)
--- NOTE | 2017-03-12 15:33 | Event Note ---
He is 3 weeks status post palliative right colectomy for obstructing colon cancer. He had a fall at the [facility] was admitted with dehydration and's possible sepsis. He feels much better. He denies abdominal pain he is not having fever. He had an elevated white blood cell count when he was admitted t and his come down to normal. His abdomen is benign on exam. He is alert and oriented. He denies any abdominal pain or tenderness. His incision is well- healed. There is no mass or tenderness in the right side of his abdomen. I think that he does not have evidence of anastomotic leak or abscess at this point. He was scheduled to see me in the office tomorrow for routine follow- up. I will be happy to see him as needed in the hospital. Please call if I can be of any further help
[2017-03-12] MEDS: VANCOMYCIN INJ 1,000 MG in SODIUM CHLORIDE 0.9% 250 ML IV SCH (20:15)
[2017-03-12] MEDS: SIMVASTATIN 10 MG TABLET PO SCH (20:16)
[2017-03-13] MEDS: ALBUTEROL/IPRATROPIUM 3 ML NEB RESP TX SCH ×4 (00:10→20:33)
[2017-03-13] MEDS: HydrOXYzine PAMOATE 25 MG CAPSULE PO PRN ×2 (00:35→22:08)
[2017-03-13] MEDS: SODIUM CHLORIDE 0.9% 1,000 ML IV SCH ×2 (04:55→13:57)
[2017-03-13] MEDS: MULTIVITAMIN (CENTRUM) TABLET PO SCH (09:09)
[2017-03-13] MEDS: POTASSIUM CHLORIDE 20 MEQ TABLET PO SCH (09:10)
[2017-03-13] MEDS: PANTOPRAZOLE 40 MG TABLET PO SCH (09:10)
[2017-03-13] MEDS: ASPIRIN EC 81 MG TABLET PO SCH (09:10)
[2017-03-13] MEDS: DONEPEZIL 10 MG TABLET PO SCH (09:10)
[2017-03-13] MEDS: FLECAINIDE 100 MG TABLET PO SCH ×2 (09:10→21:54)
[2017-03-13] MEDS: CETIRIZINE 10 MG TABLET PO SCH (09:10)
[2017-03-13] MEDS: DIGOXIN 0.125 MG TABLET PO SCH (09:10)
[2017-03-13] MEDS: BUDESONIDE/FORMOTEROL 160-4.5 INHALER 6 GM INH SCH ×2 (09:10→22:00)
[2017-03-13] MEDS: APIXABAN 2.5 MG TABLET PO SCH ×2 (09:10→21:53)
[2017-03-13] MEDS: AZTREONAM 1,000 MG in SODIUM CHLORIDE 0.9% 50 ML IV SCH ×2 (09:10→21:57)
[2017-03-13] MEDS: THEOPHYLLINE ER (24 HR) 300 MG CAPSULE PO SCH (09:10)
[2017-03-13] MEDS: DILTIAZEM CD 120 MG CAPSULE PO SCH (09:10)
--- NOTE | 2017-03-13 09:27 | Hospitalist Progress Note ---
Assessment and Plan (1) History of esophageal cancer Status: Chronic Current Visit: No (2) Colon cancer Status: Acute Assessment and plan: He is status post recent palliative hemicolectomy for colon cancer. He has been seen in follow-up by general surgery who feels that he is incision is stable with no evidence of an anastomotic leak. 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 Current Visit: No Qualifiers: Pneumonia type: due to unspecified organism Qualified Code(s): J18.1 - Lobar pneumonia, unspecified organism Hospitalist: Subjective Interval history: Patient states that he is feeling significantly better today. He has been rehospitalized with a left lower lobe pneumonia which is presently being treated with aztreonam and vancomycin. He will require at least 2 more days of intravenous antibiotics before discharge back to the half-way. Exam - Constitutional Vitals: Period Temp Pulse Resp BP Sys/Finney Pulse Ox Last 24 Hr 97.5 F-98.3 F 71-85 15-20 120-131/57-67 92-99 General appearance: no acute distress - Head Head exam: Present: normal inspection - Neck Neck exam: Present: normal inspection - Respiratory Respiratory exam: Present: other (Scattered rhonchi.) - Cardiovascular Cardiovascular exam: Present: regular rate and rhythm - GI/Abdominal GI/Abdominal exam: Present: normal bowel sounds, soft, other (Well-healed abdominal incision. Nontender with no palpable masses or hepatosplenomegaly.) - Extremities Exam Extremities exam: Present: normal inspection - Neurological Exam Neurological exam: Present: alert, oriented X3 - Skin Skin exam: Present: normal color, warm, intact Results - Labs CBC & BMP: 03/12/17 05:49 03/12/17 05:49
[2017-03-13] MEDS ORDERED: MAGNESIUM SULF RIDER 4 GM in PREMIX 1 EACH IV PRN (12:32)
[2017-03-13] MEDS ORDERED: MAGNESIUM SULF RIDER 2 GM in PREMIX 1 EACH IV PRN (12:32)
--- NOTE | 2017-03-13 21:49 | Event Note ---
Called by nursing staff, and they reported that the patient fell. The patient reports that he get tangled in his socks. He has an abrasion to the left elbow that has been dressed. He denies any other pain or discomfort. X-rays of the left elbow have been ordered.
[2017-03-13] MEDS: SIMVASTATIN 10 MG TABLET PO SCH (21:53)
[2017-03-13] MEDS: VANCOMYCIN INJ 1,000 MG in SODIUM CHLORIDE 0.9% 250 ML IV SCH ×2 (22:21→23:40)
[2017-03-14] MEDS: ALBUTEROL/IPRATROPIUM 3 ML NEB RESP TX SCH ×4 (00:34→19:21)
--- NOTE | 2017-03-14 06:34 | XRay Report ---
XR elbow 2V LT Indication: Pain after falling injury Comparison: None available Findings: No evidence of fracture seen. The alignment of the joints appears normal. Mild elbow degenerative change is present. No soft tissue abnormality is seen. Impression: No evidence of acute injury demonstrated PROCEDURE INTERPRETED AT [facility] DEPARTMENT OF RADIOLOGY Final Report Signed by: Dr. Freddie Grijalva
[2017-03-14] MEDS: SODIUM CHLORIDE 0.9% 1,000 ML IV SCH ×4 (08:22→23:20)
--- NOTE | 2017-03-14 09:04 | Hospitalist Progress Note ---
Assessment and Plan (1) History of esophageal cancer Status: Chronic Current Visit: No (2) Colon cancer Status: Acute Assessment and plan: He is status post recent palliative hemicolectomy for colon cancer. He has been seen in follow-up by general surgery who feels that his incision is stable with no evidence of an anastomotic leak. 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 Today is his last day of intravenous antibiotics. He will be discharged tomorrow. Current Visit: No Qualifiers: Pneumonia type: due to unspecified organism Qualified Code(s): J18.1 - Lobar pneumonia, unspecified organism Hospitalist: Subjective Interval history: Patient slipped and fell last night striking his left elbow. An x-ray demonstrated no evidence of a fracture. He feels well today with no specific complaints. He will continue on 1 more day of intravenous aztreonam and vancomycin. He will be discharged tomorrow. Exam - Constitutional Vitals: Period Temp Pulse Resp BP Sys/Finney Pulse Ox Last 24 Hr 97.6 F-98.4 F 66-86 16-22 115-133/52-62 91-99 General appearance: no acute distress - Head Head exam: Present: normal inspection - Neck Neck exam: Present: normal inspection - Respiratory Respiratory exam: Present: clear to auscultation bilaterally - Cardiovascular Cardiovascular exam: Present: regular rate and rhythm - GI/Abdominal GI/Abdominal exam: Present: normal bowel sounds, soft, other (Nontender with no palpable masses or hepatosplenomegaly.) - Extremities Exam Extremities exam: Present: normal inspection - Neurological Exam Neurological exam: Present: alert, oriented X3 - Skin Skin exam: Present: normal color, warm, intact Results - Labs CBC & BMP: 03/12/17 05:49 03/12/17 05:49
[2017-03-14] MEDS: DONEPEZIL 10 MG TABLET PO SCH (09:21)
[2017-03-14] MEDS: ASPIRIN EC 81 MG TABLET PO SCH (09:21)
[2017-03-14] MEDS: APIXABAN 2.5 MG TABLET PO SCH ×2 (09:21→20:44)
[2017-03-14] MEDS: POTASSIUM CHLORIDE 20 MEQ TABLET PO SCH (09:21)
[2017-03-14] MEDS: DIGOXIN 0.125 MG TABLET PO SCH (09:21)
[2017-03-14] MEDS: DILTIAZEM CD 120 MG CAPSULE PO SCH (09:21)
[2017-03-14] MEDS: MULTIVITAMIN (CENTRUM) TABLET PO SCH (09:21)
[2017-03-14] MEDS: FLECAINIDE 100 MG TABLET PO SCH ×2 (09:22→20:44)
[2017-03-14] MEDS: AZTREONAM 1,000 MG in SODIUM CHLORIDE 0.9% 50 ML IV SCH ×2 (09:22→22:07)
[2017-03-14] MEDS: PANTOPRAZOLE 40 MG TABLET PO SCH (09:22)
[2017-03-14] MEDS: BUDESONIDE/FORMOTEROL 160-4.5 INHALER 6 GM INH SCH ×2 (09:22→20:44)
[2017-03-14] MEDS: CETIRIZINE 10 MG TABLET PO SCH (09:28)
[2017-03-14] MEDS: THEOPHYLLINE ER (24 HR) 300 MG CAPSULE PO SCH (09:28)
[2017-03-14] MEDS: VANCOMYCIN INJ 1,000 MG in SODIUM CHLORIDE 0.9% 250 ML IV SCH (10:07)
[2017-03-14] MEDS: SIMVASTATIN 10 MG TABLET PO SCH (20:44)
[2017-03-14] MEDS ORDERED: KETOROLAC 30 MG/1 ML VIAL IV PRN (23:09)
--- NOTE | 2017-03-14 23:11 | Event Note ---
Nursing staff called to report patient complaining of left shoulder pain since fall yesterday. He did not complain of shoulder pain at that time, but has had pain unrelieved by Snow all day today. XR left shoulder and Toradol ordered.
[2017-03-15] MEDS: VANCOMYCIN INJ 1,000 MG in SODIUM CHLORIDE 0.9% 250 ML IV SCH ×2 (00:08→12:41)
[2017-03-15] MEDS: ALBUTEROL/IPRATROPIUM 3 ML NEB RESP TX SCH ×3 (00:10→13:50)
--- NOTE | 2017-03-15 06:51 | XRay Report ---
XR shoulder 2V LT Indication: Pain after falling injury Comparison: None available Findings: No evidence of fracture seen. The alignment of the joints appears normal. Mild acromioclavicular joint and mild to moderate glenohumeral joint degenerative change is present. No soft tissue abnormality is seen. Impression: No evidence of acute injury demonstrated PROCEDURE INTERPRETED AT [facility] DEPARTMENT OF RADIOLOGY Final Report Signed by: Dr. Freddie Grijalva
[2017-03-15] MEDS: DONEPEZIL 10 MG TABLET PO SCH (08:34)
[2017-03-15] MEDS: DIGOXIN 0.125 MG TABLET PO SCH (08:34)
[2017-03-15] MEDS: THEOPHYLLINE ER (24 HR) 300 MG CAPSULE PO SCH (08:34)
[2017-03-15] MEDS: DILTIAZEM CD 120 MG CAPSULE PO SCH (08:34)
[2017-03-15] MEDS: FLECAINIDE 100 MG TABLET PO SCH (08:34)
[2017-03-15] MEDS: APIXABAN 2.5 MG TABLET PO SCH (08:34)
[2017-03-15] MEDS: ASPIRIN EC 81 MG TABLET PO SCH (08:34)
[2017-03-15] MEDS: BUDESONIDE/FORMOTEROL 160-4.5 INHALER 6 GM INH SCH (08:35)
[2017-03-15] MEDS: PANTOPRAZOLE 40 MG TABLET PO SCH (08:35)
[2017-03-15] MEDS: POTASSIUM CHLORIDE 20 MEQ TABLET PO SCH (08:35)
[2017-03-15] MEDS: AZTREONAM 1,000 MG in SODIUM CHLORIDE 0.9% 50 ML IV SCH (08:35)
[2017-03-15] MEDS: MULTIVITAMIN (CENTRUM) TABLET PO SCH (08:35)
[2017-03-15] MEDS: CETIRIZINE 10 MG TABLET PO SCH (08:35)
--- NOTE | 2017-03-15 08:58 | Discharge Summary ---
Hospital Course - Hospital Course Hospital Course: Mr. Ambrosio is a 89 year old white male with history of GERD, hypertension, afib , COPD, pneumonia, and recent colon cancer presented to the ED today via EMS for further evaluation after a fall at the [facility]. The patient was attempted to use the bathroom and afterwards he became unbalanced and fell over backwards in his wheelchair and struck his head on the wall. Patient did not lose consciousness. Patient was brought in for evaluation and noted to have a fever of 102 when he arrived. Patient complains of a mild cough but denies any chest pain, nausea, vomiting, or diarrhea. Patient denies mild abdominal pain from his r recent partial colectomy. Labs were obtained and patient was also noted to have a white count of 16.8. Chest x-ray was performed and showed mild decompensation. Head CT was negative. Patient's case was discussed with ER physician and hospitalist Dr. Reyna. Patient will be admitted to the hospitalist service for further evaluation and treatment. Patient was diagnosed with a left lower lobe pneumonia. He was treated in the hospital with intravenous aztreonam and vancomycin. He did well thereafter. By the time of his discharge he was feeling much better and eager to leave the hospital. Diagnosis - Discharge Diagnosis (1) History of esophageal cancer Status: Chronic (2) Colon cancer Status: Chronic (3) Left lower lobe pneumonia Status: Acute Discharge Plan - Discharge Data Disposition: Disch/Xfer to Snf Condition at Discharge: Stable Discharge Diet: advance to your usual diet Activity: resume usual activities as tolerated - Discharge Medications Continue Simvastatin [Zocor] 10 mg PO BEDTIME Multivitamin [One Daily Multivitamin] 1 tablet PO DAILY HydrOXYzine PAMOATE CAP [Vistaril Cap] 25 mg PO BEDTIME PRN PRN Reason: Anxiety Furosemide 20 mg PO DAILY Flecainide [Tambocor] 100 mg PO BID Donepezil HCl 10 mg PO DAILY Docusate Sodium [Colace] 100 mg PO QPM PRN PRN Reason: Constipation Digoxin 125 mcg PO DAILY Cetirizine Tab [ZyrTEC Tab] 10 mg PO DAILY Aspirin [Ecotrin] 81 mg PO DAILY Albuterol/Ipratropium Neb [Duoneb] 3 ml RESP TX RT Q6H #30 Budesonide/Formoterol 160-4.5 [Symbicort 160-4.5] 2 puff INH BID #1 inhaler Diltiazem Cd Cap [Cardizem CD] 120 mg PO DAILY #30 capsule Fluconazole Tab [Diflucan Tab] 100 mg PO DAILY #10 tablet Ondansetron Odt Tab [Zofran Odt] 4 mg PO Q4H PRN #30 tablet PRN Reason: Nausea Pantoprazole Tab [Protonix Tab] 40 mg PO DAILY #30 tablet Potassium Chloride Cap/Tab [K Dur] 40 meq PO DAILY #30 tablet Apixaban [Eliquis] 2.5 mg PO BID #60 Theophylline ER Cap (24 Hr) [Tor-24] 300 mg PO DAILY #30 Prochlorperazine Tab [Compazine Tab] 10 mg PO Q12H PRN PRN Reason: Nausea/Vomiting LORazepam TAB [Ativan Tab] 1 mg PO DAILY Magnesium Hydroxide Susp [Milk of Magnesia] 30 ml PO DAILY PRN PRN Reason: Constipation HYDROcodone/ACETAMIN 5-325 [Harwood 5-325] 1 tablet PO Q6HR PRN #30 PRN Reason: Pain - Follow Up or Referral - Forms/Instructions Exam - Constitutional Vitals: Period Temp Pulse Resp BP Sys/Finney Pulse Ox Last 24 Hr 97.3 F-98.5 F 75-85 16-20 131-145/40-73 91-98 Discharge Results Procedures and tests throughout hospitalization: Pending Orders 03/10/17 16:08 Blood Culture Stat 03/15/17 11:30 BMP [Basic Metabolic Panel] Timed Vancomycin,Trough Timed Labs on day of discharge: Preliminary micro results at discharge 03/10/17 16:08 Blood Culture - Preliminary Blood No growth at 3 days 03/10/17 16:08 Blood Culture - Preliminary Blood No growth at 3 days DS: Provider Date of admission: 03/10/17 17:56 Primary care physician: Rogelio Boudreaux MD Attending physician on admission: Evelio Alcaraz MD Consults: 03/12/17 14:51 Consult to Physician [CONS] Routine Comment: Consulting Provider: Arvind Lloyd III. Person Notified: AMBIKA Date Notified: 03/12/17 Time Notified: 14:59 Consult Notification Comment: Pt had a colectomy 3 weeks ago, follow up was today at the clinic, pt was unable to go. Please see while he is in the hospital. Discharging clinician: Cesar Morales
[2017-03-15 11:38] VITALS: BP 142/62
[2017-03-15 12:07] LABS: Calcium 7.6 MG/DL (8.5-10.1); Osmolality,Calculated 268.8 MOS/KG (273-304)
== END 2017-03-15 14:45 | DRG 190 ==
LOC: EDUNIT# → EDBD → N.ED 15:28 → N.EDINP 17:56 → SUATTDRO 17:56 → N.EDINP 19:00 → N.5E 19:23
PROVIDERS: ADMIT Internal Medicine

== ENCOUNTER 2017-04-01 18:01 | Inpatient (IN) ==
[2017-04-01] MEDS ORDERED: SODIUM CHLORIDE 0.9% 1,000 ML IV STA (18:33)
[2017-04-01 18:43] LABS: Basophils # 0.2 10*3/uL (0.0-0.2); Basophils % 1.2 % (0.0-0.8); Eosinophils # 0.4 10*3/uL (0.0-0.87); Eosinophils % 3.3 % (0.00-10.9); Hematocrit 31.7 VOL% (42.0-52.0); Hemoglobin 10.6 GM/DL (14.0-18.0); Immature Granulocytes % 0.5 %; Immature Granulocytes Absolute 0.07 #; Lymphocytes # 1.3 10*3/uL (1.4-4.0); Lymphocytes % 9.4 % (21.2-54.2); Mean Corpuscular HGB Conc 33.4 GM/DL (32-36); Mean Corpuscular Hemoglobin 28 PG (27-34); Mean Corpuscular Volume 84.3 FL (87-102); Mean Platelet Volume 9.7 FL (9.6-12.0); Monocytes # 1.7 10*3/uL (0.11-0.8); Monocytes % 12.4 % (1.7-12.7); Neutrophils # 9.9 10*3/uL (1.4-7.4); Neutrophils % 73.2 % (38.7-73.9); Platelet Count 306 T/CUMM (130-400); Red Blood Count 3.76 MC/CUMM (3.8-5.5); Red Cell Distribution Width 16.7 % (9.3-17.3); White Blood Count 13.5 T/CUMM (4-12)
[2017-04-01 18:50] LABS: Albumin 2.7 G/DL (3.4-5.0); Bilirubin,Total 0.4 MG/DL (0.2-1.0); Calcium 8.7 MG/DL (8.5-10.1); Potassium 3.8 MMOL/L (3.5-5.1); Total Protein 5.7 G/DL (6.4-8.3)
[2017-04-01 19:04] LABS: Apearance,Urine Slightly Hazy (Clear); Bilirubin,Urine Negative (Negative); Blood, Urine Negative (Negative); Glucose,Urine (UA) Negative (Negative); Hyaline Casts,Urine 9 /LPF (0-3); Ketones,Urine Negative (Negative); Mucus,Urine Few /LPF (Occasional); Nitrite,Urine Negative (Negative); Protein,Urine Negative; RBC,Urine 5 /HPF (0-4); Squamous Epithelial Cell,Urine Occasional /HPF (0-10); Urine Color Yellow (Yellow); Urine Specific Gravity 1.012 (1.001-1.035); Urine Urobilinogen < 2.0 EU/DL (0.2-1.0); WBC,Urine 8 /HPF (0-6)
[2017-04-01] MEDS ORDERED: LEVOFLOXACIN INJ 500 MG in PREMIX 1 EACH IV STA (20:37)
[2017-04-01] MEDS ORDERED: LEVOFLOXACIN INJ 100 ML IV ONE (20:53)
[2017-04-01] MEDS ORDERED: ACETAMINOPHEN 325 MG TABLET PO PRN (21:39)
[2017-04-01] MEDS ORDERED: DOCUSATE SODIUM 100 MG CAPSULE PO PRN (21:39)
[2017-04-01] MEDS: SODIUM CHLORIDE 0.9% 1,000 ML IV SCH (22:50)
[2017-04-01] MEDS: FLECAINIDE 100 MG TABLET PO SCH (23:06)
[2017-04-01] MEDS: BUDESONIDE/FORMOTEROL 160-4.5 INHALER 6 GM INH SCH (23:07)
[2017-04-01] MEDS: SIMVASTATIN 10 MG TABLET PO SCH (23:07)
[2017-04-01] MEDS: APIXABAN 2.5 MG TABLET PO SCH (23:07)
[2017-04-02] MEDS: ALBUTEROL/IPRATROPIUM 3 ML NEB RESP TX SCH ×4 (00:42→19:53)
[2017-04-02] MEDS ORDERED: MAGNESIUM SULF RIDER 4 GM in PREMIX 1 EACH IV PRN (00:47)
[2017-04-02] MEDS: MAGNESIUM SULF RIDER 2 GM in PREMIX 1 EACH IV PRN ×2 (01:02→03:13)
[2017-04-02 06:15] LABS: Basophils # 0.1 10*3/uL (0.0-0.2); Eosinophils # 0.2 10*3/uL (0.0-0.87); Eosinophils % 2.1 % (0.00-10.9); Hematocrit 26.4 VOL% (42.0-52.0); Hemoglobin 8.9 GM/DL (14.0-18.0); Immature Granulocytes % 0.6 %; Immature Granulocytes Absolute 0.06 #; Lymphocytes # 1.1 10*3/uL (1.4-4.0); Lymphocytes % 10.1 % (21.2-54.2); Mean Corpuscular HGB Conc 33.7 GM/DL (32-36); Mean Corpuscular Hemoglobin 28 PG (27-34); Mean Corpuscular Volume 83.3 FL (87-102); Mean Platelet Volume 9.5 FL (9.6-12.0); Monocytes # 1.7 10*3/uL (0.11-0.8); Monocytes % 16.3 % (1.7-12.7); Neutrophils # 7.3 10*3/uL (1.4-7.4); Neutrophils % 69.9 % (38.7-73.9); Platelet Count 251 T/CUMM (130-400); Red Blood Count 3.17 MC/CUMM (3.8-5.5); Red Cell Distribution Width 16.6 % (9.3-17.3); White Blood Count 10.4 T/CUMM (4-12)
[2017-04-02 06:44] LABS: Eosinophils 6 % (0-10); Hypochromasia 1+; Lymphocytes 15 % (20-55); Platelet Estimate Adequate; Segmented Neutrophils 70 % (50-85); Target Cells Slight; Total Cells Counted 100
[2017-04-02 06:48] LABS: Calcium 8.3 MG/DL (8.5-10.1); Osmolality,Calculated 275.8 MOS/KG (273-304); Potassium 3.4 MMOL/L (3.5-5.1)
[2017-04-02 07:03] LABS: Theophylline 6.7 UG/ML (10-20)
[2017-04-02] MEDS: THEOPHYLLINE ER (24 HR) 300 MG CAPSULE PO SCH (10:18)
[2017-04-02] MEDS: DONEPEZIL 10 MG TABLET PO SCH (10:18)
[2017-04-02] MEDS: CETIRIZINE 10 MG TABLET PO SCH (10:18)
[2017-04-02] MEDS: MULTIVITAMIN (CENTRUM) TABLET PO SCH (10:19)
[2017-04-02] MEDS: DILTIAZEM CD 120 MG CAPSULE PO SCH (10:19)
[2017-04-02] MEDS: FLECAINIDE 100 MG TABLET PO SCH ×2 (10:19→20:51)
[2017-04-02] MEDS: APIXABAN 2.5 MG TABLET PO SCH ×2 (10:19→20:51)
[2017-04-02] MEDS: PANTOPRAZOLE 40 MG TABLET PO SCH (10:19)
[2017-04-02] MEDS: ASPIRIN EC 81 MG TABLET PO SCH (10:20)
[2017-04-02] MEDS: BUDESONIDE/FORMOTEROL 160-4.5 INHALER 6 GM INH SCH ×2 (10:23→20:50)
[2017-04-02] MEDS: DIGOXIN 0.125 MG TABLET PO SCH (13:20)
[2017-04-02] MEDS: LEVOFLOXACIN INJ 500 MG in PREMIX 1 EACH IV SCH (20:51)
[2017-04-02] MEDS: SIMVASTATIN 10 MG TABLET PO SCH (20:52)
[2017-04-02] MEDS: SODIUM CHLORIDE 0.9% 1,000 ML IV SCH (20:55)
[2017-04-02] MEDS: IPRATROPIUM 0.06% NASAL SPRAY 15 ML BOTTLE BOTH NARES SCH (21:04)
[2017-04-03] MEDS: ALBUTEROL/IPRATROPIUM 3 ML NEB RESP TX SCH ×4 (01:00→19:12)
[2017-04-03] MEDS: ASPIRIN EC 81 MG TABLET PO SCH (08:39)
[2017-04-03] MEDS: DONEPEZIL 10 MG TABLET PO SCH (08:39)
[2017-04-03] MEDS: MULTIVITAMIN (CENTRUM) TABLET PO SCH (08:40)
[2017-04-03] MEDS: FLECAINIDE 100 MG TABLET PO SCH ×2 (08:40→21:01)
[2017-04-03] MEDS: PANTOPRAZOLE 40 MG TABLET PO SCH (08:40)
[2017-04-03] MEDS: BUDESONIDE/FORMOTEROL 160-4.5 INHALER 6 GM INH SCH ×2 (08:40→21:00)
[2017-04-03] MEDS: IPRATROPIUM 0.06% NASAL SPRAY 15 ML BOTTLE BOTH NARES SCH ×3 (08:40→21:00)
[2017-04-03] MEDS: APIXABAN 2.5 MG TABLET PO SCH ×2 (08:40→21:01)
[2017-04-03] MEDS: DILTIAZEM CD 120 MG CAPSULE PO SCH (08:40)
[2017-04-03] MEDS: THEOPHYLLINE ER (24 HR) 300 MG CAPSULE PO SCH (08:40)
[2017-04-03] MEDS: CETIRIZINE 10 MG TABLET PO SCH (08:40)
[2017-04-03] MEDS: SODIUM CHLORIDE 0.9% 1,000 ML IV SCH (11:08)
[2017-04-03] MEDS ORDERED: VANCOMYCIN INJ 1,000 MG in SODIUM CHLORIDE 0.9% 250 ML IV SCH (12:00)
[2017-04-03] MEDS: DIGOXIN 0.125 MG TABLET PO SCH (12:18)
[2017-04-03] MEDS: LEVOFLOXACIN INJ 500 MG in PREMIX 1 EACH IV SCH (21:00)
[2017-04-03] MEDS: SIMVASTATIN 10 MG TABLET PO SCH (21:01)
[2017-04-04] MEDS: ALBUTEROL/IPRATROPIUM 3 ML NEB RESP TX SCH ×4 (01:21→19:48)
[2017-04-04] MEDS: SODIUM CHLORIDE 0.9% 1,000 ML IV SCH (03:24)
[2017-04-04 06:16] LABS: Basophils # 0.1 10*3/uL (0.0-0.2); Basophils % 0.8 % (0.0-0.8); Eosinophils # 0.9 10*3/uL (0.0-0.87); Eosinophils % 12.6 % (0.00-10.9); Hemoglobin 8.6 GM/DL (14.0-18.0); Immature Granulocytes % 0.6 %; Immature Granulocytes Absolute 0.04 #; Lymphocytes # 1.1 10*3/uL (1.4-4.0); Lymphocytes % 15.7 % (21.2-54.2); Mean Corpuscular HGB Conc 34.4 GM/DL (32-36); Mean Corpuscular Hemoglobin 28 PG (27-34); Mean Corpuscular Volume 82.5 FL (87-102); Mean Platelet Volume 9.9 FL (9.6-12.0); Monocytes # 0.9 10*3/uL (0.11-0.8); Monocytes % 12.3 % (1.7-12.7); Neutrophils # 4.2 10*3/uL (1.4-7.4); Platelet Count 282 T/CUMM (130-400); Red Blood Count 3.03 MC/CUMM (3.8-5.5); Red Cell Distribution Width 16.8 % (9.3-17.3); White Blood Count 7.2 T/CUMM (4-12)
[2017-04-04 06:42] LABS: Eosinophils 15 % (0-10); Hypochromasia 1+; Lymphocytes 14 % (20-55); Platelet Estimate Adequate; Segmented Neutrophils 66 % (50-85); Total Cells Counted 100
[2017-04-04 06:47] LABS: Calcium 7.7 MG/DL (8.5-10.1); Osmolality,Calculated 276.5 MOS/KG (273-304); Potassium 3.4 MMOL/L (3.5-5.1)
[2017-04-04] MEDS: FLECAINIDE 100 MG TABLET PO SCH ×2 (08:46→21:04)
[2017-04-04] MEDS: DILTIAZEM CD 120 MG CAPSULE PO SCH (08:46)
[2017-04-04] MEDS: CETIRIZINE 10 MG TABLET PO SCH (08:46)
[2017-04-04] MEDS: THEOPHYLLINE ER (24 HR) 300 MG CAPSULE PO SCH (08:47)
[2017-04-04] MEDS: ASPIRIN EC 81 MG TABLET PO SCH (08:47)
[2017-04-04] MEDS: MULTIVITAMIN (CENTRUM) TABLET PO SCH (08:47)
[2017-04-04] MEDS: PANTOPRAZOLE 40 MG TABLET PO SCH (08:47)
[2017-04-04] MEDS: APIXABAN 2.5 MG TABLET PO SCH ×2 (08:47→21:04)
[2017-04-04] MEDS: DONEPEZIL 10 MG TABLET PO SCH (08:47)
[2017-04-04] MEDS: BUDESONIDE/FORMOTEROL 160-4.5 INHALER 6 GM INH SCH ×2 (08:48→21:04)
[2017-04-04] MEDS: IPRATROPIUM 0.06% NASAL SPRAY 15 ML BOTTLE BOTH NARES SCH ×3 (08:48→21:04)
[2017-04-04] MEDS: ONDANSETRON 4 MG/2 ML VIAL IV PRN (09:30)
[2017-04-04] MEDS: DIGOXIN 0.125 MG TABLET PO SCH (12:04)
[2017-04-04] MEDS: VANCOMYCIN INJ 1,000 MG in SODIUM CHLORIDE 0.9% 250 ML IV SCH (14:47)
[2017-04-04] MEDS: SIMVASTATIN 10 MG TABLET PO SCH (21:04)
[2017-04-05] MEDS: ALBUTEROL/IPRATROPIUM 3 ML NEB RESP TX SCH ×4 (00:11→19:37)
[2017-04-05] MEDS: VANCOMYCIN INJ 1,000 MG in SODIUM CHLORIDE 0.9% 250 ML IV SCH ×2 (03:47→15:29)
[2017-04-05] MEDS: PANTOPRAZOLE 40 MG TABLET PO SCH (08:22)
[2017-04-05] MEDS: ASPIRIN EC 81 MG TABLET PO SCH (08:22)
[2017-04-05] MEDS: IPRATROPIUM 0.06% NASAL SPRAY 15 ML BOTTLE BOTH NARES SCH ×3 (08:22→21:41)
[2017-04-05] MEDS: DILTIAZEM CD 120 MG CAPSULE PO SCH (08:22)
[2017-04-05] MEDS: APIXABAN 2.5 MG TABLET PO SCH ×2 (08:22→21:40)
[2017-04-05] MEDS: FLECAINIDE 100 MG TABLET PO SCH ×2 (08:22→21:39)
[2017-04-05] MEDS: CETIRIZINE 10 MG TABLET PO SCH (08:22)
[2017-04-05] MEDS: DONEPEZIL 10 MG TABLET PO SCH (08:22)
[2017-04-05] MEDS: MULTIVITAMIN (CENTRUM) TABLET PO SCH (08:22)
[2017-04-05] MEDS: THEOPHYLLINE ER (24 HR) 300 MG CAPSULE PO SCH (08:22)
[2017-04-05] MEDS: BUDESONIDE/FORMOTEROL 160-4.5 INHALER 6 GM INH SCH ×2 (08:23→21:41)
[2017-04-05] MEDS: SODIUM CHLORIDE 0.9% 1,000 ML IV SCH (08:24)
[2017-04-05] MEDS: DIGOXIN 0.125 MG TABLET PO SCH (12:29)
[2017-04-05] MEDS: ERTAPENEM 1,000 MG in SODIUM CHLORIDE 0.9% 50 ML IV SCH (18:08)
[2017-04-05] MEDS: SIMVASTATIN 10 MG TABLET PO SCH (21:39)
[2017-04-06] MEDS: ALBUTEROL/IPRATROPIUM 3 ML NEB RESP TX SCH ×4 (00:08→19:36)
[2017-04-06] MEDS: SODIUM CHLORIDE 0.9% 1,000 ML IV SCH ×3 (01:22→17:40)
[2017-04-06] MEDS: VANCOMYCIN INJ 1,000 MG in SODIUM CHLORIDE 0.9% 250 ML IV SCH (03:04)
[2017-04-06 05:05] LABS: Calcium 7.7 MG/DL (8.5-10.1); Potassium 3.8 MMOL/L (3.5-5.1)
[2017-04-06] MEDS: IPRATROPIUM 0.06% NASAL SPRAY 15 ML BOTTLE BOTH NARES SCH ×3 (10:11→20:44)
[2017-04-06] MEDS: BUDESONIDE/FORMOTEROL 160-4.5 INHALER 6 GM INH SCH ×2 (10:11→20:44)
[2017-04-06] MEDS: THEOPHYLLINE ER (24 HR) 300 MG CAPSULE PO SCH (10:15)
[2017-04-06] MEDS: CETIRIZINE 10 MG TABLET PO SCH (10:15)
[2017-04-06] MEDS: FLECAINIDE 100 MG TABLET PO SCH ×2 (10:15→20:45)
[2017-04-06] MEDS: DONEPEZIL 10 MG TABLET PO SCH (10:15)
[2017-04-06] MEDS: DILTIAZEM CD 120 MG CAPSULE PO SCH (10:15)
[2017-04-06] MEDS: ASPIRIN EC 81 MG TABLET PO SCH (10:15)
[2017-04-06] MEDS: PANTOPRAZOLE 40 MG TABLET PO SCH (10:15)
[2017-04-06] MEDS: APIXABAN 2.5 MG TABLET PO SCH ×2 (11:01→20:47)
[2017-04-06] MEDS: MULTIVITAMIN (CENTRUM) TABLET PO SCH (11:02)
[2017-04-06] MEDS: DIGOXIN 0.125 MG TABLET PO SCH (15:33)
[2017-04-06] MEDS: ERTAPENEM 1,000 MG in SODIUM CHLORIDE 0.9% 50 ML IV SCH (17:41)
[2017-04-06] MEDS: SIMVASTATIN 10 MG TABLET PO SCH (20:47)
[2017-04-07] MEDS: ALBUTEROL/IPRATROPIUM 3 ML NEB RESP TX SCH ×4 (01:54→19:00)
[2017-04-07] MEDS: SODIUM CHLORIDE 0.9% 1,000 ML IV SCH ×2 (04:18→17:58)
[2017-04-07] MEDS: ONDANSETRON 4 MG/2 ML VIAL IV PRN (09:32)
[2017-04-07] MEDS: THEOPHYLLINE ER (24 HR) 300 MG CAPSULE PO SCH (10:11)
[2017-04-07] MEDS: APIXABAN 2.5 MG TABLET PO SCH ×2 (10:11→20:45)
[2017-04-07] MEDS: DONEPEZIL 10 MG TABLET PO SCH (10:11)
[2017-04-07] MEDS: DILTIAZEM CD 120 MG CAPSULE PO SCH (10:12)
[2017-04-07] MEDS: FLECAINIDE 100 MG TABLET PO SCH ×2 (10:12→20:44)
[2017-04-07] MEDS: MULTIVITAMIN (CENTRUM) TABLET PO SCH (10:14)
[2017-04-07] MEDS: ASPIRIN EC 81 MG TABLET PO SCH (10:14)
[2017-04-07] MEDS: PANTOPRAZOLE 40 MG TABLET PO SCH (10:14)
[2017-04-07] MEDS: IPRATROPIUM 0.06% NASAL SPRAY 15 ML BOTTLE BOTH NARES SCH ×3 (10:15→20:46)
[2017-04-07] MEDS: CETIRIZINE 10 MG TABLET PO SCH (10:15)
[2017-04-07] MEDS: BUDESONIDE/FORMOTEROL 160-4.5 INHALER 6 GM INH SCH ×2 (10:16→20:46)
[2017-04-07] MEDS: DIGOXIN 0.125 MG TABLET PO SCH (13:20)
[2017-04-07] MEDS: ERTAPENEM 1,000 MG in SODIUM CHLORIDE 0.9% 50 ML IV SCH (17:26)
[2017-04-07] MEDS: SIMVASTATIN 10 MG TABLET PO SCH (20:45)
[2017-04-08] MEDS: ALBUTEROL/IPRATROPIUM 3 ML NEB RESP TX SCH ×4 (07:37→19:25)
[2017-04-08] MEDS: SODIUM CHLORIDE 0.9% 1,000 ML IV SCH ×2 (07:43→22:47)
[2017-04-08] MEDS: ASPIRIN EC 81 MG TABLET PO SCH (09:48)
[2017-04-08] MEDS: FLECAINIDE 100 MG TABLET PO SCH ×2 (09:48→20:29)
[2017-04-08] MEDS: THEOPHYLLINE ER (24 HR) 300 MG CAPSULE PO SCH (09:48)
[2017-04-08] MEDS: APIXABAN 2.5 MG TABLET PO SCH ×2 (09:48→20:30)
[2017-04-08] MEDS: PANTOPRAZOLE 40 MG TABLET PO SCH (09:49)
[2017-04-08] MEDS: CETIRIZINE 10 MG TABLET PO SCH (09:49)
[2017-04-08] MEDS: MULTIVITAMIN (CENTRUM) TABLET PO SCH (09:49)
[2017-04-08] MEDS: DILTIAZEM CD 120 MG CAPSULE PO SCH (09:49)
[2017-04-08] MEDS: DONEPEZIL 10 MG TABLET PO SCH (09:49)
[2017-04-08] MEDS: IPRATROPIUM 0.06% NASAL SPRAY 15 ML BOTTLE BOTH NARES SCH ×3 (09:49→20:31)
[2017-04-08] MEDS: BUDESONIDE/FORMOTEROL 160-4.5 INHALER 6 GM INH SCH ×2 (09:50→20:31)
[2017-04-08] MEDS: DIGOXIN 0.125 MG TABLET PO SCH (13:21)
[2017-04-08] MEDS: ERTAPENEM 1,000 MG in SODIUM CHLORIDE 0.9% 50 ML IV SCH (18:20)
[2017-04-08] MEDS: SIMVASTATIN 10 MG TABLET PO SCH (20:30)
[2017-04-09] MEDS: ALBUTEROL/IPRATROPIUM 3 ML NEB RESP TX SCH ×3 (07:27→19:24)
[2017-04-09] MEDS: DONEPEZIL 10 MG TABLET PO SCH (09:19)
[2017-04-09] MEDS: PANTOPRAZOLE 40 MG TABLET PO SCH (09:19)
[2017-04-09] MEDS: CETIRIZINE 10 MG TABLET PO SCH (09:19)
[2017-04-09] MEDS: FLECAINIDE 100 MG TABLET PO SCH ×2 (09:19→20:45)
[2017-04-09] MEDS: ASPIRIN EC 81 MG TABLET PO SCH (09:19)
[2017-04-09] MEDS: THEOPHYLLINE ER (24 HR) 300 MG CAPSULE PO SCH (09:19)
[2017-04-09] MEDS: MULTIVITAMIN (CENTRUM) TABLET PO SCH (09:19)
[2017-04-09] MEDS: DILTIAZEM CD 120 MG CAPSULE PO SCH (09:19)
[2017-04-09] MEDS: BUDESONIDE/FORMOTEROL 160-4.5 INHALER 6 GM INH SCH ×2 (09:20→20:48)
[2017-04-09] MEDS: IPRATROPIUM 0.06% NASAL SPRAY 15 ML BOTTLE BOTH NARES SCH ×3 (09:20→20:48)
[2017-04-09] MEDS: APIXABAN 2.5 MG TABLET PO SCH ×2 (09:22→20:46)
[2017-04-09] MEDS: DIGOXIN 0.125 MG TABLET PO SCH (14:24)
[2017-04-09] MEDS: SODIUM CHLORIDE 0.9% 1,000 ML IV SCH (14:24)
[2017-04-09] MEDS: SIMVASTATIN 10 MG TABLET PO SCH (20:45)
[2017-04-09] MEDS: ERTAPENEM 1,000 MG in SODIUM CHLORIDE 0.9% 50 ML IV SCH (20:46)
[2017-04-09] MEDS: ONDANSETRON 4 MG/2 ML VIAL IV PRN (20:47)
[2017-04-10] MEDS: ALBUTEROL/IPRATROPIUM 3 ML NEB RESP TX SCH ×3 (00:51→13:33)
[2017-04-10] MEDS: SODIUM CHLORIDE 0.9% 1,000 ML IV SCH (02:12)
[2017-04-10] MEDS: FLECAINIDE 100 MG TABLET PO SCH (08:52)
[2017-04-10] MEDS: MULTIVITAMIN (CENTRUM) TABLET PO SCH (08:52)
[2017-04-10] MEDS: CETIRIZINE 10 MG TABLET PO SCH (08:53)
[2017-04-10] MEDS: THEOPHYLLINE ER (24 HR) 300 MG CAPSULE PO SCH (08:53)
[2017-04-10] MEDS: APIXABAN 2.5 MG TABLET PO SCH (08:53)
[2017-04-10] MEDS: IPRATROPIUM 0.06% NASAL SPRAY 15 ML BOTTLE BOTH NARES SCH (08:53)
[2017-04-10] MEDS: DONEPEZIL 10 MG TABLET PO SCH (08:53)
[2017-04-10] MEDS: BUDESONIDE/FORMOTEROL 160-4.5 INHALER 6 GM INH SCH (08:53)
[2017-04-10] MEDS: DILTIAZEM CD 120 MG CAPSULE PO SCH (08:53)
[2017-04-10] MEDS: ASPIRIN EC 81 MG TABLET PO SCH (08:53)
[2017-04-10] MEDS: PANTOPRAZOLE 40 MG TABLET PO SCH (08:53)
[2017-04-10 11:29] VITALS: BP 126/68
[2017-04-10] MEDS: DIGOXIN 0.125 MG TABLET PO SCH (14:02)
== END 2017-04-10 15:30 | DRG 872 ==
LOC: EDUNIT# → EDBD → N.ED 18:01 → N.EDINP 20:32 → SUATTDRO 20:32 → N.EDINP 21:28 → N.2E 21:38
PROVIDERS: ADMIT Internal Medicine; ATTEND Internal Medicine